=== PATIENT | male | born 1955 | race Caucasian/White ===

== ENCOUNTER 2016-10-24 16:48 | Inpatient (IN) | payer BC, OTHER ==
[~2016-10-24] VITALS: Ht 172.7 cm; Wt 79.8 kg
[~2016-10-24 16:48] MED LIST: ATOR10TA82 PO
[2016-10-24 18:08] LABS: BASO % 0.1 %; BASO ABS # 0.01 K/uL (0-0.2); COMPLETE YES; EOS % 0.3 %; HEMATOCRIT 52.5 % (42-52); IG% 0.3 %; LYMPH % 19.3 %; LYMPH ABS # 1.32 K/uL (1.2-3.4); MEAN CELL VOLUME 90.5 fL (80-100); MEAN CORPUSCULAR HGB CONC 34.3 g/dl (32-36); MEAN PLATELET VOLUME 11.6 fL (7.4-10.4); MONO % 12.3 %; NEUT % 67.7 %; PLATELET COUNT 174 K/uL (130-400); WHITE BLOOD COUNT 6.85 K/uL (4.8-10.8)
[2016-10-24] MEDS ORDERED: SODIUM CHLORIDE 0.9% 1000ML 1,000 ML IV STA ×2 (18:08)
[2016-10-24] MEDS ORDERED: ONDANSETRON 8 MG/54 ML D5W IV STA (18:08)
[2016-10-24 18:25] LABS: BUN/CREATININE RATIO 12.3 (10-20); CALCIUM 9.1 mg/dl (8.5-10.1); CREATININE 1.1 mg/dl (0.60-1.40); POTASSIUM 3.7 mmol/L (3.5-5.1)
[2016-10-24] MEDS ORDERED: MULT1PAK42 PO (18:26)
--- NOTE | 2016-10-24 19:06 | DIAGNOSTIC IMAGING REPORT ---
ABDOMEN AND PELVIS CT WITHOUT CONTRAST CT DOSE: 371.02 mGy.cm HISTORY: Pain LLQ pain, vomiting, diarrhea. H/o colon resect, diverticulitis TECHNIQUE: Multiaxial CT images of the abdomen and pelvis were performed without contrast. COMPARISON STUDY: 12/17/2014 FINDINGS: Lung bases are clear. Diffuse fatty infiltration of liver is again noted. Kidneys negative for hydronephrosis. Anchors is unremarkable. Findings a fat-containing ventral hernia again noted. There is no evidence for bowel containment currently. There is a small nonobstructive jules umbilical hernia. There are several distended loops of small bowel in the left lower quadrant region. There are several mesenteric nodes progressive from the prior exam. Minimal mesenteric infiltrative changes present. Colon is decompressed throughout. Configuration of the colon is unchanged from the prior study. Bladder is midline. IMPRESSION: 1. Findings suggesting partial small bowel obstruction relating to left lower quadrant. 2. And obstructing lesion is not well seen, with the appearance suggestive of potential adhesions 3. Collapsed colon with scattered diverticuli. 4. No evidence for acute diverticulitis. 5. Several reactive mesenteric nodes mid abdomen 6. Diffuse fatty infiltration of the liver unchanged Electronically signed by: Ruel Saenz M.D. 10/24/2016 7:04 PM
[2016-10-24] MEDS: HYDROmorphone INJ 0.5 MG/0.5 ML SYR IV PRN ×2 (19:47→20:54)
[2016-10-24] MEDS ORDERED: PROCHLORPERAZINE IV PRN (20:00)
--- NOTE | 2016-10-24 20:09 | History and Physical ---
History & Physical Date & Time of Service: Oct 24, 2016 at 20:01 Chief Complaint: Vomiting Since Yesterday,Flu Symptoms,Dehydration Primary Care Physician: Octavio Dee M.D. History of Present Illness Source: patient 61 y/o M w/Hx bowel resection due to diverticulitis in 2003. 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 States he may have had a fever at one point, denies constipation. CT obtained in ER is suspicious for partial SBO. Pt responded to antiemetics and narcotics. Past Medical/Surgical History Medical Problems: (1) Diverticulitis Status: Resolved 2) Bicuspid aortic valve with mild stenosis on echo 2014 Surgical Problems: (1) S/P colon resection Status: Resolved 2003 Family History Blood clots Kidney disease Kidney stones Father with heart disease - no specifics Social History Smoking Status: Never Smoker Drug Use: none Marital Status: Occupational Status: employed Multi-Drug Resistant Organisms History of MDRO: No Allergies Coded Allergies: No Known Allergies (Verified , 05/23/16) Home Medications Scheduled PRN Multiple Vitamins W/ Minerals (Emergen-C Immune), 1 PKT PO DAILY PRN for Review of Systems Constitutional: No chills, No fever, No sweats Eyes: No eye pain, No worsening of vision ENT: No hearing loss, No nasal symptoms, No unusual epistaxis Respiratory: No cough, No sputum, No wheezing Cardiovascular: No PND, No chest pain, No orthopnea Abdomen: + nausea, + pain, + vomiting, No constipation, No diarrhea Musculoskeletal: No joint pain, No muscle pain Genitourinary - Male: No dysuria, No hematuria, No urinary frequency, No urinary urgency Neurologic: No memory loss, No numbness/tingling, No paralysis, No weakness Psychiatric: No depression symptoms Endocrine: No fatigue Hematologic / Lymphatic: No abnormal bleeding/bruising Integumentary: No rash Allergic / Immunologic: No environmental allergies Physical Exam Vital Signs Date Time Temp Pulse Resp B/P Pulse Ox O2 Delivery O2 Flow Rate FiO2 10/24/16 19:08 67 18 157/89 98 Room Air 10/24/16 16:55 36.6 76 17 161/94 99 Room Air General Appearance: WD/WN, no apparent distress Head: normocephalic, atraumatic Eyes: normal inspection ENT: normal ENT inspection, hearing grossly normal, TMs normal, pharynx normal Neck: supple, no JVD Respiratory/Chest: chest non-tender, lungs clear, normal breath sounds, no respiratory distress, no accessory muscle use Cardiovascular: regular rate, rhythm, no edema, no gallop, no JVD, normal peripheral pulses, + systolic murmur, + pertinent finding (20-3/6 systolic murmur) Abdomen/GI: + tenderness, + abnormal bowel sounds (Hypoactive), + distended Back: normal inspection, no CVA tenderness Extremities/Musculoskelatal: normal inspection, no calf tenderness, normal capillary refill, no pedal edema, normal range of motion 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, no motor/sensory deficits, alert, normal mood/affect, normal reflexes, oriented x 3 Skin: normal color, warm/dry, no rash Lymphatic: no adenopathy Diagnostics Laboratory Results Results Past 24 Hours Test 10/24/16 17:54 10/24/16 18:31 Range/Units White Blood Count 6.85 4.8-10.8 K/uL Red Blood Count 5.80 4.7-6.1 M/uL Hemoglobin 18.0 14.0-18.0 g/dL Hematocrit 52.5 42-52 % Mean Corpuscular Volume 90.5 80-100 fL Mean Corpuscular Hemoglobin 31.0 25-34 pg Mean Corpuscular Hemoglobin Concent 34.3 32-36 g/dl Platelet Count 174 130-400 K/uL Mean Platelet Volume 11.6 7.4-10.4 fL Neutrophils (%) (Auto) 67.7 % Lymphocytes (%) (Auto) 19.3 % Monocytes (%) (Auto) 12.3 % Eosinophils (%) (Auto) 0.3 % Basophils (%) (Auto) 0.1 % Neutrophils # (Auto) 4.64 1.4-6.5 K/uL Lymphocytes # (Auto) 1.32 1.2-3.4 K/uL Monocytes # (Auto) 0.84 0.11-0.59 K/uL Eosinophils # (Auto) 0.02 0-0.5 K/uL Basophils # (Auto) 0.01 0-0.2 K/uL RDW Standard Deviation 42.0 36.4-46.3 fL RDW Coefficient of Variation 12.8 11.5-14.5 % Immature Granulocyte % (Auto) 0.3 % Immature Granulocyte # (Auto) 0.02 0.00-0.02 K/uL Sodium Level 140 136-145 mmol/L Potassium Level 3.7 3.5-5.1 mmol/L Chloride Level 101 98-107 mmol/L Carbon Dioxide Level 28 21-32 mmol/L Anion Gap 11.0 3-11 mmol/L Blood Urea Nitrogen 14 7-18 mg/dl Creatinine 1.10 0.60-1.40 mg/dl Est Creatinine Clear Calc Drug Dose 67.3 ml/min Estimated GFR () 82.9 Estimated GFR (Non- 71.6 BUN/Creatinine Ratio 12.3 10-20 Random Glucose 119 70-99 mg/dl Calcium Level 9.1 8.5-10.1 mg/dl Total Bilirubin 0.9 0.2-1 mg/dl Aspartate Amino Transf (AST/SGOT) 50 15-37 U/L Alanine Aminotransferase (ALT/SGPT) 87 12-78 U/L Alkaline Phosphatase 52 45-117 U/L Total Protein 8.3 6.4-8.2 gm/dl Albumin 4.2 3.4-5.0 gm/dl Globulin 4.1 2.5-4.0 gm/dl Albumin/Globulin Ratio 1.0 0.9-2 Lipase 160 73-393 U/L Influenza Type A Antigen Neg for Influ A NEG Influenza Type B Antigen Neg for Influ B NEG Diagnostic Radiology CT abdomen: 1. Findings suggesting partial small bowel obstruction relating to left lower quadrant. 2. Obstructing lesion is not well seen, with the appearance suggestive of potential adhesions 3. Collapsed colon with scattered diverticuli. 4. No evidence for acute diverticulitis. 5. Several reactive mesenteric nodes mid abdomen 6. Diffuse fatty infiltration of the liver unchanged Impression Assessment and Plan 61 y/o M with Hx bowel resection presenting w/abd pain, nausea, vomiting - CT suggestive of partial SBO possibly adhesion-related 1) SBO - NPO, IVF, Pain control, antiemetics PRN - surgical consult and NGT if no improvement overnight or may advance diet in AM if improved. 2) Heart murmur on exam - Likely due to bicuspid aortic valve and mild stenosis - apparent on echo 2014 - f/u as outpt - pt was unaware Full code - heparin prophylaxis Total time for this admit including discussion with ER MD and Pt, review of records, imaging, labs, med rec - 33 min Level of Care Med/Surg Resuscitation Status FULL RESUSCITATION VTE Prophylaxis VTE Risk Assessment Done? Y/N: Yes Risk Level: Low Given or contraindicated: Unfractionated heparin SQ
[2016-10-24 21:44] VITALS: BP 160/89; PULSE 79; TEMP 37.1; O2SAT 97
[2016-10-24 21:57] VITALS: Ht 172.7 cm; Wt 79.8 kg
[2016-10-24] MEDS: D5NSS + 20MEQ KCL 1,000 ML IV SCH (22:41)
[2016-10-24 23:22] VITALS: BP 153/90; PULSE 77; TEMP 37.1; TEMP 37.7; O2SAT 98
[2016-10-24] MEDS: HYDROmorphone INJ 1 MG/ML SYR IV PRN (23:43)
[2016-10-24] MEDS: ONDANSETRON INJ 2 MG/ML 2 ML VIAL IV PRN (23:43)
--- NOTE | 2016-10-25 01:39 | EMERGENCY ROOM VISIT NOTE ---
History Report prepared by Eduard: Dharmesh Mckeon Under the Supervision of: Dr. Rei Palma M.D. First contact with patient: 18:03 Chief Complaint: GI ASSESSMENT Stated Complaint: VOMITING SINCE YESTERDAY,FLU SYMPTOMS,DEHYDRATION Nursing Triage Summary: Pt c/o n/v/d since yesterday morning History of Present Illness The patient is a 61 year old male who presents to the Emergency Room with complaints of persistent vomiting beginning yesterday. He has associated diarrhea and mild abdominal soreness. He notes that his friend currently has similar symptoms, and feels that he may have the flu. The patient feels that his abdomen is sore due to his vomiting. He states that he feels very dehydrated. He has a history of diverticulitis and has had a partial colectomy in the past. Pt denies LOC, headache, fevers, chills, diaphoresis, visual changes, neck pain, chest pain, breathing difficulties, back pain, melena, hematochezia, urinary symptoms, numbness, weakness, lymphadenopathy, rash, or other complaints. Source of History: patient Onset: Yesterday Quality: other (vomiting) Timing: other (persistent) Associated Symptoms: + abdominal pain (soreness), + diarrhea, No headache Review of Systems See HPI for pertinent positives and negatives. A total of ten systems were reviewed and were otherwise negative. Past Medical & Surgical Medical Problems: (1) Diverticulitis (2) Hyperlipemia (3) SBO (small bowel obstruction) Surgical Problems: (1) S/P colon resection Family History Blood clots Kidney disease Kidney stones Social History Smoking Status: Never Smoker Drug Use: none Marital Status: Housing Status: lives with family Occupation Status: employed Current/Historical Medications Scheduled PRN Multiple Vitamins W/ Minerals (Emergen-C Immune), 1 PKT PO DAILY PRN for Allergies Coded Allergies: No Known Allergies (Verified , 05/23/16) Physical Exam Vital Signs Date Time Temp Pulse Resp B/P Pulse Ox O2 Delivery O2 Flow Rate FiO2 10/24/16 19:08 67 18 157/89 98 Room Air 10/24/16 16:55 36.6 76 17 161/94 99 Room Air Physical Exam GENERAL: Awake, alert, mildly ill appearing, no acute distress HEAD: Normocephalic, atraumatic. No edema. EYES: Normal conjunctiva. Sclera non-icteric. OROPHARYNX: Lips, tongue, and mucosa unremarkable. No erythema or exudate. NECK: Supple. No nuchal rigidity. FROM. No adenopathy. RESPIRATORY: CTA bilaterally. No wheezes rales or rhonchi. CARDIAC: Borderline tachycardic rate, normal rhythm. ABDOMEN: Soft, non distended. LLQ tenderness to palpation. No rebound or guarding. MUSCULOSKELETAL: Atraumatic. No edema. NEURO: Normal sensorium. SKIN: No rash or jaundice noted Medical Decision & Procedures ER Provider Diagnostic Interpretation: CT: Radiology results as stated below per my review and radiologist interpretation ABDOMEN AND PELVIS CT WITHOUT CONTRAST FINDINGS: Lung bases are clear. Diffuse fatty infiltration of liver is again noted. Kidneys negative for hydronephrosis. Anchors is unremarkable. Findings a fat-containing ventral hernia again noted. There is no evidence for bowel containment currently. There is a small nonobstructive jules umbilical hernia. There are several distended loops of small bowel in the left lower quadrant region. There are several mesenteric nodes progressive from the prior exam. Minimal mesenteric infiltrative changes present. Colon is decompressed throughout. Configuration of the colon is unchanged from the prior study. Bladder is midline. IMPRESSION: 1. Findings suggesting partial small bowel obstruction relating to left lower quadrant. 2. And obstructing lesion is not well seen, with the appearance suggestive of potential adhesions 3. Collapsed colon with scattered diverticuli. 4. No evidence for acute diverticulitis. 5. Several reactive mesenteric nodes mid abdomen 6. Diffuse fatty infiltration of the liver unchanged Electronically signed by: Ruel Saenz M.D. Laboratory Results 10/24/16 17:54 Red Blood Count 5.80, Mean Corpuscular Volume 90.5, Mean Corpuscular Hemoglobin 31.0, Mean Corpuscular Hemoglobin Concent 34.3, Mean Platelet Volume 11.6, Neutrophils (%) (Auto) 67.7, Lymphocytes (%) (Auto) 19.3, Monocytes (%) (Auto) 12.3, Eosinophils (%) (Auto) 0.3, Basophils (%) (Auto) 0.1, Neutrophils # (Auto ) 4.64, Lymphocytes # (Auto) 1.32, Monocytes # (Auto) 0.84, Eosinophils # (Auto ) 0.02, Basophils # (Auto) 0.01 10/24/16 17:54 Test 10/24/16 17:54 1/2/17 18:31 White Blood Count 6.85 K/uL (4.8-10.8) Red Blood Count 5.80 M/uL (4.7-6.1) Hemoglobin 18.0 g/dL (14.0-18.0) Hematocrit 52.5 % (42-52) Mean Corpuscular Volume 90.5 fL (80-100) Mean Corpuscular Hemoglobin 31.0 pg (25-34) Mean Corpuscular Hemoglobin Concent 34.3 g/dl (32-36) Platelet Count 174 K/uL (130-400) Mean Platelet Volume 11.6 fL (7.4-10.4) Neutrophils (%) (Auto) 67.7 % Lymphocytes (%) (Auto) 19.3 % Monocytes (%) (Auto) 12.3 % Eosinophils (%) (Auto) 0.3 % Basophils (%) (Auto) 0.1 % Neutrophils # (Auto) 4.64 K/uL (1.4-6.5) Lymphocytes # (Auto) 1.32 K/uL (1.2-3.4) Monocytes # (Auto) 0.84 K/uL (0.11-0.59) Eosinophils # (Auto) 0.02 K/uL (0-0.5) Basophils # (Auto) 0.01 K/uL (0-0.2) RDW Standard Deviation 42.0 fL (36.4-46.3) RDW Coefficient of Variation 12.8 % (11.5-14.5) Immature Granulocyte % (Auto) 0.3 % Immature Granulocyte # (Auto) 0.02 K/uL (0.00-0.02) Anion Gap 11.0 mmol/L (3-11) Est Creatinine Clear Calc Drug Dose 67.3 ml/min Estimated GFR () 82.9 Estimated GFR (Non- 71.6 BUN/Creatinine Ratio 12.3 (10-20) Calcium Level 9.1 mg/dl (8.5-10.1) Total Bilirubin 0.9 mg/dl (0.2-1) Aspartate Amino Transf (AST/SGOT) 50 U/L (15-37) Alanine Aminotransferase (ALT/SGPT) 87 U/L (12-78) Alkaline Phosphatase 52 U/L (45-117) Total Protein 8.3 gm/dl (6.4-8.2) Albumin 4.2 gm/dl (3.4-5.0) Globulin 4.1 gm/dl (2.5-4.0) Albumin/Globulin Ratio 1.0 (0.9-2) Lipase 160 U/L (73-393) Influenza Type A Antigen Neg for Influ A (NEG) Influenza Type B Antigen Neg for Influ B (NEG) Laboratory results reviewed by me Medications Administered Medications (Trade) Dose Ordered Sig/Augustine Route Start Time Stop Time Status Last Admin Dose Admin Ondansetron HCl 8 mg 8 mg NOW STAT IV 10/24/16 18:08 10/24/16 18:09 DC 10/24/16 18:25 8 MG Sodium Chloride 1,000 ml @ 999 mls/hr Q1H1M STAT IV 10/24/16 18:08 10/24/16 19:08 DC 10/24/16 18:25 999 MLS/HR Sodium Chloride (Nss 1000ml) 1,000 ml @ 200 mls/hr Q5H STAT IV 10/24/16 18:08 10/24/16 21:57 DC 10/24/16 18:08 200 MLS/HR Hydromorphone HCl (Dilaudid Inj) 0.5 mg Q15M PRN IV 10/24/16 19:45 10/24/16 21:57 DC 10/24/16 20:54 0.5 MG ECG Indication: abdominal pain Rate (beats per minute): 69 Rhythm: normal sinus Findings: Q waves (Septal), no acute ischemic change, no ectopy Comparison ECG Date: September 08, 2016 Change: The Q-waves are new. ED Course 1805: The patient was evaluated in room C5. A complete history and physical exam was performed. 1808: Ordered NSS 1000 mL @ 200 mL/hr IV, NSS 1000 mL @ 999 mL/hr IV, Zofran 8 mg IV. 0: Upon reexamination, the patient was resting comfortably. I discussed the test results and treatment plan with the patient. The patient will be evaluated for further management. Medical Decision Triage Nursing notes reviewed. The patient's presentation and history were concerning for nausea, vomiting, abdominal pain and diarrhea. Etiologies such as gastroenteritis, food borne illness, infections, obstruction , pancreatitis, appendicitis, diverticulitis, inflammatory bowel disease, GI bleed, biliary pathology, toxicologic as well as others were entertained. The patient was evaluated. He had gastroenteritis-like symptoms however was tender in the left lower quadrant. Blood work and imaging were obtained. CBC, chemistry panel were unremarkable. He had slight elevation of his LFTs but this was stable. CT imaging was concerning for bowel obstruction in the left lower quadrant. The patient was hydrated and was given Zofran initially. He initially declined analgesia however and reassessment did request some. He was given IV Dilaudid. Consultation was made with internal medicine for further management. The chart was completed utilizing [employer] Speech voice recognition software. Grammatical errors, random word insertions, pronoun errors, and incomplete sentences are an occasional consequence of this system due to software limitations, ambient noise, and hardware issues. Any formal questions or concerns about the content, text, or information contained within the body of this dictation should be directly addressed to the physician for clarification. Consults Time Called: 1919 Consulting Physician[facility] [place] Returned Call: 1921 Discussed the patient's case. The patient will be evaluated for further treatment and disposition. Impression Primary Impression: Bowel obstruction Additional Impression: Nausea, vomiting, and diarrhea Scribe Attestation The scribe's documentation has been prepared under my direction and personally reviewed by me in its entirety. I confirm that the note above accurately reflects all work, treatment, procedures, and medical decision making performed by me. Departure Information Dispostion Being Evaluated By Hospitalist Octavio Bui M.D. (PCP) Patient Instructions A Signature Page, My [facility]
[2016-10-25] MEDS: HYDROmorphone INJ 1 MG/ML SYR IV PRN ×3 (02:34→15:30)
[2016-10-25 05:12] LABS: URINE APPEARANCE CLEAR (CLEAR); URINE BILIRUBIN NEG (NEG); URINE COLOR YELLOW; URINE NITRITE NEG (NEG); URINE SPECIFIC GRAVITY 1.024 (1.000-1.030); UROBILINOGEN NEG (NEG); ZZUR CULT IF INDIC CLEAN CATCH NO
[2016-10-25 05:15] LABS: MANUAL MICROSCOPIC REQUIRED? NO; REVIEW REQ? NO
[2016-10-25] MEDS: D5NSS + 20MEQ KCL 1,000 ML IV SCH ×2 (06:20→19:49)
[2016-10-25 07:02] LABS: INR 1.1 (0.9-1.1); PROTHROMBIN TIME (PATIENT) 11.4 SECONDS (9.0-12.0)
[2016-10-25 07:15] VITALS: BP 146/86; PULSE 73; TEMP 37.2; O2SAT 97
[2016-10-25] MEDS: FAMOTIDINE IV INJ 20 MG in DEXTROSE 5% 100ML 100 ML IV SCH ×2 (09:52→20:25)
--- NOTE | 2016-10-25 12:09 | Hospitalist Progress Note ---
Hospitalist Progress Note Date of Service Oct 25, 2016. (Aretha Can ., PAMartinaC) Subjective Pt evaluation today including: conversation w/ patient, physical exam, chart review, lab review, review of studies, review of inpatient medication list Voiding: no voiding problems, no incontinence Patient started to experience gastroenteritis symptoms on Monday (10/23)- nausea, vomiting, and diarrhea x24 hours. On Monday (10/24), symptoms started to reside, but patient just felt lousy overall. By Monday night, he was still unable to hold fluids or food down so he came to the ED because he was worried he was becoming dehydrated. While in the ED, he noticed some LLQ pain with pressure and a CT was ordered reporting possible SBO. Currently patient is feeling well. He denies any recent nausea or vomiting. He is passing gas, but no BM. Patient believes he has not had a BM because he has eaten anything since 10/22. Abdominal pain has improved. He feels hungry. Patient denies any fever, chills, sweats, lightheadedness, dizziness, vision changes, CP, palpitations, edema, SOB , wheezing, cough, nausea, vomiting, diarrhea, urinary symptoms, melena, numbness/tingling, weakness, muscle/joint pain, anxiety/depression, active bleeding, or new skin discoloration/changes. (Aretha Can ., PA-C) Medications Current Inpatient Medications Medications (Trade) Dose Ordered Sig/Augustine Route Start Time Stop Time Status Last Admin Dose Admin Heparin Sodium (Porcine) (Heparin Sq 5000 Unit/0.5ml) 5,000 unit Q8@0600,1400,2200 SQ 10/25/16 14:00 11/24/16 13:59 Ondansetron HCl 4 mg 4 mg Q6H PRN IV 10/24/16 20:00 11/23/16 19:59 10/24/16 23:43 4 MG Potassium Chloride/Dextrose/ Sod Cl (D5nss + 20meq KCl) 1,000 ml @ 125 mls/hr Q8H IV 10/24/16 22:30 10/25/16 14:29 10/25/16 06:20 125 MLS/HR Hydromorphone HCl 0.5 mg 0.5 mg Q3H PRN IV 10/24/16 20:00 11/07/16 19:59 10/25/16 06:20 0.5 MG Prochlorperazine Edisylate 5 mg/ Syringe 10 ml @ 5 mls/min Q8H PRN IV 10/24/16 20:00 11/23/16 19:59 Famotidine/ Dextrose (Pepcid IV Inj/ D5 100ml) 102 ml @ 200 mls/hr Q12@0900,2100 IV 10/25/16 09:00 11/24/16 08:59 10/25/16 09:52 200 MLS/HR (Aretha Can, DENISE-C) Objective Vital Signs Date Time Temp Pulse Resp B/P Pulse Ox O2 Delivery O2 Flow Rate FiO2 10/25/16 07:34 Room Air 10/25/16 07:15 37.2 73 16 146/86 97 Room Air 10/24/16 23:45 Room Air 10/24/16 23:22 37.1 77 19 153/90 98 Room Air 10/24/16 21:57 Room Air 10/24/16 21:44 37.1 79 18 160/89 97 Room Air 10/24/16 20:55 70 18 161/98 98 Room Air 10/24/16 19:08 67 18 157/89 98 Room Air 10/24/16 16:55 36.6 76 17 161/94 99 Room Air (Aretha Can ., PA-C) Physical Exam General Appearance: WD/WN, no apparent distress Eyes: normal inspection, PERRL ENT: hearing grossly normal Neck: supple Respiratory/Chest: lungs clear, normal breath sounds, no respiratory distress, no accessory muscle use Cardiovascular: regular rate, rhythm, + systolic murmur Abdomen: normal bowel sounds, soft, + tenderness (Mild LLQ tenderness to palpation ) Extremities: no pedal edema, no calf tenderness Neurologic/Psychiatric: alert, normal mood/affect, oriented x 3 Skin: normal color, warm/dry, no rash (Aretha Can, DENISE-C) Laboratory Results Last 24 Hours Test 10/24/16 17:54 10/24/16 18:31 10/25/16 00:00 10/25/16 06:35 White Blood Count 6.85 K/uL Red Blood Count 5.80 M/uL Hemoglobin 18.0 g/dL Hematocrit 52.5 % Mean Corpuscular Volume 90.5 fL Mean Corpuscular Hemoglobin 31.0 pg Mean Corpuscular Hemoglobin Concent 34.3 g/dl Platelet Count 174 K/uL Mean Platelet Volume 11.6 fL Neutrophils (%) (Auto) 67.7 % Lymphocytes (%) (Auto) 19.3 % Monocytes (%) (Auto) 12.3 % Eosinophils (%) (Auto) 0.3 % Basophils (%) (Auto) 0.1 % Neutrophils # (Auto) 4.64 K/uL Lymphocytes # (Auto) 1.32 K/uL Monocytes # (Auto) 0.84 K/uL Eosinophils # (Auto) 0.02 K/uL Basophils # (Auto) 0.01 K/uL RDW Standard Deviation 42.0 fL RDW Coefficient of Variation 12.8 % Immature Granulocyte % (Auto) 0.3 % Immature Granulocyte # (Auto) 0.02 K/uL Sodium Level 140 mmol/L Potassium Level 3.7 mmol/L Chloride Level 101 mmol/L Carbon Dioxide Level 28 mmol/L Anion Gap 11.0 mmol/L Blood Urea Nitrogen 14 mg/dl Creatinine 1.10 mg/dl Est Creatinine Clear Calc Drug Dose 67.3 ml/min Estimated GFR () 82.9 Estimated GFR (Non- 71.6 BUN/Creatinine Ratio 12.3 Random Glucose 119 mg/dl Calcium Level 9.1 mg/dl Total Bilirubin 0.9 mg/dl Aspartate Amino Transf (AST/SGOT) 50 U/L Alanine Aminotransferase (ALT/SGPT) 87 U/L Alkaline Phosphatase 52 U/L Total Protein 8.3 gm/dl Albumin 4.2 gm/dl Globulin 4.1 gm/dl Albumin/Globulin Ratio 1.0 Lipase 160 U/L Hepatitis C Antibody Screen NEG Influenza Type A Antigen Neg for Influ A Influenza Type B Antigen Neg for Influ B Urine Color YELLOW Urine Appearance CLEAR Urine pH 7.0 Urine Specific [place] 1.024 Urine Protein NEG Urine Glucose (UA) NEG Urine Ketones TRACE Urine Occult Blood NEG Urine Nitrite NEG Urine Bilirubin NEG Urine Urobilinogen NEG Urine Leukocyte Esterase NEG Prothrombin Time 11.4 SECONDS Prothromb Time International Ratio 1.1 (Aretha Can, PAMartinaC) Assessment and Plan 61 y/o M with Hx bowel resection presenting w/ abd pain, nausea, vomiting - CT suggestive of partial SBO possibly adhesion-related ?SBO: -Admit med/surg -NPO --Start clear liquid diet and advance as tolerated. (10/25) -IV D5NSS + 20 mEq KCL @ 125 ml/hr -IV Dilaudid for pain control -IV Pepcid for indigestion -Surgical consult and NGT if no improvement or symptoms begin to worsen Heart murmur on exam: -Likely due to bicuspid aortic valve and mild stenosis - apparent on echo 2014 - f/u as outpt - pt was unaware DVT prophylaxis: -Heparin 5000 units SQ q12 hrs -CHULA and SCDs Code Status: -LEVEL I, FULL Dispo: -Advance diet as tolerated. -Discharge to home once medically stable. ?tomorrow (Aretha Can, PA-C) Reviewed: Pt Seen/Exam by Me, HO Notes, Labs, RAD (Yazmin Nguyen MD) History Agree with above PA HPI/ROS. Pt eating clears for lunch and feeling much improved. No more N/V, is passing gas, only mild LLQ pain (Yazmin Nguyen MD) All Other Systems: Reviewed and Negative (except as per HPI) (Yazmin Nguyen MD) General Appearance: WD/WN, no apparent distress Eye Exam: bilateral eye normal inspection Neck: trachea midline Respiratory: lungs clear, normal breath sounds, no respiratory distress, no accessory muscle use Cardiovascular: normal peripheral pulses, regular rate, rhythm, no edema, no gallop, systolic murmur (2/6 MERRY heard best at RUSB) Gastrointestinal: normal bowel sounds, soft, no organomegaly, tenderness (mild in LLQ without guarding or rebound) Extremities: non-tender, normal inspection, no pedal edema, no calf tenderness Neurologic/Psychiatric: alert, normal mood/affect, oriented x 3 Skin Characteristics: normal color, warm/dry (Yazmin Nguyen MD) Assessment/Plan AGree with above PA A/P with the following exceptions/additions: -PSBO, Likely viral GE--> all improving. Has h/o partial colectomy with colostomy and then reversal, also with ventral hernia currently, could have adhesive disease and is currently undergoing eval to repair his ventral hernia as an outpat with Dr. Easton -repeat AAS now to assess for resolution of PSBO -if AAS improved and tolerates clears, can advance to soft diet this evening -continue IVFs for now and can d/c once taking adequate po -if not improving, will consult Gen Surgery Elevated BPs- likely secondary to pain -observe, no nmeds for now Fatty liver, elevated LFTs, chronic and stable -f/u as an outpatient (Yazmin Nguyen MD)
--- NOTE | 2016-10-25 13:38 | DIAGNOSTIC IMAGING REPORT ---
PA CHEST RADIOGRAPH AND UPRIGHT AND SUPINE AP RADIOGRAPHS OF THE ABDOMEN CLINICAL HISTORY: Follow up partial small bowel obstruction. COMPARISON STUDY: Chest radiograph December 17, [address] of the abdomen and pelvis October 24, 2016 FINDINGS: No pneumothorax or pleural effusion is present. Lungs are clear. Cardiac size is normal. Mediastinal contours are normal. There is no free air. Moderate small bowel dilatation is similar to prior exam. There are scattered colonic gas. Air-fluid levels are noted on the upright projections. IMPRESSION: 1. Findings suggestive of a persistent small bowel obstruction. 2. No free air. 3. No acute cardiopulmonary findings. Electronically signed by: Mitch Merida M.D. 10/25/2016 1:36 PM
[2016-10-25] MEDS: HEPARIN SOD 5000 UNIT/0.5 ML CARP SQ SCH ×2 (14:09→21:24)
[2016-10-25 15:03] VITALS: BP 153/79; PULSE 66; TEMP 36.9; O2SAT 98
[2016-10-25 15:15] VITALS: O2SAT 98
--- NOTE | 2016-10-25 19:41 | History and Physical ---
History & Physical Date & Time of Service: Oct 25, 2016 at 19:36 Chief Complaint: SBO Primary Care Physician: Octavio Dee M.D. History of Present Illness Source: patient 61 y/o M w/Hx bowel resection due to diverticulitis in 2003. 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 States he may have had a fever at one point, denies constipation. CT obtained in ER is suspicious for partial SBO. Pt responded to antiemetics and narcotics. I got a call to consult this pt possible SBO, now pt has no abdominal pain, pt passed gas and liquid stool today, pt denies N/V, no fever. Past Medical/Surgical History Medical Problems: (1) Diverticulitis Status: Resolved Surgical Problems: (1) S/P colon resection Status: Resolved Family History Blood clots Kidney disease Kidney stones Social History Smoking Status: Never Smoker Smokeless Tobacco Use: No Alcohol Use: occasionally Drug Use: none Marital Status: Occupational Status: employed Multi-Drug Resistant Organisms History of MDRO: No Allergies Coded Allergies: No Known Allergies (Verified , 05/23/16) Home Medications Scheduled PRN Multiple Vitamins W/ Minerals (Emergen-C Immune), 1 PKT PO DAILY PRN for Review of Systems Constitutional: No chills, No fatigue, No fever, No problem reported, No sweats , No weakness, No weight loss Eyes: No diplopia, No discharge, No eye pain, No problem reported, No redness, No worsening of vision ENT: No dental problems, No hearing loss, No nasal symptoms, No problem reported, No sore throat, No tinnitus, No trouble swallowing, No unusual epistaxis Respiratory: No cough, No dyspnea at rest, No dyspnea on exertion, No hemoptysis, No problem reported, No shortness of breath, No sputum, No wheezing Cardiovascular: No PND, No chest pain, No claudication, No edema, No orthopnea , No palpitations, No problem reported Abdomen: No GI bleeding, No constipation, No diarrhea, No nausea, No pain, No problem reported, No vomiting Musculoskeletal: No calf pain, No joint pain, No muscle pain, No problem reported, No swelling Genitourinary - Male: No dysuria, No hematuria, No impotence, No lesions, No penile discharge, No problem reported, No urinary frequency, No urinary hesitancy, No urinary incontinence, No urinary retention, No urinary urgency Neurologic: No balance problems, No memory loss, No numbness/tingling, No paralysis, No problem reported, No vertigo, No weakness Psychiatric: No anhedonism, No anxiety, No depression symptoms, No insomnia, No problem reported, No substance abuse Endocrine: No excessive thirst, No excessive urination, No fatigue, No problem reported Hematologic / Lymphatic: No abnormal bleeding/bruising, No clotting problems, No night sweats, No problem reported, No swollen lymph nodes Physical Exam Vital Signs Date Time Temp Pulse Resp B/P Pulse Ox O2 Delivery O2 Flow Rate FiO2 10/25/16 15:15 98 Room Air 10/25/16 15:03 36.9 66 16 153/79 98 Room Air 10/25/16 07:34 Room Air 10/25/16 07:15 37.2 73 16 146/86 97 Room Air 10/24/16 23:45 Room Air 10/24/16 23:22 37.1 77 19 153/90 98 Room Air 10/24/16 21:57 Room Air 10/24/16 21:44 37.1 79 18 160/89 97 Room Air 10/24/16 20:55 70 18 161/98 98 Room Air General Appearance: WD/WN, no apparent distress Head: normocephalic, atraumatic Eyes: normal inspection ENT: normal ENT inspection, hearing grossly normal, TMs normal, pharynx normal Neck: supple, no JVD Respiratory/Chest: chest non-tender, lungs clear, normal breath sounds, no respiratory distress, no accessory muscle use Cardiovascular: regular rate, rhythm, no edema, no gallop, no JVD, normal peripheral pulses, + systolic murmur, + pertinent finding (20-3/6 systolic murmur) Abdomen/GI: normal bowel sounds, non tender, soft, no organomegaly, + tenderness, + abnormal bowel sounds (Hypoactive), + distended Back: normal inspection, no CVA tenderness Extremities/Musculoskelatal: normal inspection, no calf tenderness, normal capillary refill, no pedal edema, normal range of motion 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, no motor/sensory deficits, alert, normal mood/affect, normal reflexes, oriented x 3 Skin: normal color, warm/dry, no rash Lymphatic: no adenopathy Diagnostics Laboratory Results Results Past 24 Hours Test 10/25/16 00:00 10/25/16 06:35 Range/Units Urine Color YELLOW Urine Appearance CLEAR CLEAR Urine pH 7.0 4.5-7.5 Urine Specific [place] 1.024 1.000-1.030 Urine Protein NEG NEG Urine Glucose (UA) NEG NEG Urine Ketones TRACE NEG Urine Occult Blood NEG NEG Urine Nitrite NEG NEG Urine Bilirubin NEG NEG Urine Urobilinogen NEG NEG Urine Leukocyte Esterase NEG NEG Prothrombin Time 11.4 9.0-12.0 SECONDS Prothromb Time International Ratio 1.1 0.9-1.[address] scan-IMPRESSION: 1. Findings suggesting partial small bowel obstruction relating to left lower quadrant. 2. And obstructing lesion is not well seen, with the appearance suggestive of potential adhesions 3. Collapsed colon with scattered diverticuli. 4. No evidence for acute diverticulitis. 5. Several reactive mesenteric nodes mid abdomen 6. Diffuse fatty infiltration of the liver unchanged Impression Assessment and Plan IMP: resolved SBO clear diet tomorrow, sign off today, please call if anything change, Thanks, Advanced Directives Existing Advance Directive: No Existing Living Will: No Existing Power of Classification Analyst: No VTE Prophylaxis VTE Risk Assessment Done? Y/N: Yes Risk Level: Low Given or contraindicated: Unfractionated heparin SQ
[2016-10-25] MEDS: ONDANSETRON INJ 2 MG/ML 2 ML VIAL IV PRN (21:23)
[2016-10-25 22:51] VITALS: BP 136/71; PULSE 65; TEMP 37.3; O2SAT 98
[2016-10-26] MEDS: HYDROmorphone INJ 1 MG/ML SYR IV PRN (00:24)
[2016-10-26] MEDS: HEPARIN SOD 5000 UNIT/0.5 ML CARP SQ SCH ×2 (05:47→13:31)
[2016-10-26 06:48] VITALS: BP 126/83; PULSE 61; TEMP 36.8; O2SAT 96
[2016-10-26 07:13] LABS: BASO % 0.3 %; BASO ABS # 0.02 K/uL (0-0.2); COMPLETE YES; EOS % 3.2 %; HEMATOCRIT 45.9 % (42-52); IG% 0.2 %; LYMPH ABS # 2.23 K/uL (1.2-3.4); MEAN CELL VOLUME 91.4 fL (80-100); MEAN CORPUSCULAR HEMOGLOBIN 31.1 pg (25-34); MEAN PLATELET VOLUME 12.3 fL (7.4-10.4); MONO % 13.7 %; NEUT % 46.6 %; PLATELET COUNT 153 K/uL (130-400); RED BLOOD COUNT 5.02 M/uL (4.7-6.1)
[2016-10-26 07:35] LABS: BUN/CREATININE RATIO 9.1 (10-20); CALCIUM 8.3 mg/dl (8.5-10.1); CREATININE 0.99 mg/dl (0.60-1.40); MAGNESIUM 2.1 mg/dl (1.8-2.4); POTASSIUM 4.1 mmol/L (3.5-5.1)
--- NOTE | 2016-10-26 08:16 | DIAGNOSTIC IMAGING REPORT ---
ABDOMEN 2 VIEWS CLINICAL HISTORY: Follow-up small bowel obstruction. COMPARISON STUDY: Abdominal series October 25, [address] of the abdomen and pelvis October 24, 2016. FINDINGS: Mild small bowel dilatation persists. However, small bowel dilatation has improved. There is increasing colonic gas. There is no free air. IMPRESSION: 1. Findings suggestive of a persistent but improving small bowel obstruction. 2. No free air. Electronically signed by: Mitch Merida M.D. 10/26/2016 8:15 AM
[2016-10-26] MEDS: D5NSS + 20MEQ KCL 1,000 ML IV SCH (09:34)
[2016-10-26] MEDS: FAMOTIDINE IV INJ 20 MG in DEXTROSE 5% 100ML 100 ML IV SCH (09:36)
--- NOTE | 2016-10-26 11:53 | Discharge Instructions ---
Discharge Instructions Admission Reason for Admission: SBO (Aretha Can PA-C) Discharge Discharge Diagnosis / Problem: SBO (Aretha Can PA-C) Discharge Goals Goal(s): Decrease discomfort, Improve function, Learn about illness, Diagnostic testing, Therapeutic intervention, Prevent Disease Progression (Aretha Can PA-C) Activity Recommendations Activity Limitations: resume your previous activity . (Aretha Can PA-C) Instructions / Follow-Up Instructions / Follow-Up Continue to advance your diet slowly and as tolerated. Drink plenty of fluids. You may resume all regular home medications Follow-up with your PCP within 1 week Follow-up with Dr. Easton to discuss hernia repair and possible adhesion lysis to prevent further SBO (Aretha Can PA-C) Current Hospital Diet Patient's current hospital diet: Clear Liquid Diet (Aretha Can PA-C) Discharge Diet Recommended Diet: Regular Diet (Aretha Can PA-C) Procedures Procedures Performed: 1. Abdominal CT 2. Chest x-ray (Aretha Can PA-C) Pending Studies Studies pending at discharge: no (Aretha Can PA-C) Laboratory Results Last 24 Hours Test 10/26/16 06:36 White Blood Count 6.20 K/uL Red Blood Count 5.02 M/uL Hemoglobin 15.6 g/dL Hematocrit 45.9 % Mean Corpuscular Volume 91.4 fL Mean Corpuscular Hemoglobin 31.1 pg Mean Corpuscular Hemoglobin Concent 34.0 g/dl Platelet Count 153 K/uL Mean Platelet Volume 12.3 fL Neutrophils (%) (Auto) 46.6 % Lymphocytes (%) (Auto) 36.0 % Monocytes (%) (Auto) 13.7 % Eosinophils (%) (Auto) 3.2 % Basophils (%) (Auto) 0.3 % Neutrophils # (Auto) 2.89 K/uL Lymphocytes # (Auto) 2.23 K/uL Monocytes # (Auto) 0.85 K/uL Eosinophils # (Auto) 0.20 K/uL Basophils # (Auto) 0.02 K/uL RDW Standard Deviation 43.1 fL RDW Coefficient of Variation 12.9 % Immature Granulocyte % (Auto) 0.2 % Immature Granulocyte # (Auto) 0.01 K/uL Sodium Level 141 mmol/L Potassium Level 4.1 mmol/L Chloride Level 108 mmol/L Carbon Dioxide Level 26 mmol/L Anion Gap 7.0 mmol/L Blood Urea Nitrogen 9 mg/dl Creatinine 0.99 mg/dl Est Creatinine Clear Calc Drug Dose 74.8 ml/min Estimated GFR () 94.2 Estimated GFR (Non- 81.3 BUN/Creatinine Ratio 9.1 Random Glucose 96 mg/dl Calcium Level 8.3 mg/dl Magnesium Level 2.1 mg/dl Total Bilirubin 0.9 mg/dl Direct Bilirubin 0.2 mg/dl Aspartate Amino Transf (AST/SGOT) 36 U/L Alanine Aminotransferase (ALT/SGPT) 72 U/L Alkaline Phosphatase 42 U/L Total Protein 6.7 gm/dl Albumin 3.3 gm/dl (Aretha Can PA-C) Medical Emergencies . Who to Call and When: Medical Emergencies: If at any time you feel your situation is an emergency, please call 911 immediately. . (Aretha Can PA-C) Non-Emergent Contact Non-Emergency issues call your: Primary Care Provider Call Non-Emergent contact if: you have a fever, your pain is not controlled, your pain is worsening, your pain is unusual for you, your pain is concerning you, you have any medication questions . (Aretha Can PA-C) Past History Medical & Surgical History: (1) SBO (small bowel obstruction) (2) Nausea, vomiting, and diarrhea (3) Hyperlipemia (4) Diverticulitis (5) S/P colon resection (Aretha Can PA-C) . "Provider Documentation" section prepared by Aretha Can. (Aretha Can PA-C) VTE Core Measure Inpt VTE Proph given/why not?: Unfractionated heparin SQ (Aretha Can PA-C)
--- NOTE | 2016-10-26 12:03 | Discharge Summary ---
Discharge Summary Admission Date: Oct 24, 2016 at 19:59 Discharge Date: Oct 26, 2016 Discharge Disposition: Home Principal Diagnosis: SBO Procedures: ABDOMEN AND PELVIS CT WITHOUT CONTRAST CT DOSE: 371.02 mGy.cm HISTORY: Pain LLQ pain, vomiting, diarrhea. H/o colon resect, diverticulitis TECHNIQUE: Multiaxial CT images of the abdomen and pelvis were performed without contrast. COMPARISON STUDY: 12/17/2014 FINDINGS: Lung bases are clear. Diffuse fatty infiltration of liver is again noted. Kidneys negative for hydronephrosis. Anchors is unremarkable. Findings a fat-containing ventral hernia again noted. There is no evidence for bowel containment currently. There is a small nonobstructive jules umbilical hernia. There are several distended loops of small bowel in the left lower quadrant region. There are several mesenteric nodes progressive from the prior exam. Minimal mesenteric infiltrative changes present. Colon is decompressed throughout. Configuration of the colon is unchanged from the prior study. Bladder is midline. IMPRESSION: 1. Findings suggesting partial small bowel obstruction relating to left lower quadrant. 2. And obstructing lesion is not well seen, with the appearance suggestive of potential adhesions 3. Collapsed colon with scattered diverticuli. 4. No evidence for acute diverticulitis. 5. Several reactive mesenteric nodes mid abdomen 6. Diffuse fatty infiltration of the liver unchanged Electronically signed by: Ruel Saenz M.D. 10/24/2016 7:04 PM The status of this report is Signed. Draft = Not yet reviewed or approved by Radiologist. Signed = Reviewed and approved by Radiologist. PA CHEST RADIOGRAPH AND UPRIGHT AND SUPINE AP RADIOGRAPHS OF THE ABDOMEN CLINICAL HISTORY: Follow up partial small bowel obstruction. COMPARISON STUDY: Chest radiograph December 17, [address] of the abdomen and pelvis October 24, 2016 FINDINGS: No pneumothorax or pleural effusion is present. Lungs are clear. Cardiac size is normal. Mediastinal contours are normal. There is no free air. Moderate small bowel dilatation is similar to prior exam. There are scattered colonic gas. Air-fluid levels are noted on the upright projections. IMPRESSION: 1. Findings suggestive of a persistent small bowel obstruction. 2. No free air. 3. No acute cardiopulmonary findings. Electronically signed by: Mitch Merida M.D. 10/25/2016 1:36 PM The status of this report is Signed. Draft = Not yet reviewed or approved by Radiologist. Signed = Reviewed and approved by Radiologist. ABDOMEN 2 VIEWS CLINICAL HISTORY: Follow-up small bowel obstruction. COMPARISON STUDY: Abdominal series October 25, [address] of the abdomen and pelvis October 24, 2016. FINDINGS: Mild small bowel dilatation persists. However, small bowel dilatation has improved. There is increasing colonic gas. There is no free air. IMPRESSION: 1. Findings suggestive of a persistent but improving small bowel obstruction. 2. No free air. Electronically signed by: Mitch Merida M.D. 10/26/2016 8:15 AM The status of this report is Signed. Draft = Not yet reviewed or approved by Radiologist. Signed = Reviewed and approved by Radiologist. Consultations: General surgery- Dr. Stoll (Aretha Can, PA-C) Medication Reconciliation Continued Medications: Multiple Vitamins W/ Minerals (Emergen-C Immune) 1 Minesh Minesh 1 PKT PO DAILY PRN for Referrals At Discharge Follow up Referrals: Physician Referral - Within 1 Week with Octavio Dee M.D. Surgery Referral - Within 1-2 Weeks with João Easton M.D. Discharge Exam Review of Systems: Constitutional: No chills, No fatigue, No fever, No sweats, No weakness ENT: No hearing loss Respiratory: No cough, No hemoptysis, No shortness of breath Cardiovascular: No chest pain, No edema, No palpitations Abdomen: No constipation, No diarrhea, No nausea, No pain, No vomiting Musculoskeletal: No calf pain, No joint pain, No muscle pain, No swelling Genitourinary - Male: No dysuria Neurologic: No numbness/tingling, No weakness Psychiatric: No anxiety, No depression symptoms Hematologic / Lymphatic: No abnormal bleeding/bruising Integumentary: No itch, No new/changing skin lesions, No rash Physical Exam: General Appearance: no apparent distress Eyes: normal inspection, PERRL ENT: hearing grossly normal Neck: supple Respiratory/Chest: lungs clear, normal breath sounds, no respiratory distress, no accessory muscle use Cardiovascular: regular rate, rhythm, normal peripheral pulses, + systolic murmur Abdomen / GI: normal bowel sounds, non tender, soft Extremities: no calf tenderness, no pedal edema Neurologic/Psychiatric: alert, normal mood/affect, oriented x 3 Skin: normal color, warm/dry, no rash (Aretha Can, PA-C) Hospital Course 61 y/o M with Hx bowel resection presenting w/ abd pain, nausea, vomiting - CT suggestive of partial SBO possibly adhesion-related. Patient started to experience gastroenteritis symptoms on Monday (10/23)- nausea, vomiting, and diarrhea x24 hours. On Monday (10/24), symptoms started to reside, but patient just felt lousy overall. By Monday night, he was still unable to hold fluids or food down so he came to the ED because he was worried he was becoming dehydrated. While in the ED, he noticed some LLQ pain with pressure and a CT was ordered reporting possible SBO. SBO: -Admit med/surg -NPO --Start clear liquid diet and advance as tolerated. (10/25) -IV D5NSS + 20 mEq KCL @ 125 ml/hr -IV Dilaudid for pain control -IV Pepcid for indigestion -Surgical consult, appreciate recommendations --No intervention -Repeated abdominal x-ray showing improving SBO Heart murmur on exam: -Likely due to bicuspid aortic valve and mild stenosis - apparent on echo 2014 - f/u as outpt - pt was unaware -Instructed to follow-up with PCP DVT prophylaxis: -Heparin 5000 units SQ q12 hrs -CHULA and SCDs Code Status: -LEVEL I, FULL Dispo: -Discharge to home Total Time Spent: Greater than 30 minutes This includes examination of the patient, discharge planning, medication reconciliation, and communication with other providers. (Aretha Can, DENISE-C) Discharge Instructions Please refer to the electronic Patient Visit Report (Discharge Instructions) for additional information. (Aretha Can, DENISE-C) Follow-Up Please follow-up with your PCP within 5-7 days. Please follow up with Dr. Easton Please follow-up/keep all of your subspecialty appointments. (Aretha Can, DENISE-C) Additional Copies To Octavio Dee M.D.; João Easton M.D. Reviewed: Pt Seen/Exam by Me, HO Notes, Labs, RAD (Yazmin Nguyen MD) History Agree with above PA discharge summary/ROS. Pt doing very well, advanced diet to regular and he tolerated well, no more N/V, he is passing flatus and no abd pain at all. (Yazmin Nguyen MD) All Other Systems: Reviewed and Negative (Yazmin Nguyen MD) General Appearance: WD/WN, no apparent distress Eye Exam: bilateral eye normal inspection Ears, Nose, Throat: hearing grossly normal Neck: trachea midline Respiratory: lungs clear, normal breath sounds, no respiratory distress, no accessory muscle use Cardiovascular: regular rate, rhythm, no edema, no gallop, systolic murmur (2/ 6 at RUSB) Gastrointestinal: normal bowel sounds, non tender, soft, no organomegaly, no pulsatile mass, hernia (easily reducible ventral hernia, small) Extremities: non-tender, normal inspection, no pedal edema, no calf tenderness Neurologic/Psychiatric: alert, normal mood/affect, oriented x 3 Skin Characteristics: normal color, warm/dry (Yazmin Nguyen MD) Assessment/Plan AGree with above PA A/P with the following exceptions/additions: -PSBO, Likely viral GE--> all improving. Has h/o partial colectomy with colostomy and then reversal, also with ventral hernia currently, could have adhesive disease and is currently undergoing eval to repair his ventral hernia as an outpat with Dr. Easton -improved and ready for discharge to home with SUrgery f/u Elevated BPs- likely secondary to pain have resolved Fatty liver, elevated LFTs, chronic and stable -f/u as an outpatient (Yazmin Nguyen MD)
[2016-10-26 16:46] VITALS: BP 126/80; PULSE 57; TEMP 37.4; O2SAT 95
[2016-10-26 19:06] VITALS: BP 126/80; PULSE 57; TEMP 37.4; O2SAT 95
[2017-01-14] MEDS ORDERED: PSYL0.524 PO (10:58)
[2017-01-22] MEDS ORDERED: PANT40TA PO (12:24)
== END 2016-10-26 20:26 | disposition home or self-care (01) | DRG 389 ==
LOC: ENRESERVTM → ENRESERVDT → C.EDB 16:49 → C.MSW 19:59
PROVIDERS: ADMIT Internal Medicine; ATTEND Family Medicine
DX: K56.5 Intestinal adhesions [bands] with obstruction (postinfection) (principal); Q23.1 Congenital insufficiency of aortic valve; A08.4 Viral intestinal infection, unspecified; R03.0 Elevated blood-pressure reading, without diagnosis of hypertension; I35.2 Nonrheumatic aortic (valve) stenosis with insufficiency; K76.0 Fatty (change of) liver, not elsewhere classified; R94.5 Abnormal results of liver function studies; K43.9 Ventral hernia without obstruction or gangrene; Z90.49 Acquired absence of other specified parts of digestive tract

== ENCOUNTER → 2016-12-22 | Day surgery (SDC) | payer OTHER ==
[2016-12-16 13:59] VITALS: Ht 177.8 cm; Wt 77.3 kg
[~2016-12-22] VITALS: Ht 177.8 cm; Wt 77.3 kg
[~2016-12-22] MED LIST changes: -ATOR10TA82 PO; +CEPH500C2 PO; +HYDR-5688 PO; +IBUP-1050 PO; +LIDOCAINE HCL 2% 2 ML VIAL (20MG/ML) ONE; +MIDAZOLAM HCL 1 MG/ML 2ML VIAL ONE; +ONDANSETRON INJ 2 MG/ML 2 ML VIAL ONE; +PANT40TA PO; +PROPOFOL IV EMULSION 10 MG/ML 20 ML VIAL IV ONE; +PSYL0.524 PO; +SODIUM CHLORIDE 0.9% 500ML 500 ML IV ONE
--- NOTE | 2016-12-22 16:16 | Endo History and Physical ---
History & Physical Date of Service: Dec 22, 2016. Chief Complaint: change in bowel habits Referring Physician: Dr. Octavio Dee History of Present Illness 61 yo CM who presents for colonoscopy secondary to change in bowel habits. Past Surgical History Hx Cardiac Surgery: No Hx Internal Defibrillator: No Hx Pacemaker: No Hx Abdominal Surgery: Yes (COLON RESECTION AND REVERSAL ) Hx of Implantable Prosthesis: No Hx Post-Op Nausea and Vomiting: No Hx Cancer Surgery: No Hx Thoracic Surgery: No Hx Orthopedic: No Hx Urinary Tract Surgery: No Family History None Social History Smoking Status: Never Smoker Hx Substance Use: No Hx Alcohol Use: Yes (2 DRINKS PER DAY ON AVERAGE ) Allergies Coded Allergies: No Known Allergies (Verified , 12/19/16) Current Medications Reported Home Medications Medications Dose Route/Sig Max Daily Dose Days Date Category Metamucil (Psyllium) 0.52 Gm Cap 1 Cap PO PRN 12/19/16 Reported Vital Signs Weight (Kilograms): 77.27 Height (Feet): 5 Height (Inches): 10 Date Time Temp Pulse Resp B/P Pulse Ox O2 Delivery O2 Flow Rate FiO2 12/22/16 15:13 36.8 88 16 160/90 97 Room Air Physical Exam General Appearance: WD/WN, no apparent distress Respiratory/Chest: Auscultation: breath sounds normal Cardiovascular: Heart Auscultation: RRR Abdomen: Bowel Sounds: normal Inspection & Palpation: soft, non-distended, no tenderness, guarding & rebound Assessment and Plan Assessment: 61 yo CM who presents for colonoscopy secondary to change in bowel habits. Plan: Proceed with colonoscopy.
--- NOTE | 2016-12-22 16:35 | Discharge Instructions ---
Endoscopy Patient Instructions Date / Procedure(s) Performed Dec 22, 2016. Colonoscopy Allergy Information Coded Allergies: No Known Allergies (Verified , 12/19/16) Discharge Date / Findings Dec 22, 2016. Diverticulosis Internal hemorrhoids Medication Instructions OK to resume all medications today as prescribed. Reported Home Medications Medications Dose Route/Sig Max Daily Dose Days Date Category Metamucil (Psyllium) 0.52 Gm Cap 1 Cap PO PRN 12/19/16 Reported Provider Instructions Activity Restrictions - No exercising or heavy lifting for 24 hours. - Do not drink alcohol the day of the procedure. - Do not drive a car or operate machinery until the day after the procedure. - Do not make any important decisions or sign important papers in 24 hours after the procedure. Following Day: - Return to full activity which may include returning to work/school. Diet Start your diet with liquids and light foods (jello, soup, juice, toast). Then eat your usual diet if not nauseated. Treatment For Common After Affects For mild abdominal pain, bloating, or excessive gas: - Rest - Eat lightly - Lie on right side Follow-Up Information Follow-up with Dr. Octavio Dee as scheduled Anesthesia Information What You Should Know You have had a procedure that required some medicine to reduce anxiety and discomfort. This treatment is called moderate sedation. After receiving the treatment, you may be sleepy, but you will be able to breathe on your own. The effects of the treatment may last for several hours. Follow these instructions along with Activity/Diet recommendations noted above: * Do NOT do anything where dizziness or clumsiness would be dangerous. * Rest quietly at home today, then you can be up and about tomorrow. * Have a responsible person stay with you the rest of today. * You may have had an I.V. today. If so, you may take the dressing off later today. Recommendations Call your doctor if: * Trouble breathing * Continuous vomiting for more than 24 hours * Temperature above 101 degrees * Severe abdominal pain or bloating * Pain not relieved by pain medicine ordered * There is increased drainage or redness from any incision * A large amount of rectal bleeding greater than 2-3 tablespoons. (If you had a polyp/s removed or have hemorrhoids, a small amount of blood - from the rectum is to be expected.) * You have any unanswered questions or concerns. IN THE EVENT OF A SERIOUS EMERGENCY, GO TO THE NEAREST EMERGENCY ROOM Your discharge instructions were prepared by provider Isai Cardona. Patient Instructions Signature Page Vince Houston Patient (or Guardian) Signature/Date: I have read and understand the instructions given to me by my caregivers. Caregiver/RN/Doctor Signature/Date: The above-named patient and/or guardian has received patient instructions on this date. + Original Patient Signature Page (only) stays with chart. Please make copy for patient.
[2016-12-22 17:03] VITALS: BP 124/77; PULSE 68; O2SAT 97
--- NOTE | 2016-12-22 17:11 | Anesthesiology Progress Note ---
Anesthesia Post Op Note Date & Time Dec 22, 2016 at 17:11 Vital Signs Pain Intensity: 0 Vital Signs Past 12 Hours Date Time Temp Pulse Resp B/P Pulse Ox O2 Delivery O2 Flow Rate FiO2 12/22/16 17:03 68 16 124/77 97 Room Air 12/22/16 16:48 76 16 116/69 98 Room Air 12/22/16 16:43 111/65 12/22/16 16:33 72 16 95/54 98 Room Air 12/22/16 15:13 36.8 88 16 160/90 97 Room Air Notes Mental Status: alert / awake / arousable, participated in evaluation Pt Amnestic to Procedure: Yes Nausea / Vomiting: adequately controlled Pain: adequately controlled Airway Patency, RR, SpO2: stable & adequate BP & HR: stable & adequate Hydration State: stable & adequate Anesthetic Complications: no major complications apparent
--- NOTE | 2016-12-23 00:46 | GI REPORT ---
Procedure Date: 12/22/2016 3:37 PM Procedure: Colonoscopy Indications: Change in bowel habits Medicines: Monitored Anesthesia Care Complications: No immediate complications. Estimated Blood Loss: Estimated blood loss: none. Procedure: Pre-Anesthesia Assessment: - Prior to the procedure, a History and Physical was performed, and patient medications and allergies were reviewed. The patient's tolerance of previous anesthesia was also reviewed. The risks and benefits of the procedure and the sedation options and risks were discussed with the patient. All questions were answered, and informed consent was obtained. Prior Anticoagulants: The patient has taken no previous anticoagulant or antiplatelet agents. ASA Grade Assessment: III - A patient with severe systemic disease. After reviewing the risks and benefits, the patient was deemed in satisfactory condition to undergo the procedure. After I obtained informed consent, the scope was passed under direct vision. Throughout the procedure, the patient's blood pressure, pulse, and oxygen saturations were monitored continuously. The scope was introduced through the anus and advanced to the terminal ileum. The colonoscopy was performed without difficulty. The patient tolerated the procedure well. The quality of the bowel preparation was good. The terminal ileum, ileocecal valve, appendiceal orifice, and rectum were photographed. Findings: Scattered small-mouthed diverticula were found in the entire colon. There was evidence of a prior end-to-end colo-colonic anastomosis in the sigmoid colon. This was patent and was characterized by healthy appearing mucosa. Non-bleeding internal hemorrhoids were found during retroflexion. The hemorrhoids were small. Impression: - Diverticulosis in the entire examined colon. - Patent end-to-end colo-colonic anastomosis, characterized by healthy appearing mucosa. - Non-bleeding internal hemorrhoids. - No specimens collected. Recommendation: - Resume previous diet. - Continue present medications. - Repeat colonoscopy in 10 years for surveillance. - Return to primary care physician as previously scheduled. Isai Cardona DO 12/22/2016 4:33:42 PM This report has been signed electronically. Note Initiated On: 12/22/2016 3:37 PM I attest to the content of the Intraoperative Record and orders documented therein, exceptions below
== END | disposition home or self-care (01) ==
LOC: C.GI 14:55
PROVIDERS: ATTEND Internal Medicine
DX: R19.4 Change in bowel habit (principal); K57.30 Diverticulosis of large intestine without perforation or abscess without bleeding; Z98.0 Intestinal bypass and anastomosis status; K64.8 Other hemorrhoids

== ENCOUNTER 2017-01-05 06:10 | Inpatient (IN) | payer OTHER ==
[2016-12-19 10:58] VITALS: BMI 25.0
--- NOTE | 2016-12-19 11:26 | PAT Medication Instructions ---
Service Date Dec 19, 2016. Current Home Medication List Psyllium (Metamucil), 1 CAP PO PRN Medication Instructions For Your Scheduled Surgery - Hold the following medications the morning of surgery: Psyllium (Metamucil), 1 CAP PO PRN - Take the following medications as scheduled the day/night before surgery: Psyllium (Metamucil), 1 CAP PO PRN If you have any questions please call us at [phone] or [phone] ( [place]) or [phone]
[2016-12-19 11:42] LABS: BASO % 0.4 %; BASO ABS # 0.03 K/uL (0-0.2); COMPLETE YES; EOS % 1.1 %; HEMATOCRIT 46.3 % (42-52); IG% 0.4 %; LYMPH % 31.3 %; LYMPH ABS # 2.63 K/uL (1.2-3.4); MEAN CELL VOLUME 88.5 fL (80-100); MEAN CORPUSCULAR HEMOGLOBIN 30.6 pg (25-34); MEAN CORPUSCULAR HGB CONC 34.6 g/dl (32-36); MEAN PLATELET VOLUME 11.2 fL (7.4-10.4); NEUT % 54.8 %; PLATELET COUNT 188 K/uL (130-400); RED BLOOD COUNT 5.23 M/uL (4.7-6.1)
[2016-12-19 12:01] LABS: BUN/CREATININE RATIO 12.2 (10-20); CALCIUM 9.4 mg/dl (8.5-10.1); CREATININE 0.91 mg/dl (0.60-1.40)
[2017-01-05] VITALS (10 sets, daily range): BP systolic 116–154; BP diastolic 72–86; PULSE 72–90; TEMP 36.6–37.4; O2SAT 85–96; Ht 177.8 cm; Wt 80.5 kg
[~2017-01-05] VITALS: Ht 177.8 cm; Wt 80.5 kg
[~2017-01-05 06:10] MED LIST changes: -CEPH500C2 PO; -HYDR-5688 PO; -IBUP-1050 PO; +LACTATED RINGER'S 1000ML 1,000 ML IV SCH; -LIDOCAINE HCL 2% 2 ML VIAL (20MG/ML) ONE; -MIDAZOLAM HCL 1 MG/ML 2ML VIAL ONE; -ONDANSETRON INJ 2 MG/ML 2 ML VIAL ONE; -PANT40TA PO; -PROPOFOL IV EMULSION 10 MG/ML 20 ML VIAL IV ONE; -PSYL0.524 PO; -SODIUM CHLORIDE 0.9% 500ML 500 ML IV ONE
[2017-01-05] MEDS ORDERED: GLYCOPYRROLATE INJ 0.2 MG/ML VIAL ONE (07:10)
[2017-01-05] MEDS ORDERED: LIDOCAINE HCL 2% 2 ML VIAL (20MG/ML) ONE (07:10)
[2017-01-05] MEDS ORDERED: PROPOFOL IV EMULSION 10 MG/ML 20 ML VIAL IV ONE (07:10)
[2017-01-05] MEDS ORDERED: NEOSTIGMINE METHYLSULFATE 5 MG/5 ML SYR ONE (07:10)
[2017-01-05] MEDS ORDERED: MIDAZOLAM HCL 1 MG/ML 2ML VIAL ONE (07:10)
[2017-01-05] MEDS ORDERED: ROCURONIUM BROMIDE 10 MG/ML 5 ML VIAL ONE ×2 (07:10→08:59)
[2017-01-05] MEDS ORDERED: ONDANSETRON INJ 2 MG/ML 2 ML VIAL ONE (07:10)
[2017-01-05] MEDS ORDERED: DEXAMETHASONE SOD INJ 4 MG/ML VIAL ONE (07:10)
[2017-01-05] MEDS ORDERED: FENTANYL CITRATE INJ 50 MCG/1 ML 2 ML VIAL ONE ×3 (07:10→12:08)
[2017-01-05] MEDS ORDERED: BUPIVACAINE 0.5 % 5 MG/1 ML MPF 30ML VIAL ONE (07:13)
[2017-01-05] MEDS ORDERED: BACITRACIN 50000 UNIT VIAL ONE (07:13)
--- NOTE | 2017-01-05 07:36 | History and Physical ---
History & Physical Date Jan 05, 2017. History of Present Illness The patient is a 61 year old male with complaints of bulge periumbilical area with past history of bowel obstruction s/p colon resection seen in offce 1 month or so ago and wanted to proceed with surgery for incisional hernia , likely ostomy site hernia and right ing hernia asymp since last seen no change in h and p Past Medical/Surgical History Medical Problems: (1) Adhesion of abdominal wall (2) Diverticulitis (3) Hyperlipemia (4) SBO (small bowel obstruction) (5) Ventral hernia Surgical Problems: (1) S/P colon resection Additional History Hepatic Disease: No Endocrine Disorder: No Kidney Disease: No Hypertension: No Heart Disease: No Bleeding Tendencies: No Infectious Diseases: No Other: s/p colon resection for diverticular disease Allergies Coded Allergies: No Known Allergies (Verified , 01/05/17) Home Medications Scheduled Psyllium (Metamucil), 1 CAP PO PRN Physical Examination Skin: warm/dry, no rash Eyes: normal inspection, EOMI, sclerae normal ENT: normal ENT inspection, pharynx normal Head: normocephalic, atraumatic Neck: supple, no adenopathy, trachea midline Respiratory/Chest: lungs clear, normal breath sounds, no respiratory distress Cardiovascular: regular rate, rhythm, no edema, no murmur Abdomen / GI: non tender, + pertinent finding (incisional priumbilical hernia reducible, ostomy site weakness and right ing hernia) Back: normal inspection Extremities: normal inspection, normal range of motion Genitourinary - Male: normal testicles Neurologic/Psych: no motor/sensory deficits, alert, normal reflexes, oriented x 3 Diagnosis incisional hernia midline, right ing hernia(asymp) and probable hernia ostomy site Plan of Treatment laparoscopic repair midline incisional hernia possible ostomy site hernia possible right ing hernia repair possible open
[2017-01-05] MEDS ORDERED: CEFAZOLIN SOD 1 GM VIAL ONE (08:06)
[2017-01-05] MEDS ORDERED: ESMOLOL HCL 10 MG/ML 10 ML VIAL ONE (08:49)
[2017-01-05] MEDS ORDERED: ONDANSETRON INJ 2 MG/ML 2 ML VIAL IV PRN ×2 (10:30→12:15)
[2017-01-05] MEDS ORDERED: EpHEDrine SULFATE INJ 50 MG/ML AMP IV PRN (10:30)
[2017-01-05] MEDS ORDERED: NALOXONE HCL 0.4 MG/1 ML VIAL/CARP IV PRN ×2 (10:30→12:15)
[2017-01-05] MEDS ORDERED: PROMETHAZINE HCL INJ 12.5 MG in SODIUM CHLORIDE 0.9% 50ML 50 ML IV PRN (10:30)
[2017-01-05] MEDS ORDERED: LABETALOL HCL IV 5 MG/ML 20ML IV PRN (10:30)
[2017-01-05] MEDS ORDERED: ATROPINE SULFATE 0.1 MG/ML 5ML SYR IV PRN (10:30)
--- NOTE | 2017-01-05 12:03 | Medical Student: [facility] ---
Immediate Operative Summary Operative Date Jan 05, 2017. Pre-Operative Diagnosis 1. multiple incisional hernias 2. right inguinal hernia Post-Operative Diagnosis same as pre-op Procedure(s) Performed laparosopic repair of incisional hernias converted to open repair of incisional hernias w mesh and lysis of adhesions Surgeon Dr. Easton Field Ironworker Surgeon(s) Giovanna Manzo PA-C Estimated Blood Loss 150cc Findings multiple colonic and small bowel adhesions, multiple incisional hernias Specimens A) omentum B) incarcerated omentum Anesthesia general Complication(s) None Disposition Recovery Room / PACU
[2017-01-05] MEDS ORDERED: MoRPHine SULFATE 2 MG/ML CARP IV STA (12:06)
[2017-01-05] MEDS: SODIUM CHLORIDE 0.9% 1000ML 1,000 ML IV SCH (12:06)
--- NOTE | 2017-01-05 12:06 | [facility] Post Operative Brief Note ---
Immediate Operative Summary Operative Date Jan 05, 2017. Pre-Operative Diagnosis Multiple Incisional Hernias, Ostomy Hernia, Right Inguinal Hernia Post-Operative Diagnosis Multiple Incisional Hernias, Ostomy Hernia, Right Inguinal Hernia dense abdominal adhesions Procedure(s) Performed Laparoscopy and Laparotomy, Lysis of Dense Adhesions (spent 2 hours lysing of adhesions 2/3 of optime), Multiple Incisional Hernia Repairs with Compartment Separation with Marlex Mesh Surgeon Dr. Easton Rubber Goods Supervisor Surgeon(s) Giovanna Manzo PA-C Estimated Blood Loss 150 ml Findings dense abdominal adhesion converted to open procedure multiple incisional hernia Specimens Culture--Urine--jewell, sent for routine culture and sensitivity at 0820 Drains 19 fernando per stab x2
[2017-01-05] MEDS ORDERED: HYDROmorphone INJ 2 MG/ML SYR/VIAL ONE (12:09)
[2017-01-05] MEDS: LACTATED RINGER'S 1000ML 1,000 ML IV SCH ×3 (12:15→21:56)
[2017-01-05] MEDS ORDERED: MoRPHine SULFATE 1 MG/ML 50 ML PCA CASS ONE (12:21)
[2017-01-05] MEDS: HYDROmorphone INJ 1 MG/ML SYR IV PRN ×4 (12:34→12:54)
--- NOTE | 2017-01-05 13:13 | Anesthesiology Progress Note ---
Anesthesia Post Op Note Date & Time Jan 05, 2017 at 13:13 Vital Signs Pain Intensity: 4 Vital Signs Past 12 Hours Date Time Temp Pulse Resp B/P Pulse Ox O2 Delivery O2 Flow Rate FiO2 01/05/17 12:45 74 22 179/96 98 Nasal Cannula 2 01/05/17 12:35 73 24 179/96 100 Nasal Cannula 2 01/05/17 12:25 68 20 172/94 100 Mask 10 01/05/17 12:15 77 22 163/93 100 Mask 10 01/05/17 12:05 69 18 166/95 99 Mask 10 01/05/17 11:58 37.2 85 16 163/97 100 Mask 10 01/05/17 06:23 36.6 74 18 154/86 96 Room Air Notes Mental Status: alert / awake / arousable, participated in evaluation Pt Amnestic to Procedure: Yes Nausea / Vomiting: adequately controlled Pain: adequately controlled Airway Patency, RR, SpO2: stable & adequate BP & HR: stable & adequate Hydration State: stable & adequate Anesthetic Complications: no major complications apparent
[2017-01-05] MEDS ORDERED: CEFAZOLIN IV 2,000 MG/60 ML D5W IV SCH (14:00)
[2017-01-05] MEDS: MoRPHine SULFATE 1 MG/ML 50 ML PCA CASS IV PRN ×3 (14:07→23:21)
[2017-01-05 14:11] LABS: INR 1.1 (0.9-1.1); PROTHROMBIN TIME (PATIENT) 11.6 SECONDS (9.0-12.0)
--- NOTE | 2017-01-05 14:24 | OPERATIVE REPORT ---
DATE OF OPERATION: 01/05/2017 SURGEON: Dr. Easton. AMBULATORY TECHNOLOGIST: Giovanna Manzo PA-C. PREOPERATIVE DIAGNOSES: Multiple incisional hernias, right inguinal hernia, possible colostomy hernia site. POSTOPERATIVE DIAGNOSES: Multiple incisional hernias, dense abdominal adhesions, right inguinal hernia. PROCEDURES: Laparoscopy, laparotomy, dense abdominal adhesion lysis (approximately 2 hours) two-thirds of the operative time; repair of multiple incisional hernias with compartment separation and Marlex mesh onlay. SUMMARY: The patient was brought into the operating room theater. The abdomen was prepped with Betadine scrub and solution and properly draped. A Goyal catheter had been inserted. We at this point made a small incision after the abdomen was prepped with Betadine scrub and solution and properly draped. Systemic antibiotics were given. We made a small incision about an inch and a half above the midline incision, deepened through subcutaneous tissue, we were able to enter the abdominal cavity. Once we entered that, we placed a 5 mm trocar followed by CO2. We were in a pocket of adhesions. We tried to see if we could manipulate and get into a more favorable position to insert more instruments to free up these abdominal wall adhesions, but this was pretty much not possible. The patient has significant omental adhesions to the anterior abdominal wall. In multi areas we can see the small bowel adherent to the midline incision on the lower aspect. There was no window of opportunity where I could safely enter the abdomen in this case. At this point, I elected to convert it to an open procedure. We made a midline incision from above the umbilicus to below the umbilicus, deep through the subcutaneous tissue. Once we were in the subQ, we were met with multiple defects of fatty tissue into the abdominal wall hernias. It was mostly above the umbilicus and to the right. The defects were about 2 cm or so, they were incarcerated fatty tissue. At this point, once we entered the abdomen, which was basically concrete we were really unable to identify any open areas, therefore we meticulously freed the omentum, teasing it off the abdominal wall in multiple areas and the more we went on to this, more we identified that the patient had pretty much a solid abdomen with multiple areas of narrowings. At this point, since the patient had been already admitted once with a bowel obstruction, we elected at this point to consider formally completely lysis of adhesions and when we did this, it took about 2-3 hours of the operative time to free any adhesions from the ligament of Treitz down towards the pelvic area. Then, the pelvic area, the terminal ileum was stuck behind the sigmoid colon and identified the anastomosis on the sigmoid anterior was strictly adherent to that area, but it was not obstructed. The cecum was normal caliber. I elected at this point to leave this area alone afraid that we would get into the colon or sigmoid colon. A small opening in the mesentery of the terminal ileum was then oversewn with interrupted 3-0 silk suture. We ran the small bowel from the ligament of Treitz all the way to the area above-mentioned and there were no injuries identified to the small bowel and lysis of adhesion, there were no serosal lacerations. There were a few areas noted of stitching that was done before, probably along the small bowel area from previous surgery. At this point we irrigated the abdomen and checked for hemostasis and appeared satisfactory. We also inspected the patient had a small right inguinal hernia, but it was asymptomatic and given the extent of the surgery I elected to leave this alone at this time. The ostomy site which had medial arwea suspicious of hernia we could not appreciate any hernia. I positioned the NG tube into the stomach and 60 cm from the naris. I elected at this point to bring the midline fascia together, but it was a bit tight. Therefore, we made anterior rectus lysis, freed that up circumferentially enough to mobilize and bring together the linea alba easier. We continued that and ran that with #2 PDS continuous fashion. This was fairly tension free, but further reinforce it brought a sheet of Marlex mesh and I sutured it on the outer aspects of our previous compartment separation incision with a 2-0 Prolene suture. The mesh was not tense. We drained the area with two 19 Prashant drains above the Marlex mesh through stab wounds medial and lateral to the incision, attached to skin edges with 2-0 silk. The subcutaneous tissue was brought together by 2-0 Dexon continuous fashion, jaylyn applied. The procedure was tolerated well by the patient. Estimated blood loss approximately 150 mL. The patient was taken to the recovery room in good condition. I attest to the content of the Intraoperative Record and any orders documented therein. Any exceptions are noted below. [facility]
[2017-01-05] MEDS: CEFAZOLIN SOD 2000 MG in DEXTROSE 5% 50ML IV SCH ×2 (16:40→23:28)
[2017-01-05] MEDS: HEPARIN SOD 5000 UNIT/0.5 ML CARP SQ SCH (22:00)
[2017-01-06] VITALS (11 sets, daily range): BP systolic 107–144; BP diastolic 66–78; PULSE 81–100; TEMP 36.7–39.4; O2SAT 85–96
[2017-01-06] MEDS: LACTATED RINGER'S 1000ML 1,000 ML IV SCH ×3 (04:17→19:53)
[2017-01-06] MEDS: HEPARIN SOD 5000 UNIT/0.5 ML CARP SQ SCH ×3 (05:27→21:53)
--- NOTE | 2017-01-06 06:38 | Medical Student: [facility] ---
Med Student Progress Note Date of Service Jan 06, 2017. Subjective Pt evaluation today including: conversation w/ patient, physical exam, chart review, lab review Pain: 8/10 Voiding: jewell catheter in place (clear) Patient is a 61y/o M w hx of bowel obstruction s/p colon resection who presented yesterday for repair of multiple incisional hernias and right inguinal hernia. Due to multiple small bowel and colonic adhesions, laparoscopic hernia repair was converted to open hernia repair w mesh. Today, patient is doing well and has ambulated with nursing resident. NG tube is still in place but may be taken out today. Jewell catheter has been draining clear yellow urine and chest drains w serosanguinous fluid. He has no major complaints aside from pain. Review of Systems Constitutional: No chills, No fever Respiratory: No cough, No shortness of breath, No wheezing Cardiac: No chest pain, No edema Abdomen: + pain, No nausea, No vomiting Musculoskeletal: No calf pain, No swelling Objective Vital Signs Date Time Temp Pulse Resp B/P Pulse Ox O2 Delivery O2 Flow Rate FiO2 01/06/17 04:22 95 Nasal Cannula 2.0 01/06/17 04:20 89 Room Air 01/06/17 03:40 36.7 81 18 144/68 96 Room Air 01/05/17 23:31 95 Nasal Cannula 2.0 01/05/17 23:30 85 Room Air 01/05/17 23:30 Nasal Cannula 2.0 01/05/17 22:55 37.4 72 16 116/72 96 Nasal Cannula 2.0 01/05/17 19:23 36.8 90 18 122/77 96 Nasal Cannula 2.0 01/05/17 17:19 36.7 82 17 123/77 95 Nasal Cannula 2.0 01/05/17 16:11 36.8 77 17 135/83 96 Nasal Cannula 2.0 01/05/17 15:15 Nasal Cannula 2.0 01/05/17 15:09 36.9 77 17 135/80 95 Nasal Cannula 2.0 01/05/17 14:30 77 18 124/79 96 01/05/17 14:00 96 Nasal Cannula 2.0 01/05/17 14:00 96 Nasal Cannula 2.0 01/05/17 13:45 89 18 126/79 97 Nasal Cannula 2 01/05/17 13:35 79 18 129/86 97 Nasal Cannula 2 01/05/17 13:25 37.0 78 18 132/75 97 Nasal Cannula 2 01/05/17 13:15 67 16 122/77 98 Nasal Cannula 2 01/05/17 13:05 72 20 128/88 97 Nasal Cannula 2 01/05/17 12:55 69 18 130/80 97 Nasal Cannula 2 01/05/17 12:45 74 22 148/88 98 Nasal Cannula 2 01/05/17 12:35 73 24 179/96 100 Nasal Cannula 2 01/05/17 12:25 68 20 172/94 100 Mask 10 01/05/17 12:15 77 22 163/93 100 Mask 10 01/05/17 12:05 69 18 166/95 99 Mask 10 01/05/17 11:58 37.2 85 16 163/97 100 Mask 10 Physical Exam General Appearance: WD/WN, no apparent distress Eyes: bilateral eyes normal inspection ENT: hearing grossly normal Neck: supple, no adenopathy, no carotid bruits Respiratory/Chest: chest non-tender, lungs clear, normal breath sounds, no respiratory distress, no accessory muscle use Cardiovascular: regular rate, rhythm, no edema, + systolic murmur (grade 4/5) Abdomen: + abnormal bowel sounds (hypoactivex4), + tenderness Extremities: non-tender, normal inspection, no pedal edema, no calf tenderness Neurologic/Psychiatric: alert, normal mood/affect, oriented x 3 Skin: normal color, warm/dry Laboratory Results Last 24 Hours Date/Time Source Procedure Growth Status 01/05/17 08:17 Urine,Catheterized Urine Culture - Preliminary NO GROWTH - LESS THAN 1,000 COLONIES/... Resulted Test 01/05/17 13:59 Prothrombin Time 11.6 SECONDS Prothromb Time International Ratio 1.1 01/06/17 07:46 Red Blood Count 4.55, Mean Corpuscular Volume 89.7, Mean Corpuscular Hemoglobin 30.1, Mean Corpuscular Hemoglobin Concent 33.6, Mean Platelet Volume 11.6, Neutrophils (%) (Auto) 76.4, Lymphocytes (%) (Auto) 16.1, Monocytes (%) (Auto) 7.1, Eosinophils (%) (Auto) 0.1, Basophils (%) (Auto) 0.1, Neutrophils # (Auto) 6.37, Lymphocytes # (Auto) 1.34, Monocytes # (Auto) 0.59, Eosinophils # (Auto) 0.01, Basophils # (Auto) 0.01 01/06/17 07:46 Test 01/06/17 07:46 White Blood Count 8.34 K/uL (4.8-10.8) Red Blood Count 4.55 M/uL (4.7-6.1) Hemoglobin 13.7 g/dL (14.0-18.0) Hematocrit 40.8 % (42-52) Mean Corpuscular Volume 89.7 fL (80-100) Mean Corpuscular Hemoglobin 30.1 pg (25-34) Mean Corpuscular Hemoglobin Concent 33.6 g/dl (32-36) Platelet Count 160 K/uL (130-400) Mean Platelet Volume 11.6 fL (7.4-10.4) Neutrophils (%) (Auto) 76.4 % Lymphocytes (%) (Auto) 16.1 % Monocytes (%) (Auto) 7.1 % Eosinophils (%) (Auto) 0.1 % Basophils (%) (Auto) 0.1 % Neutrophils # (Auto) 6.37 K/uL (1.4-6.5) Lymphocytes # (Auto) 1.34 K/uL (1.2-3.4) Monocytes # (Auto) 0.59 K/uL (0.11-0.59) Eosinophils # (Auto) 0.01 K/uL (0-0.5) Basophils # (Auto) 0.01 K/uL (0-0.2) RDW Standard Deviation 43.9 fL (36.4-46.3) RDW Coefficient of Variation 13.4 % (11.5-14.5) Immature Granulocyte % (Auto) 0.2 % Immature Granulocyte # (Auto) 0.02 K/uL (0.00-0.02) Anion Gap 8.0 mmol/L (3-11) Est Creatinine Clear Calc Drug Dose 84.1 ml/min Estimated GFR () 100.3 Estimated GFR (Non- 86.5 BUN/Creatinine Ratio 15.2 (10-20) Calcium Level 8.5 mg/dl (8.5-10.1) 01/05/17 01/06/17 01/07/17 07:59 07:59 07:59 Intake Total 4446 ml 2043 ml Output Total 2015 ml 735 ml Balance 2431 ml 1308 ml Medications Current Inpatient Medications Medications (Trade) Dose Ordered Sig/Augustine Route Start Time Stop Time Status Last Admin Dose Admin Lactated Ringer's (Lr 1000ml) 1,000 ml @ 125 mls/hr Q8H IV 01/05/17 12:15 02/04/17 12:14 01/06/17 04:17 125 MLS/HR Heparin Sodium (Porcine) (Heparin Sq 5000 Unit/0.5ml) 5,000 unit Q8 SQ 01/05/17 22:00 02/04/17 21:59 01/06/17 05:27 5,000 UNIT Ondansetron HCl (Zofran Inj) 4 mg Q6H PRN IV 01/05/17 12:15 02/04/17 12:14 Naloxone HCl (Narcan Inj) 0.1 mg Q5M PRN IV 01/05/17 12:15 02/04/17 12:14 Morphine Sulfate 50 mg 50 mg PRN PRN IV 01/05/17 12:15 01/19/17 12:14 01/05/17 23:21 50 MG Sodium Chloride (Nss 1000ml) 1,000 ml @ 15 mls/hr Q24H IV 01/05/17 12:06 02/04/17 12:05 Oxycodone/ Acetaminophen (Percocet 5-325mg Tab) 1 tab Q4H PRN PO 01/06/17 06:15 01/20/17 06:14 Assessment and Plan Assessment and Plan: Pt is a 61y/o M who had open repair of multiple incisional hernias yesterday and is doing well today. No immediate plans for discharge. Plan: 1. Open hernia repair wound - continue to monitor CBC and vital signs for signs of infection - control pain w acetaminophen/oxycodone 1 tab q4h and morphine 50mg PRN - continue to monitor chest drains and Jewell - encourage incentive spirometry 2. DVT prophylaxis - continue to administer heparin 5,000U sq q8h - encourage ambulation Continued [facility] stay due to: inadequate oral pain control
[2017-01-06] MEDS: MoRPHine SULFATE 1 MG/ML 50 ML PCA CASS IV PRN ×4 (07:04→22:58)
[2017-01-06] MEDS: SODIUM CHLORIDE 0.9% 1000ML 1,000 ML IV SCH (07:13)
--- NOTE | 2017-01-06 07:18 | SURGERY PROGRESS NOTE ---
DATE: 01/06/2017 Vince is resting comfortably. He has had minimal abdominal pain. He is alert, coherent. Operative findings were discussed with him. He is first postoperative day status post extensive lysis of adhesions and laparoscopy converted to laparotomy with repair of multiple incisional hernias. His last vitals showed a temperature of 36.7, pulse 81, respirations 18, blood pressure 144/68, O2 sats 95 on 2 liters. I\T\O, he had 1285 urine yesterday, so far this morning it has not been recorded. He has 2 Prashant drains which have totaled about 150, it is serosanguineous. His abdomen is soft, distended as expected in postoperative period. NG drainage is minimal. At this point, we will discontinue the Goyal and discontinue the NG tube. I asked him to go slow as far as oral intake. His laboratory is pending.
[2017-01-06 08:23] LABS: BASO % 0.1 %; BASO ABS # 0.01 K/uL (0-0.2); COMPLETE YES; EOS % 0.1 %; HEMATOCRIT 40.8 % (42-52); IG% 0.2 %; LYMPH % 16.1 %; LYMPH ABS # 1.34 K/uL (1.2-3.4); MEAN CELL VOLUME 89.7 fL (80-100); MEAN CORPUSCULAR HEMOGLOBIN 30.1 pg (25-34); MEAN CORPUSCULAR HGB CONC 33.6 g/dl (32-36); MEAN PLATELET VOLUME 11.6 fL (7.4-10.4); MONO % 7.1 %; NEUT % 76.4 %; PLATELET COUNT 160 K/uL (130-400); RED BLOOD COUNT 4.55 M/uL (4.7-6.1); WHITE BLOOD COUNT 8.34 K/uL (4.8-10.8)
[2017-01-06 08:50] LABS: BUN/CREATININE RATIO 15.2 (10-20); CALCIUM 8.5 mg/dl (8.5-10.1); CREATININE 0.94 mg/dl (0.60-1.40); POTASSIUM 3.9 mmol/L (3.5-5.1)
[2017-01-06] MEDS: ACETAMINOPHEN 325 MG TAB PO PRN ×2 (13:10→23:03)
[2017-01-07] VITALS (15 sets, daily range): BP systolic 112–147; BP diastolic 67–87; PULSE 81–105; TEMP 36.7–39.2; O2SAT 90–96
[2017-01-07] MEDS: SODIUM CHLORIDE 0.9% 1000ML 1,000 ML IV SCH (03:55)
[2017-01-07] MEDS: LACTATED RINGER'S 1000ML 1,000 ML IV SCH ×3 (04:03→19:48)
[2017-01-07] MEDS: MoRPHine SULFATE 1 MG/ML 50 ML PCA CASS IV PRN ×4 (05:16→22:50)
[2017-01-07] MEDS: HEPARIN SOD 5000 UNIT/0.5 ML CARP SQ SCH ×3 (05:36→21:27)
[2017-01-07] MEDS: ACETAMINOPHEN 325 MG TAB PO PRN ×2 (07:23→23:24)
[2017-01-07 08:01] LABS: MEAN CORPUSCULAR HGB CONC 33.7 g/dl (32-36); MEAN PLATELET VOLUME 11.4 fL (7.4-10.4); PLATELET COUNT 161 K/uL (130-400)
--- NOTE | 2017-01-07 08:58 | SURGERY PROGRESS NOTE ---
DATE: 01/07/2017 DATE: 01/07/2017. Vince is 3rd postoperative day status post lysis of dense abdominal adhesions and incisional hernia repair. He states he feels better than yesterday, although he still has some abdominal discomfort when moving around as expected from the large midline incision. His last vitals this morning showed a temperature of 37.4, pulse 88, respirations 20, blood pressure 113/78. He had a few spiking temperatures yesterday. His I\T\O he had 650 of urine overnight. The abdomen is softly distended as expected. There is no localized tenderness. His Ben-Wiggins drainage from the midline incision a total of about 20 mL, it is serosanguineous. The incision itself is free of any cellulitis. He is tolerating a liquid diet, although he has not passed any gas or had a bowel movement. He denies any nausea. At this point, we will go slowly. I told him maybe another day to reactivate his GI tract due to the extensive amount of work that we had done. His lab this morning is pending. Dr. Nguyen is going to be covering today and tomorrow.
[2017-01-07 09:01] LABS: BASO % 0.1 %; BASO ABS # 0.01 K/uL (0-0.2); COMPLETE YES; EOS % 0.5 %; HEMATOCRIT 41.9 % (42-52); IG% 0.2 %; LYMPH % 13.9 %; LYMPH ABS # 1.29 K/uL (1.2-3.4); MEAN CELL VOLUME 92.7 fL (80-100); MEAN CORPUSCULAR HEMOGLOBIN 31.2 pg (25-34); MONO % 6.4 %; NEUT % 78.9 %; RED BLOOD COUNT 4.52 M/uL (4.7-6.1); WHITE BLOOD COUNT 9.29 K/uL (4.8-10.8)
[2017-01-07] MEDS ORDERED: NURSING VERBAL MED ORDER ONE (11:00)
[2017-01-07] MEDS ORDERED: ALUMINUM/MAGNESIUM SUSP 30 ML UDC PO PRN (11:30)
[2017-01-07] MEDS ORDERED: CALCIUM CARBONATE 500 MG CHEWABLE PO PRN (11:30)
[2017-01-07] MEDS ORDERED: MAGNESIUM HYDROXIDE SUSP 30 ML UDC PO PRN (11:30)
[2017-01-07] MEDS: PANTOprazole INJ 40 MG in SYRINGE 0 ML IV SCH ×2 (11:51→21:21)
[2017-01-08] MEDS: LACTATED RINGER'S 1000ML 1,000 ML IV SCH ×3 (03:39→19:22)
[2017-01-08] MEDS: HEPARIN SOD 5000 UNIT/0.5 ML CARP SQ SCH ×3 (05:42→21:32)
[2017-01-08] MEDS: MoRPHine SULFATE 1 MG/ML 50 ML PCA CASS IV PRN ×5 (05:43→23:18)
[2017-01-08 07:03] VITALS: BP 119/75; PULSE 87; TEMP 36.9; O2SAT 91
[2017-01-08] MEDS: PANTOprazole INJ 40 MG in SYRINGE 0 ML IV SCH ×2 (08:35→21:30)
[2017-01-08 08:43] LABS: BASO % 0.2 %; BASO ABS # 0.01 K/uL (0-0.2); COMPLETE YES; EOS % 1.1 %; HEMATOCRIT 37.8 % (42-52); IG% 0.5 %; LYMPH % 17.9 %; MEAN CELL VOLUME 90.6 fL (80-100); MEAN CORPUSCULAR HEMOGLOBIN 30.9 pg (25-34); MEAN CORPUSCULAR HGB CONC 34.1 g/dl (32-36); MEAN PLATELET VOLUME 10.7 fL (7.4-10.4); MONO % 7.8 %; NEUT % 72.5 %; PLATELET COUNT 148 K/uL (130-400); RED BLOOD COUNT 4.17 M/uL (4.7-6.1); WHITE BLOOD COUNT 6.16 K/uL (4.8-10.8)
--- NOTE | 2017-01-08 09:37 | Surgery Progress Note ---
Surgery Progress Note Date of Service Jan 08, 2017. Subjective Post OP Day: 4 doing "ok"...still sore/uncomfortable which is expected. small loose bm/gas early this am. pain manageable with prep person. margarita liquids. Objective Vital Signs: Date Time Temp Pulse Resp B/P Pulse Ox O2 Delivery O2 Flow Rate FiO2 01/08/17 07:30 Room Air 01/08/17 07:03 36.9 87 16 119/75 91 Room Air 01/07/17 23:15 38.7 95 18 112/67 90 Room Air 01/07/17 23:10 Room Air 01/07/17 19:47 36.8 86 01/07/17 19:19 39.2 105 18 131/81 90 Room Air 01/07/17 15:53 37.1 01/07/17 15:32 37.6 01/07/17 15:04 38.6 96 18 147/83 95 Nasal Cannula 2.0 01/07/17 15:00 Room Air 01/07/17 13:38 36.7 01/07/17 11:55 37.7 84 17 132/84 91 Room Air 01/07/17 10:56 37.1 81 16 136/87 91 Room Air 01/07/17 10:09 36.7 Physical Exam: PARAMJIT drainage (minimal/serous) General Appearance: no apparent distress Head: normocephalic Abdomen: non distended, soft Incision(s): clean, dry, intact Laboratory Results: Results Past 24 Hours Test 01/08/17 08:34 Range/Units White Blood Count 6.16 4.8-10.8 K/uL Red Blood Count 4.17 4.7-6.1 M/uL Hemoglobin 12.9 14.0-18.0 g/dL Hematocrit 37.8 42-52 % Mean Corpuscular Volume 90.6 80-100 fL Mean Corpuscular Hemoglobin 30.9 25-34 pg Mean Corpuscular Hemoglobin Concent 34.1 32-36 g/dl Platelet Count 148 130-400 K/uL Mean Platelet Volume 10.7 7.4-10.4 fL Neutrophils (%) (Auto) 72.5 % Lymphocytes (%) (Auto) 17.9 % Monocytes (%) (Auto) 7.8 % Eosinophils (%) (Auto) 1.1 % Basophils (%) (Auto) 0.2 % Neutrophils # (Auto) 4.47 1.4-6.5 K/uL Lymphocytes # (Auto) 1.10 1.2-3.4 K/uL Monocytes # (Auto) 0.48 0.11-0.59 K/uL Eosinophils # (Auto) 0.07 0-0.5 K/uL Basophils # (Auto) 0.01 0-0.2 K/uL RDW Standard Deviation 44.3 36.4-46.3 fL RDW Coefficient of Variation 13.2 11.5-14.5 % Immature Granulocyte % (Auto) 0.5 % Immature Granulocyte # (Auto) 0.03 0.00-0.02 K/uL Assessment & Plan 11/10/16 doing ok/as expected no acute issues margarita liquids. small bm but not full return to bowel fx--cont liquids for now increase activity not ready for diet or d/c yet
[2017-01-08] MEDS: SODIUM CHLORIDE 0.9% 1000ML 1,000 ML IV SCH (10:19)
[2017-01-08 13:24] VITALS: BP 110/69; PULSE 79; TEMP 36.7; O2SAT 96
[2017-01-08 15:05] VITALS: BP 122/78; PULSE 77; TEMP 36.8; O2SAT 94
[2017-01-08 19:30] VITALS: BP 126/79; PULSE 80; TEMP 37; O2SAT 91
[2017-01-08 23:23] VITALS: BP 115/78; PULSE 72; TEMP 37.2; O2SAT 90
[2017-01-09] MEDS: LACTATED RINGER'S 1000ML 1,000 ML IV SCH ×3 (03:10→19:27)
[2017-01-09 03:55] VITALS: BP 112/76; PULSE 82; TEMP 36.7; O2SAT 90
[2017-01-09] MEDS: MoRPHine SULFATE 1 MG/ML 50 ML PCA CASS IV PRN ×2 (04:00→06:53)
[2017-01-09] MEDS: HEPARIN SOD 5000 UNIT/0.5 ML CARP SQ SCH ×3 (05:50→21:54)
[2017-01-09 08:04] VITALS: BP 134/82; PULSE 78; TEMP 36.8; O2SAT 95
[2017-01-09 08:12] VITALS: O2SAT 95
[2017-01-09] MEDS: PANTOprazole INJ 40 MG in SYRINGE 0 ML IV SCH ×2 (08:58→21:54)
--- NOTE | 2017-01-09 09:08 | Surgery Progress Note ---
Surgery Progress Note Date of Service Jan 09, 2017. Subjective doing ok... a little better each day no formal bm yet margarita liquids would like a little more to eat still using heavy coil winder Objective Vital Signs: Date Time Temp Pulse Resp B/P Pulse Ox O2 Delivery O2 Flow Rate FiO2 01/09/17 08:12 95 Room Air 01/09/17 08:04 36.8 78 16 134/82 95 Room Air 01/09/17 07:40 Room Air 01/09/17 03:55 36.7 82 20 112/76 90 Room Air 01/09/17 00:20 Room Air 01/08/17 23:23 37.2 72 20 115/78 90 Nasal Cannula 3.0 01/08/17 19:30 37.0 80 18 126/79 91 Room Air 01/08/17 19:20 Room Air 01/08/17 15:41 Room Air 01/08/17 15:05 36.8 77 18 122/78 94 Room Air 01/08/17 13:24 36.7 79 16 110/69 96 Room Air General Appearance: no apparent distress Abdomen: soft, + pertinent finding (expected tenderness. large GET with no output. small get with some serous fluid. wound looks good) Extremities: normal inspection Laboratory Results: Results Past 24 Hours Test 01/09/17 08:30 Range/Units Assessment & Plan 11/11/16 doing ok/no acute problems not ready for d/c yet will advance diet slowly can remove the large GET will change to oral analgesics 11/10/16 doing ok/as expected no acute issues margarita liquids. small bm but not full return to bowel fx--cont liquids for now increase activity not ready for diet or d/c yet 11/10/16 doing ok/as expected no acute issues margarita liquids. small bm but not full return to bowel fx--cont liquids for now increase activity not ready for diet or d/c yet
[2017-01-09 09:13] LABS: BASO % 0.2 %; BASO ABS # 0.01 K/uL (0-0.2); COMPLETE YES; EOS % 3.4 %; HEMATOCRIT 41.4 % (42-52); IG% 0.5 %; LYMPH % 25.5 %; LYMPH ABS # 1.13 K/uL (1.2-3.4); MEAN CELL VOLUME 91.8 fL (80-100); MEAN CORPUSCULAR HEMOGLOBIN 30.4 pg (25-34); MEAN CORPUSCULAR HGB CONC 33.1 g/dl (32-36); MEAN PLATELET VOLUME 11.6 fL (7.4-10.4); MONO % 11.9 %; NEUT % 58.5 %; PLATELET COUNT 177 K/uL (130-400); RED BLOOD COUNT 4.51 M/uL (4.7-6.1); WHITE BLOOD COUNT 4.44 K/uL (4.8-10.8)
[2017-01-09] MEDS: OXYCODONE/ACETAMINOPHEN 5-325 TAB PO PRN ×2 (10:44→16:12)
[2017-01-09 12:06] VITALS: BP 112/80; PULSE 70; TEMP 36.3; O2SAT 95
[2017-01-09 15:45] VITALS: BP 136/87; PULSE 76; TEMP 36.6; O2SAT 94
[2017-01-09] MEDS: KETOROLAC TROMETHAMINE 30 MG/ML VIAL IV PRN ×2 (16:17→23:40)
[2017-01-09 22:54] VITALS: BP 136/81; PULSE 76; TEMP 36.7; O2SAT 94
[2017-01-10] MEDS: LACTATED RINGER'S 1000ML 1,000 ML IV SCH ×2 (03:43→13:58)
[2017-01-10] MEDS: HEPARIN SOD 5000 UNIT/0.5 ML CARP SQ SCH ×3 (06:10→21:46)
--- NOTE | 2017-01-10 06:12 | Surgery Progress Note ---
Surgery Progress Note Date of Service Jan 10, 2017. Subjective + flatus, No nausea, No vomiting awake, alert, small bm- fatigue Objective Vital Signs: Date Time Temp Pulse Resp B/P Pulse Ox O2 Delivery O2 Flow Rate FiO2 01/09/17 23:45 Room Air 01/09/17 22:54 36.7 76 18 136/81 94 Room Air 01/09/17 16:45 Room Air 01/09/17 15:45 36.6 76 19 136/87 94 Room Air 01/09/17 12:06 36.3 70 16 112/80 95 Room Air 01/09/17 08:12 95 Room Air 01/09/17 08:04 36.8 78 16 134/82 95 Room Air 01/09/17 07:40 Room Air General Appearance: no apparent distress Respiratory/Chest: no respiratory distress Abdomen: + distended (mild distention) Incision(s): intact Laboratory Results: Results Past 24 Hours Test 01/09/17 08:30 Range/Units White Blood Count 4.44 4.8-10.8 K/uL Red Blood Count 4.51 4.7-6.1 M/uL Hemoglobin 13.7 14.0-18.0 g/dL Hematocrit 41.4 42-52 % Mean Corpuscular Volume 91.8 80-100 fL Mean Corpuscular Hemoglobin 30.4 25-34 pg Mean Corpuscular Hemoglobin Concent 33.1 32-36 g/dl Platelet Count 177 130-400 K/uL Mean Platelet Volume 11.6 7.4-10.4 fL Neutrophils (%) (Auto) 58.5 % Lymphocytes (%) (Auto) 25.5 % Monocytes (%) (Auto) 11.9 % Eosinophils (%) (Auto) 3.4 % Basophils (%) (Auto) 0.2 % Neutrophils # (Auto) 2.60 1.4-6.5 K/uL Lymphocytes # (Auto) 1.13 1.2-3.4 K/uL Monocytes # (Auto) 0.53 0.11-0.59 K/uL Eosinophils # (Auto) 0.15 0-0.5 K/uL Basophils # (Auto) 0.01 0-0.2 K/uL RDW Standard Deviation 44.5 36.4-46.3 fL RDW Coefficient of Variation 13.2 11.5-14.5 % Immature Granulocyte % (Auto) 0.5 % Immature Granulocyte # (Auto) 0.02 0.00-0.02 K/uL Assessment & Plan 01/10/17- will adv to soft , low fiber diet, decrease IV as UO very good check drains , consider d/c one, had significant NAFISA- will cont supportive care
[2017-01-10] MEDS: KETOROLAC TROMETHAMINE 30 MG/ML VIAL IV PRN ×2 (06:15→21:50)
[2017-01-10 07:53] VITALS: BP 135/81; PULSE 63; TEMP 36.6; O2SAT 94
[2017-01-10 08:24] LABS: BASO % 0.2 %; BASO ABS # 0.01 K/uL (0-0.2); COMPLETE YES; EOS % 2.9 %; HEMATOCRIT 39.1 % (42-52); IG% 0.4 %; LYMPH % 18.9 %; LYMPH ABS # 0.91 K/uL (1.2-3.4); MEAN CELL VOLUME 89.1 fL (80-100); MEAN CORPUSCULAR HEMOGLOBIN 29.8 pg (25-34); MEAN CORPUSCULAR HGB CONC 33.5 g/dl (32-36); NEUT % 66.6 %; PLATELET COUNT 197 K/uL (130-400); RED BLOOD COUNT 4.39 M/uL (4.7-6.1); WHITE BLOOD COUNT 4.81 K/uL (4.8-10.8)
[2017-01-10] MEDS: PANTOprazole INJ 40 MG in SYRINGE 0 ML IV SCH ×2 (08:47→21:15)
[2017-01-10 08:48] LABS: BUN/CREATININE RATIO 15.3 (10-20); CALCIUM 8.4 mg/dl (8.5-10.1); CREATININE 0.66 mg/dl (0.60-1.40); MAGNESIUM 1.9 mg/dl (1.8-2.4); POTASSIUM 3.9 mmol/L (3.5-5.1)
[2017-01-10 08:49] LABS: PHOSPHORUS 2.6 mg/dl (2.5-4.9)
[2017-01-10] MEDS: OXYCODONE/ACETAMINOPHEN 5-325 TAB PO PRN ×3 (11:16→23:29)
[2017-01-10 15:25] VITALS: BP 143/84; PULSE 76; TEMP 36.8; O2SAT 95
[2017-01-10 23:08] VITALS: BP 135/84; PULSE 67; TEMP 36.7; O2SAT 96
[2017-01-11] MEDS: LACTATED RINGER'S 1000ML 1,000 ML IV SCH ×2 (03:04→05:36)
[2017-01-11] MEDS: HEPARIN SOD 5000 UNIT/0.5 ML CARP SQ SCH ×3 (05:34→21:36)
[2017-01-11] MEDS: OXYCODONE/ACETAMINOPHEN 5-325 TAB PO PRN ×4 (05:35→23:59)
--- NOTE | 2017-01-11 06:28 | Surgery Progress Note ---
Surgery Progress Note Date of Service Jan 11, 2017. Subjective No nausea, No vomiting feeling better, positive bms Objective Vital Signs: Date Time Temp Pulse Resp B/P Pulse Ox O2 Delivery O2 Flow Rate FiO2 01/10/17 23:30 Room Air 01/10/17 23:08 36.7 67 18 135/84 96 Room Air 01/10/17 15:40 Room Air 01/10/17 15:25 36.8 76 18 143/84 95 Room Air 01/10/17 08:08 Room Air 01/10/17 07:53 36.6 63 18 135/81 94 Room Air General Appearance: no apparent distress Respiratory/Chest: no respiratory distress Abdomen: normal bowel sounds, + distended Incision(s): drainage (minimal- expected) Laboratory Results: Results Past 24 Hours Test 01/10/17 07:28 Range/Units White Blood Count 4.81 4.8-10.8 K/uL Red Blood Count 4.39 4.7-6.1 M/uL Hemoglobin 13.1 14.0-18.0 g/dL Hematocrit 39.1 42-52 % Mean Corpuscular Volume 89.1 80-100 fL Mean Corpuscular Hemoglobin 29.8 25-34 pg Mean Corpuscular Hemoglobin Concent 33.5 32-36 g/dl Platelet Count 197 130-400 K/uL Mean Platelet Volume 11.0 7.4-10.4 fL Neutrophils (%) (Auto) 66.6 % Lymphocytes (%) (Auto) 18.9 % Monocytes (%) (Auto) 11.0 % Eosinophils (%) (Auto) 2.9 % Basophils (%) (Auto) 0.2 % Neutrophils # (Auto) 3.20 1.4-6.5 K/uL Lymphocytes # (Auto) 0.91 1.2-3.4 K/uL Monocytes # (Auto) 0.53 0.11-0.59 K/uL Eosinophils # (Auto) 0.14 0-0.5 K/uL Basophils # (Auto) 0.01 0-0.2 K/uL RDW Standard Deviation 42.3 36.4-46.3 fL RDW Coefficient of Variation 13.0 11.5-14.5 % Immature Granulocyte % (Auto) 0.4 % Immature Granulocyte # (Auto) 0.02 0.00-0.02 K/uL Sodium Level 141 136-145 mmol/L Potassium Level 3.9 3.5-5.1 mmol/L Chloride Level 105 98-107 mmol/L Carbon Dioxide Level 28 21-32 mmol/L Anion Gap 8.0 3-11 mmol/L Blood Urea Nitrogen 10 7-18 mg/dl Creatinine 0.66 0.60-1.40 mg/dl Est Creatinine Clear Calc Drug Dose 119.8 ml/min Estimated GFR () 120.1 Estimated GFR (Non- 103.6 BUN/Creatinine Ratio 15.3 10-20 Random Glucose 85 70-99 mg/dl Calcium Level 8.4 8.5-10.1 mg/dl Phosphorus Level 2.6 2.5-4.9 mg/dl Magnesium Level 1.9 1.8-2.4 mg/dl Assessment & Plan 01/11/17- doing well for extensive surgery- will stop IV- cont supportive car today and plan d/c tomorrow. Low fiber diet. leave drain for now 01/10/17- will adv to soft , low fiber diet, decrease IV as UO very good check drains , consider d/c one, had significant NAFISA- will cont supportive care 01/10/17- will adv to soft , low fiber diet, decrease IV as UO very good check drains , consider d/c one, had significant NAFISA- will cont supportive care
[2017-01-11 07:24] VITALS: BP 130/80; PULSE 64; TEMP 36.5; O2SAT 95
[2017-01-11] MEDS: PANTOprazole INJ 40 MG in SYRINGE 0 ML IV SCH ×2 (08:40→21:36)
[2017-01-11 15:22] VITALS: BP 131/77; PULSE 59; TEMP 36.6; O2SAT 95
[2017-01-11 23:44] VITALS: BP 117/74; PULSE 65; TEMP 36.5; O2SAT 96
[2017-01-12] MEDS: HEPARIN SOD 5000 UNIT/0.5 ML CARP SQ SCH (05:42)
[2017-01-12] MEDS ORDERED: CEPH500C2 PO (07:03)
[2017-01-12] MEDS ORDERED: HYDR-5688 PO (07:03)
--- NOTE | 2017-01-12 07:13 | Discharge Instructions ---
Discharge Instructions Date of Service Jan 12, 2017. Admission Reason for Admission: Multiple Incisional Hernia, Right Inguinal Hernia Discharge Discharge Diagnosis / Problem: incisional hernia, bowel obstruction, adhesions Discharge Goals Goal(s): Decrease discomfort, Improve function, Improve disease control Activity Recommendations Activity Limitations: as noted below Lifting Limitations: no more than 10 pounds Exercise/Sports Limitations: until after follow-up appointment May Resume Sexual Activity: after follow-up appointment Shower/Bathe: tomorrow (may shower) Driving or Machine Use: 1 week SPECIAL CARE INSTRUCTIONS: * Cover incisions and change daily for comfort/drainage. * May use ibuprofen for pain as tolerated. * Expect some swelling and bruising. Call your doctor if: * Temperature above 101 degrees * Pain not relieved by pain medicine ordered * There is increased drainage or redness from any incision * You have any unanswered questions or concerns [phone]. FOLLOW UP VISIT: If not already scheduled, please call the office for a follow-up visit. as scheduled OFFICE PHONE NUMBER: Dr. Vidal Office . Current Hospital Diet Patient's current hospital diet: Low Fiber Diet Discharge Diet Recommended Diet: Low Fiber Diet Procedures Procedures Performed: Laparoscopy and Laparotomy, Lysis of Dense Adhesions (spent 2 hours lysing of adhesions 2/3 of optime), Multiple Incisional Hernia Repairs with Compartment Separation with Marlex Mesh Pending Studies Studies pending at discharge: no Medical Emergencies . Who to Call and When: Medical Emergencies: If at any time you feel your situation is an emergency, please call 911 immediately. . Non-Emergent Contact Non-Emergency issues call your: Surgeon . "Provider Documentation" section prepared by Abraham Vidal. VTE Core Measure Inpt VTE Proph given/why not?: Unfractionated heparin SQ, SCD's
[2017-01-12 07:15] VITALS: BP 147/91; PULSE 76; TEMP 36.7; O2SAT 95
--- NOTE | 2017-01-12 07:17 | Surgery Progress Note ---
Surgery Progress Note Date of Service Jan 12, 2017. Subjective + bowel movement, + feeling well, No nausea, No vomiting Objective Vital Signs: Date Time Temp Pulse Resp B/P Pulse Ox O2 Delivery O2 Flow Rate FiO2 01/11/17 23:53 Room Air 01/11/17 23:44 36.5 65 18 117/74 96 Room Air 01/11/17 16:15 Room Air 01/11/17 15:22 36.6 59 18 131/77 95 Room Air 01/11/17 07:59 Room Air 01/11/17 07:24 36.5 64 16 130/80 95 Room Air General Appearance: no apparent distress Respiratory/Chest: no respiratory distress Abdomen: + distended (softer, good bowel sounds) Incision(s): intact Assessment & Plan 01/12/17- doing well- wants to go home- tolerating diet, good bowel function will d/c drain- d/c home- close f/u in office 01/11/17- doing well for extensive surgery- will stop IV- cont supportive car today and plan d/c tomorrow. Low fiber diet. leave drain for now 01/10/17- will adv to soft , low fiber diet, decrease IV as UO very good check drains , consider d/c one, had significant NAFISA- will cont supportive care 01/11/17- doing well for extensive surgery- will stop IV- cont supportive car today and plan d/c tomorrow. Low fiber diet. leave drain for now 01/10/17- will adv to soft , low fiber diet, decrease IV as UO very good check drains , consider d/c one, had significant NAFISA- will cont supportive care
[2017-01-12] MEDS: PANTOprazole INJ 40 MG in SYRINGE 0 ML IV SCH (07:46)
[2017-01-12 08:05] VITALS: BP 147/91; PULSE 76; TEMP 36.7; O2SAT 95
[2017-01-12] MEDS: OXYCODONE/ACETAMINOPHEN 5-325 TAB PO PRN (10:16)
[2017-01-14] MEDS ORDERED: PSYL0.524 PO (10:58)
--- NOTE | 2017-01-20 15:25 | DISCHARGE SUMMARY ---
PRIMARY DISCHARGE DIAGNOSIS: Multiple incisional hernias. SECONDARY DISCHARGE DIAGNOSIS: History of colon resection for diverticulitis. PROCEDURE PERFORMED: Laparoscopy converted to laparotomy with lysis of dense abdominal adhesions, approximately 2 hours and repair of multiple incisional hernias with compartment separation and Marlex onlay. HOSPITAL COURSE: The patient is a 61-year-old male with a history of perforated diverticulitis, now admitted through the same day and taken to the operating room for multiple incisional hernia repairs. The procedure was not able to be completed laparoscopically was converted to open with component separation and Marlex mesh onlay. The procedure was well tolerated. He was transferred to the surgical floor. Nasogastric tube and Goyal were discontinued on postoperative day 1. By day 2, he was tolerating clear liquids. He was continuing to use [employer] ASSEMBLER on postoperative days 3 and 4. First Prashant drain was removed. He had a small bowel movement, was not passing much flatus. He was able to tolerate full liquids. Once he had a second bowel movement he was advanced to soft diet which he tolerated over the next 2 days. On postoperative day 7, he was tolerating a regular diet and oral analgesics. He had multiple bowel movements. He was stable for discharge. Second Prashant drain was removed. His abdomen was soft, incision was clean and dry. DISCHARGE INSTRUCTIONS: Discharge to home. Follow up with Dr. Eastno in the office next week. DISCHARGE MEDICATIONS: Keflex 500 mg p.o. t.i.d. x5 days and Caroleen 1-2 tablets every 6 hours as needed. May resume home Metamucil 1 tablet as needed. MTDD
== END 2017-01-12 11:15 | disposition home or self-care (01) | DRG 337 ==
LOC: ENRESERVTM → ENRESERVDT → C.ACU 06:10 → C.MSW 12:18
PROVIDERS: ADMIT Surgery; ATTEND Surgery
PROC: 0WJF4ZZ Inspection of Abdominal Wall, Percutaneous Endoscopic Approach (ICD-10-PCS; principal; 2017-01-05 08:00)
PROC: 0DN80ZZ Release Small Intestine, Open Approach (ICD-10-PCS; principal; 2017-01-05 08:00)
PROC: 0WUF0JZ Supplement Abdominal Wall with Synthetic Substitute, Open Approach (ICD-10-PCS; principal; 2017-01-05 08:00)
DX: K43.2 Incisional hernia without obstruction or gangrene (principal); K40.90 Unilateral inguinal hernia, without obstruction or gangrene, not specified as recurrent; K66.0 Peritoneal adhesions (postprocedural) (postinfection); Z87.19 Personal history of other diseases of the digestive system; Z90.49 Acquired absence of other specified parts of digestive tract; Z98.0 Intestinal bypass and anastomosis status

== ENCOUNTER 2017-01-14 18:30 | Inpatient (IN) | payer OTHER ==
[~2017-01-14] VITALS: Ht 177.8 cm; Wt 74.3 kg
[~2017-01-14 18:30] MED LIST changes: +CEPH500C2 PO; +HYDR-5688 PO; -LACTATED RINGER'S 1000ML 1,000 ML IV SCH; +PSYL0.524 PO
[2017-01-14] MEDS ORDERED: ONDANSETRON 8 MG/54 ML D5W IV STA (18:41)
[2017-01-14] MEDS ORDERED: SODIUM CHLORIDE 0.9% 1000ML 1,000 ML IV STA (18:41)
[2017-01-14] MEDS ORDERED: HYDROmorphone INJ 1 MG/ML SYR IV PRN (18:45)
[2017-01-14] MEDS ORDERED: IBUP-1050 PO (18:53)
[2017-01-14 19:16] LABS: BASO % 0.2 %; BASO ABS # 0.02 K/uL (0-0.2); COMPLETE YES; EOS % 0.8 %; HEMATOCRIT 44.9 % (42-52); IG% 1.4 %; LYMPH % 13.6 %; LYMPH ABS # 1.55 K/uL (1.2-3.4); MEAN CELL VOLUME 87.5 fL (80-100); MEAN CORPUSCULAR HEMOGLOBIN 30.4 pg (25-34); MEAN CORPUSCULAR HGB CONC 34.7 g/dl (32-36); MEAN PLATELET VOLUME 10.7 fL (7.4-10.4); MONO % 5.5 %; NEUT % 78.5 %; PLATELET COUNT 293 K/uL (130-400); RED BLOOD COUNT 5.13 M/uL (4.7-6.1); WHITE BLOOD COUNT 11.37 K/uL (4.8-10.8)
[2017-01-14 19:35] LABS: BUN/CREATININE RATIO 11.4 (10-20); CALCIUM 9.3 mg/dl (8.5-10.1); CREATININE 0.82 mg/dl (0.60-1.40)
[2017-01-14] MEDS ORDERED: KETOROLAC TROMETHAMINE 30 MG/ML VIAL IV STA (19:36)
--- NOTE | 2017-01-14 19:43 | DIAGNOSTIC IMAGING REPORT ---
CT SCAN OF THE ABDOMEN AND PELVIS WITHOUT IV CONTRAST CLINICAL HISTORY: Generalized abdominal pain. Vomiting. COMPARISON STUDY: Abdominal CT dated 10/24/2016. TECHNIQUE: CT scan of the abdomen and pelvis is performed from the lung bases to the proximal femora. Images are reviewed in the axial, sagittal, and coronal planes. IV contrast was not administered for this examination as per the referring clinician. Note that the examination was performed in significantly suboptimal fashion without oral and IV contrast. Automated dose control exposure was utilized. CT DOSE: 377.00 mGy.cm FINDINGS: Lung bases: The heart is normal in size and without pericardial effusion. The aortic valve leaflets are calcified. There are trace pleural effusions with bibasilar atelectasis. Emphysematous changes suspected. Liver: The unenhanced liver is top normal in size and demonstrates diffusely diminished attenuation consistent with hepatic steatosis. Fatty sparing is seen adjacent to gallbladder fossa. There is no intrahepatic biliary ductal dilatation. Gallbladder: Unremarkable. Spleen: Normal in size and attenuation. Pancreas: Unremarkable. Adrenal glands: Unremarkable. Kidneys: The unenhanced kidneys demonstrate cortical atrophy and are without hydronephrosis. There are no renal calculi identified. There is no evidence of contour deforming renal mass lesion. Abdominal vasculature: There is evidence carotid calcification and ectasia of the abdominal aorta. Stomach and bowel: There is a tiny hiatal hernia. The stomach and proximal small bowel loops are distended and fluid-filled. Small bowel loops measure up to 4.0 cm in length. A transition point is suggested in the left lower quadrant on image #[id number]. The distal small bowel is decompressed and appearance is consistent with a small bowel obstruction. No focally thick walled bowel loops are identified. There is no pneumatosis intestinalis or portal venous gas. The duodenum is normal in configuration. There is a small duodenal diverticulum. There is mild colonic diverticulosis without CT evidence of acute diverticulitis. The colon is relatively decompressed. The cecum is located in the midline pelvis. Several small bowel loops are matted along the ventral abdominal wall, likely related to adhesions. The appendix is not visualized. Peritoneum: There is a small volume of interloop fluid hemipelvis. No intraperitoneal free air is seen. There is a midline surgical scar and skin clips. A fat-containing ventral hernia is seen on image #258. Lymphadenopathy: None. Pelvic viscera: The bladder, prostate, and seminal vesicles are normal as visualized. There is a small fat-containing right inguinal hernia. Skeletal structures: No lytic or blastic lesions are seen. There is mild lumbosacral spondylosis. IMPRESSION: 1. Significantly suboptimal examination without oral and IV contrast. 2. Findings are consistent with a small bowel obstruction. A transition point is identified in the left lower quadrant and this is likely on the basis of adhesions. 3. There is interloop fluid seen around small bowel loops in the pelvis. No intraperitoneal free air is identified. No focally thick walled bowel loops, pneumatosis intestinalis, or portal venous gas is seen. 4. Mild colonic diverticulosis without CT evidence of acute diverticulitis. 5. Hepatic steatosis. 6. Trace pleural effusions and dependent atelectasis. 7. Several small bowel loops appear matted along the ventral abdominal wall, likely related to adhesions. 8. Additional findings as above. Electronically signed by: Waldemar Perez M.D. 01/14/2017 7:41 PM Dictated Date/Time: 01/14/2017 7:28 PM
[2017-01-14] MEDS ORDERED: ACETAMINOPHEN IV 100 ML IV PRN (20:30)
[2017-01-14] MEDS ORDERED: HYDROmorphone INJ 0.5 MG/0.5 ML SYR IV PRN (20:30)
--- NOTE | 2017-01-14 20:49 | History and Physical ---
History & Physical Date & Time of Service: Jan 14, 2017 at 20:38 Chief Complaint: Vomiting, Primary Care Physician: Octavio Dee M.D. History of Present Illness Source: patient This is a 61 year old male who presents to the ED with complaints of vomiting that began today. He has had two episodes of bilious emesis. He is 10 days out from an extensive ex lap and NAFISA with repair of a complex incisional hernia with component seperation. The patient states that he was fine yesterday with normal bowel movements and passing gas. Today, the patient started to have abdominal pain, diaphoresis, nausea, and chills. He then began to vomit. He states that he has not had a bowel movement today and has not been passing much gas. Patient denies fevers, chills, chest pain, melena, hematochezia, urinary symptoms, or other complaints. A CT scan is consistent with SBO or possible post -op ileus. Past Medical/Surgical History Medical Problems: (1) Diverticulitis Status: Resolved Surgical Problems: (1) S/P colon resection Status: Resolved (2) Ex lap with NAFISA and hernia repair Family History Blood clots Kidney disease Kidney stones Social History Smoking Status: Never Smoker Smokeless Tobacco Use: No Alcohol Use: socially Drug Use: none Marital Status: Housing status: lives with family Occupational Status: employed Multi-Drug Resistant Organisms History of MDRO: No Allergies Coded Allergies: No Known Allergies (Verified , 01/05/17) Home Medications Scheduled Cephalexin Monohydrate (Keflex), 500 MG PO TID Scheduled PRN Hydrocodone/Acetaminophen 5MG/325MG ([place] 5MG/325MG), 1-2 TABLET PO q 6 hrs PRN for Pain Ibuprofen (Advil), 800 MG PO UD PRN for Pain or Fever Psyllium (Metamucil), 1 CAP PO UD PRN for Constipation Review of Systems Constitutional: No chills, No fever Eyes: No discharge, No redness ENT: No hearing loss, No sore throat, No trouble swallowing Respiratory: No cough, No shortness of breath, No sputum Cardiovascular: No chest pain, No edema, No palpitations Abdomen: + nausea, + pain, + vomiting, No GI bleeding, No constipation, No diarrhea Musculoskeletal: No joint pain, No swelling Genitourinary - Male: No dysuria, No hematuria, No urinary hesitancy Neurologic: No paralysis, No weakness Psychiatric: No anxiety, No depression symptoms Endocrine: No excessive urination, No fatigue Hematologic / Lymphatic: No abnormal bleeding/bruising, No swollen lymph nodes Integumentary: No color change, No itch, No new/changing skin lesions, No rash Allergic / Immunologic: No environmental allergies, No food allergies Physical Exam Vital Signs Date Time Temp Pulse Resp B/P Pulse Ox O2 Delivery O2 Flow Rate FiO2 01/14/17 19:08 88 01/14/17 18:53 36.7 108 18 141/93 94 Room Air General Appearance: WD/WN, no apparent distress Head: normocephalic, atraumatic Eyes: normal inspection, PERRL, EOMI, sclerae normal ENT: normal ENT inspection Neck: supple, no adenopathy, trachea midline Respiratory/Chest: chest non-tender, lungs clear Cardiovascular: regular rate, rhythm, no gallop, no murmur Abdomen/GI: normal bowel sounds, soft, + tenderness (mild), + distended, + pertinent finding (incision clean and dry; no hernia recurrence appreciated) Genitourinary - Male: normal male genitalia Back: normal inspection, no CVA tenderness Extremities/Musculoskelatal: no calf tenderness, no pedal edema Neurologic/Psych: no motor/sensory deficits, alert, normal mood/affect Skin: normal color, warm/dry, no rash Lymphatic: no adenopathy Diagnostics Laboratory Results Results Past 24 Hours Test 01/14/17 19:09 Range/Units White Blood Count 11.37 4.8-10.8 K/uL Red Blood Count 5.13 4.7-6.1 M/uL Hemoglobin 15.6 14.0-18.0 g/dL Hematocrit 44.9 42-52 % Mean Corpuscular Volume 87.5 80-100 fL Mean Corpuscular Hemoglobin 30.4 25-34 pg Mean Corpuscular Hemoglobin Concent 34.7 32-36 g/dl Platelet Count 293 130-400 K/uL Mean Platelet Volume 10.7 7.4-10.4 fL Neutrophils (%) (Auto) 78.5 % Lymphocytes (%) (Auto) 13.6 % Monocytes (%) (Auto) 5.5 % Eosinophils (%) (Auto) 0.8 % Basophils (%) (Auto) 0.2 % Neutrophils # (Auto) 8.92 1.4-6.5 K/uL Lymphocytes # (Auto) 1.55 1.2-3.4 K/uL Monocytes # (Auto) 0.63 0.11-0.59 K/uL Eosinophils # (Auto) 0.09 0-0.5 K/uL Basophils # (Auto) 0.02 0-0.2 K/uL RDW Standard Deviation 41.8 36.4-46.3 fL RDW Coefficient of Variation 13.0 11.5-14.5 % Immature Granulocyte % (Auto) 1.4 % Immature Granulocyte # (Auto) 0.16 0.00-0.02 K/uL Sodium Level 140 136-145 mmol/L Potassium Level 4.0 3.5-5.1 mmol/L Chloride Level 106 98-107 mmol/L Carbon Dioxide Level 25 21-32 mmol/L Anion Gap 9.0 3-11 mmol/L Blood Urea Nitrogen 9 7-18 mg/dl Creatinine 0.82 0.60-1.40 mg/dl Est Creatinine Clear Calc Drug Dose 96.4 ml/min Estimated GFR () 109.8 Estimated GFR (Non- 94.8 BUN/Creatinine Ratio 11.4 10-20 Random Glucose 102 70-99 mg/dl Calcium Level 9.3 8.5-10.1 mg/dl Total Bilirubin 0.6 0.2-1 mg/dl Direct Bilirubin 0.2 0-0.2 mg/dl Aspartate Amino Transf (AST/SGOT) 31 15-37 U/L Alanine Aminotransferase (ALT/SGPT) 59 12-78 U/L Alkaline Phosphatase 64 45-117 U/L Total Protein 7.6 6.4-8.2 gm/dl Albumin 3.6 3.4-5.0 gm/dl Lipase 1278 73-393 U/L Diagnostic Radiology CT SCAN OF THE ABDOMEN AND PELVIS WITHOUT IV CONTRAST CLINICAL HISTORY: Generalized abdominal pain. Vomiting. COMPARISON STUDY: Abdominal CT dated 10/24/2016. TECHNIQUE: CT scan of the abdomen and pelvis is performed from the lung bases to the proximal femora. Images are reviewed in the axial, sagittal, and coronal planes. IV contrast was not administered for this examination as per the referring clinician. Note that the examination was performed in significantly suboptimal fashion without oral and IV contrast. Automated dose control exposure was utilized. CT DOSE: 377.00 mGy.cm FINDINGS: Lung bases: The heart is normal in size and without pericardial effusion. The aortic valve leaflets are calcified. There are trace pleural effusions with bibasilar atelectasis. Emphysematous changes suspected. Liver: The unenhanced liver is top normal in size and demonstrates diffusely diminished attenuation consistent with hepatic steatosis. Fatty sparing is seen adjacent to gallbladder fossa. There is no intrahepatic biliary ductal dilatation. Gallbladder: Unremarkable. Spleen: Normal in size and attenuation. Pancreas: Unremarkable. Adrenal glands: Unremarkable. Kidneys: The unenhanced kidneys demonstrate cortical atrophy and are without hydronephrosis. There are no renal calculi identified. There is no evidence of contour deforming renal mass lesion. Abdominal vasculature: There is evidence carotid calcification and ectasia of the abdominal aorta. Stomach and bowel: There is a tiny hiatal hernia. The stomach and proximal small bowel loops are distended and fluid-filled. Small bowel loops measure up to 4.0 cm in length. A transition point is suggested in the left lower quadrant on image #289. The distal small bowel is decompressed and appearance is consistent with a small bowel obstruction. No focally thick walled bowel loops are identified. There is no pneumatosis intestinalis or portal venous gas. The duodenum is normal in configuration. There is a small duodenal diverticulum. There is mild colonic diverticulosis without CT evidence of acute diverticulitis. The colon is relatively decompressed. The cecum is located in the midline pelvis. Several small bowel loops are matted along the ventral abdominal wall, likely related to adhesions. The appendix is not visualized. Peritoneum: There is a small volume of interloop fluid hemipelvis. No intraperitoneal free air is seen. There is a midline surgical scar and skin clips. A fat-containing ventral hernia is seen on image #258. Lymphadenopathy: None. Pelvic viscera: The bladder, prostate, and seminal vesicles are normal as visualized. There is a small fat-containing right inguinal hernia. Skeletal structures: No lytic or blastic lesions are seen. There is mild lumbosacral spondylosis. IMPRESSION: 1. Significantly suboptimal examination without oral and IV contrast. 2. Findings are consistent with a small bowel obstruction. A transition point is identified in the left lower quadrant and this is likely on the basis of adhesions. 3. There is interloop fluid seen around small bowel loops in the pelvis. No intraperitoneal free air is identified. No focally thick walled bowel loops, pneumatosis intestinalis, or portal venous gas is seen. 4. Mild colonic diverticulosis without CT evidence of acute diverticulitis. 5. Hepatic steatosis. 6. Trace pleural effusions and dependent atelectasis. 7. Several small bowel loops appear matted along the ventral abdominal wall, likely related to adhesions. 8. Additional findings as above. Electronically signed by: Waldemar Perez M.D. Impression Assessment and Plan SBO versus post-op ileus -IVF -feeling a little better without recent N/V; passing some flatus -if N/V then will need ngt -KUB in AM -limit narcotics -ambulate ASA Classification: ASA Class II Level of Care Med/Surg Resuscitation Status FULL RESUSCITATION VTE Prophylaxis VTE Risk Assessment Done? Y/N: Yes Risk Level: Low Given or contraindicated: SCD's
--- NOTE | 2017-01-14 21:20 | EMERGENCY ROOM VISIT NOTE ---
History Report prepared by Eduard: Antonio Chilel Under the Supervision of: Dr. Rei Palma M.D. First contact with patient: 18:32 Stated Complaint: VOMITING, History of Present Illness The patient is a 61 year old male who presents to the Emergency Room with complaints of vomiting that began today. The patient has had multiple episodes of emesis. The patient was seen and discharged from the Emergency Room two days ago. He had an extensive surgery that included multiple incisional hernia repairs and a right inguinal hernia repair. The patient states that he was fine yesterday with normal bowel movements and passing gas. Today, the patient started to have abdominal pain, diaphoresis, nausea, and chills. He then began to vomit. He states that he has not had a bowel movement today and has not been passing much gas. He rates the pain in his abdomen a 5/10 in severity. Patient denies LOC, headache, fevers, visual changes, neck pain, chest pain, breathing difficulties, back pain, melena, hematochezia, urinary symptoms, numbness, weakness, lymphadenopathy, rash, or other complaints. The patient has been taking his pain medications as planned. Source of History: patient Onset: today Position: other (GI) Symptom Intensity: Multiple episodes Quality: other (Emesis) Timing: intermittent Associated Symptoms: + abdominal pain, + chills, + diaphoresis, + nausea Review of Systems See HPI for pertinent positives and negatives. A total of ten systems were reviewed and were otherwise negative. Past Medical & Surgical Medical Problems: (1) Adhesion of abdominal wall (2) Diverticulitis (3) Hyperlipemia (4) Intestinal obstruction (5) SBO (small bowel obstruction) (6) Ventral hernia Surgical Problems: (1) S/P colon resection Family History Blood clots Kidney disease Kidney stones Social History Smoking Status: Never Smoker Drug Use: none Marital Status: Housing Status: lives with family Occupation Status: employed Current/Historical Medications Scheduled Cephalexin Monohydrate (Keflex), 500 MG PO TID Scheduled PRN Hydrocodone/Acetaminophen 5MG/325MG (Mcclure 5MG/325MG), 1-2 TABLET PO q 6 hrs PRN for Pain Ibuprofen (Advil), 800 MG PO UD PRN for Pain or Fever Psyllium (Metamucil), 1 CAP PO UD PRN for Constipation Allergies Coded Allergies: No Known Allergies (Verified , 3/16/17) Physical Exam Vital Signs Date Time Temp Pulse Resp B/P Pulse Ox O2 Delivery O2 Flow Rate FiO2 01/14/17 19:08 88 01/14/17 18:53 36.7 108 18 141/93 94 Room Air Physical Exam GENERAL: Awake, alert, uncomfortable appearing, in no distress HENT: Normocephalic, atraumatic. Oropharynx unremarkable. EYES: Normal conjunctiva. Sclera non-icteric. NECK: Supple. No nuchal rigidity. FROM. No JVD. RESPIRATORY: Clear to auscultation. CARDIAC: Borderline tachycardic rate, normal rhythm. Extremities warm and well perfused. Pulses equal. ABDOMEN: Soft, non-distended. RLQ, LLQ, and midline tenderness to palpation. No rebound or guarding. No masses. Surgical dressings in place. They are clean and dry. RECTAL: Deferred. MUSCULOSKELETAL: Chest examination reveals no tenderness. The back is symmetrical on inspection without obvious abnormality. There is no CVA tenderness to palpation. No joint edema. LOWER EXTREMITIES: Calves are equal size bilaterally and non-tender. No edema. No discoloration. NEURO: Normal sensorium. No sensory or motor deficits noted. SKIN: No rash or jaundice noted. Medical Decision & Procedures ER Provider Diagnostic Interpretation: X ray results as stated below per my interpretation and radiologist interpretation. Other radiology results as stated below per my review and radiologist interpretation CT SCAN OF THE ABDOMEN AND PELVIS WITHOUT IV CONTRAST CLINICAL HISTORY: Generalized abdominal pain. Vomiting. COMPARISON STUDY: Abdominal CT dated 10/24/2016. TECHNIQUE: CT scan of the abdomen and pelvis is performed from the lung bases to the proximal femora. Images are reviewed in the axial, sagittal, and coronal planes. IV contrast was not administered for this examination as per the referring clinician. Note that the examination was performed in significantly suboptimal fashion without oral and IV contrast. Automated dose control exposure was utilized. CT DOSE: 377.00 mGy.cm FINDINGS: Lung bases: The heart is normal in size and without pericardial effusion. The aortic valve leaflets are calcified. There are trace pleural effusions with bibasilar atelectasis. Emphysematous changes suspected. Liver: The unenhanced liver is top normal in size and demonstrates diffusely diminished attenuation consistent with hepatic steatosis. Fatty sparing is seen adjacent to gallbladder fossa. There is no intrahepatic biliary ductal dilatation. Gallbladder: Unremarkable. Spleen: Normal in size and attenuation. Pancreas: Unremarkable. Adrenal glands: Unremarkable. Kidneys: The unenhanced kidneys demonstrate cortical atrophy and are without hydronephrosis. There are no renal calculi identified. There is no evidence of contour deforming renal mass lesion. Abdominal vasculature: There is evidence carotid calcification and ectasia of the abdominal aorta. Stomach and bowel: There is a tiny hiatal hernia. The stomach and proximal small bowel loops are distended and fluid-filled. Small bowel loops measure up to 4.0 cm in length. A transition point is suggested in the left lower quadrant on image #[id number]. The distal small bowel is decompressed and appearance is consistent with a small bowel obstruction. No focally thick walled bowel loops are identified. There is no pneumatosis intestinalis or portal venous gas. The duodenum is normal in configuration. There is a small duodenal diverticulum. There is mild colonic diverticulosis without CT evidence of acute diverticulitis. The colon is relatively decompressed. The cecum is located in the midline pelvis. Several small bowel loops are matted along the ventral abdominal wall, likely related to adhesions. The appendix is not visualized. Peritoneum: There is a small volume of interloop fluid hemipelvis. No intraperitoneal free air is seen. There is a midline surgical scar and skin clips. A fat-containing ventral hernia is seen on image #258. Lymphadenopathy: None. Pelvic viscera: The bladder, prostate, and seminal vesicles are normal as visualized. There is a small fat-containing right inguinal hernia. Skeletal structures: No lytic or blastic lesions are seen. There is mild lumbosacral spondylosis. IMPRESSION: 1. Significantly suboptimal examination without oral and IV contrast. 2. Findings are consistent with a small bowel obstruction. A transition point is identified in the left lower quadrant and this is likely on the basis of adhesions. 3. There is interloop fluid seen around small bowel loops in the pelvis. No intraperitoneal free air is identified. No focally thick walled bowel loops, pneumatosis intestinalis, or portal venous gas is seen. 4. Mild colonic diverticulosis without CT evidence of acute diverticulitis. 5. Hepatic steatosis. 6. Trace pleural effusions and dependent atelectasis. 7. Several small bowel loops appear matted along the ventral abdominal wall, likely related to adhesions. 8. Additional findings as above. Electronically signed by: Waldemar Perez M.D. 01/14/2017 7:41 PM Dictated Date/Time: 01/14/2017 7:28 PM Laboratory Results 01/14/17 19:09 Red Blood Count 5.13, Mean Corpuscular Volume 87.5, Mean Corpuscular Hemoglobin 30.4, Mean Corpuscular Hemoglobin Concent 34.7, Mean Platelet Volume 10.7, Neutrophils (%) (Auto) 78.5, Lymphocytes (%) (Auto) 13.6, Monocytes (%) (Auto) 5.5, Eosinophils (%) (Auto) 0.8, Basophils (%) (Auto) 0.2, Neutrophils # (Auto) 8.92, Lymphocytes # (Auto) 1.55, Monocytes # (Auto) 0.63, Eosinophils # (Auto) 0.09, Basophils # (Auto) 0.02 01/14/17 19:09 Test 01/14/17 19:09 White Blood Count 11.37 K/uL (4.8-10.8) Red Blood Count 5.13 M/uL (4.7-6.1) Hemoglobin 15.6 g/dL (14.0-18.0) Hematocrit 44.9 % (42-52) Mean Corpuscular Volume 87.5 fL (80-100) Mean Corpuscular Hemoglobin 30.4 pg (25-34) Mean Corpuscular Hemoglobin Concent 34.7 g/dl (32-36) Platelet Count 293 K/uL (130-400) Mean Platelet Volume 10.7 fL (7.4-10.4) Neutrophils (%) (Auto) 78.5 % Lymphocytes (%) (Auto) 13.6 % Monocytes (%) (Auto) 5.5 % Eosinophils (%) (Auto) 0.8 % Basophils (%) (Auto) 0.2 % Neutrophils # (Auto) 8.92 K/uL (1.4-6.5) Lymphocytes # (Auto) 1.55 K/uL (1.2-3.4) Monocytes # (Auto) 0.63 K/uL (0.11-0.59) Eosinophils # (Auto) 0.09 K/uL (0-0.5) Basophils # (Auto) 0.02 K/uL (0-0.2) RDW Standard Deviation 41.8 fL (36.4-46.3) RDW Coefficient of Variation 13.0 % (11.5-14.5) Immature Granulocyte % (Auto) 1.4 % Immature Granulocyte # (Auto) 0.16 K/uL (0.00-0.02) Anion Gap 9.0 mmol/L (3-11) Est Creatinine Clear Calc Drug Dose 96.4 ml/min Estimated GFR () 109.8 Estimated GFR (Non- 94.8 BUN/Creatinine Ratio 11.4 (10-20) Calcium Level 9.3 mg/dl (8.5-10.1) Total Bilirubin 0.6 mg/dl (0.2-1) Direct Bilirubin 0.2 mg/dl (0-0.2) Aspartate Amino Transf (AST/SGOT) 31 U/L (15-37) Alanine Aminotransferase (ALT/SGPT) 59 U/L (12-78) Alkaline Phosphatase 64 U/L (45-117) Total Protein 7.6 gm/dl (6.4-8.2) Albumin 3.6 gm/dl (3.4-5.0) Lipase 1278 U/L (73-393) Laboratory results reviewed by me Medications Administered Medications (Trade) Dose Ordered Sig/Augustine Route Start Time Stop Time Status Last Admin Dose Admin Sodium Chloride (Nss 1000ml) 1,000 ml @ 999 mls/hr Q1H1M STAT IV 01/14/17 18:41 01/14/17 19:41 DC 01/14/17 19:08 999 MLS/HR Ondansetron HCl (Zofran 8mg Iv) 8 mg NOW STAT IV 01/14/17 18:41 01/14/17 18:43 DC 01/14/17 19:08 8 MG Ketorolac Tromethamine (Toradol Inj) 10 mg NOW STAT IV 01/14/17 19:36 01/14/17 19:38 DC 01/14/17 19:41 10 MG ED Course 1831: The patient was evaluated in room C9. A complete history and physical exam was performed. 1840: Ordered Ondansetron HCl 8 mg IV, Sodium Chloride 1000 ml @ 999 mls/hr IV 1844: Ordered Dilaudid Inj 1 mg IV 1924: The patient's nausea is better. He did, however, ask for Toradol. We need to wait until we get his chemistry function. 1935: Ordered Toradol Inj 10 mg IV 1951: Upon reexamination, the patient was resting. I discussed the test results and treatment plan with him. The patient will be evaluated by Dr. Torres - General Surgery, for further management. Medical Decision Triage Nursing notes reviewed. The patient's presentation and history were concerning for abdominal pain. Etiologies such as obstruction, ileus,appendicitis, diverticulitis, inflammatory bowel disease, renal colic, PUD, biliary pathology, pancreatitis, mesenteric ischemia, aortic pathology, infections, genitourinary, UTI, perforated viscus, appendicitis, as well as others were entertained. The patient was evaluated. He was mildly uncomfortable. He declined narcotic analgesia. He requested Toradol. He was given Zofran and normal saline. Once his renal function returned normal he was given a dose of Toradol. The patient had a mild leukocytosis. Chemistry panel was otherwise unremarkable. Lipase was moderately elevated. The patient underwent CT imaging in this was concerning for a small bowel obstruction. Consultation was made with general surgery. The patient was evaluated in the Emergency Room by Dr. Torres for further management. The chart was completed utilizing [employer] Speech voice recognition software. Grammatical errors, random word insertions, pronoun errors, and incomplete sentences are an occasional consequence of this system due to software limitations, ambient noise, and hardware issues. Any formal questions or concerns about the content, text, or information contained within the body of this dictation should be directly addressed to the physician for clarification. Consults Time Called: 1949 Consulting Physician: Dr. Torres - General Surgery Returned Call: 1951 They will be evaluating the patient for further management. Impression Primary Impression: SBO (small bowel obstruction) Additional Impression: Pancreatitis Scribe Attestation The scribe's documentation has been prepared under my direction and personally reviewed by me in its entirety. I confirm that the note above accurately reflects all work, treatment, procedures, and medical decision making performed by me. Departure Information Dispostion Being Evaluated By Surgeon Octavio Bui M.D. (PCP) Problem Qualifiers
[2017-01-14 21:45] VITALS: BP_SYST 139; BP_SYST 144; BP_DIAS 81; BP_DIAS 91; PULSE 95; TEMP 36.4; O2SAT 95; Ht 177.8 cm; Wt 74.3 kg
[2017-01-14] MEDS: METOCLOPRAMIDE HCL INJ 5 MG/ML 2 ML VIAL IV PRN (21:58)
[2017-01-14] MEDS: LACTATED RINGER'S 1000ML 1,000 ML IV SCH (22:06)
[2017-01-14 22:55] VITALS: BP 137/87; PULSE 82; TEMP 36.6; O2SAT 96
[2017-01-15] MEDS: ONDANSETRON INJ 2 MG/ML 2 ML VIAL IV PRN ×2 (02:02→13:57)
[2017-01-15] MEDS: KETOROLAC TROMETHAMINE 15 MG/ML VIAL IV PRN (02:03)
[2017-01-15] MEDS: LACTATED RINGER'S 1000ML 1,000 ML IV SCH ×3 (04:15→20:24)
[2017-01-15 06:33] LABS: URINE APPEARANCE CLEAR (CLEAR); URINE COLOR ORANGE; URINE NITRITE NEG (NEG); URINE PH 5.5 (4.5-7.5); URINE SPECIFIC GRAVITY 1.024 (1.000-1.030); UROBILINOGEN NEG (NEG); ZZUR CULT IF INDIC CLEAN CATCH NO
[2017-01-15 06:34] LABS: MANUAL MICROSCOPIC REQUIRED? NO; REVIEW REQ? NO; SULFASALICYLIC ACID NEG (NEG); URINE BILIRUBIN 1+ (NEG)
[2017-01-15 07:08] VITALS: BP 116/76; PULSE 92; TEMP 36.6; O2SAT 95
--- NOTE | 2017-01-15 08:13 | DIAGNOSTIC IMAGING REPORT ---
[facility] CLINICAL HISTORY: Ileus. COMPARISON STUDY: CT of the abdomen and pelvis January 14, 2017. FINDINGS: The tip of the nasogastric tube projects over the pylorus. Surgical jaylyn from laparotomy are noted. Several loops of mildly dilated small bowel with the left upper quadrant are again noted. IMPRESSION: 1. No significant change in mild small bowel dilatation which favors a partial small bowel obstruction. 2. Tip of nasogastric tube projects over the pylorus. Electronically signed by: Mitch Merida M.D. 01/15/2017 8:12 AM Dictated Date/Time: 01/15/2017 8:10 AM
--- NOTE | 2017-01-15 09:49 | Surgery Progress Note ---
Surgery Progress Note Date of Service Jan 15, 2017. Subjective Post OP Day: HD 2 + ambulating (will have walk today), + complaints (pain improved), + diet (NPO) , + feeling well, + flatus, No nausea, No vomiting Objective Vital Signs: Date Time Temp Pulse Resp B/P Pulse Ox O2 Delivery O2 Flow Rate FiO2 01/15/17 07:55 Room Air 01/15/17 07:08 36.6 92 20 116/76 95 Room Air 01/14/17 23:45 Room Air 01/14/17 22:55 36.6 82 18 137/87 96 Room Air 01/14/17 21:45 36.4 95 16 144/91 95 Room Air 01/14/17 21:45 36.4 95 18 139/81 95 Room Air 01/14/17 21:00 84 18 139/81 95 Room Air 01/14/17 19:08 88 01/14/17 18:53 36.7 108 18 141/93 94 Room Air Physical Exam: nasogastric drainage (bilious) General Appearance: WD/WN, no apparent distress Head: normocephalic, atraumatic Neck: supple, trachea midline Respiratory/Chest: lungs clear Cardiovascular: regular rate, rhythm Abdomen: normal bowel sounds, non tender, soft, + distended (less) Incision(s): clean, dry, intact Extremities: non-tender, no pedal edema Laboratory Results: Results Past 24 Hours Test 01/14/17 19:09 01/15/17 06:10 Range/Units White Blood Count 11.37 4.8-10.8 K/uL Red Blood Count 5.13 4.7-6.1 M/uL Hemoglobin 15.6 14.0-18.0 g/dL Hematocrit 44.9 42-52 % Mean Corpuscular Volume 87.5 80-100 fL Mean Corpuscular Hemoglobin 30.4 25-34 pg Mean Corpuscular Hemoglobin Concent 34.7 32-36 g/dl Platelet Count 293 130-400 K/uL Mean Platelet Volume 10.7 7.4-10.4 fL Neutrophils (%) (Auto) 78.5 % Lymphocytes (%) (Auto) 13.6 % Monocytes (%) (Auto) 5.5 % Eosinophils (%) (Auto) 0.8 % Basophils (%) (Auto) 0.2 % Neutrophils # (Auto) 8.92 1.4-6.5 K/uL Lymphocytes # (Auto) 1.55 1.2-3.4 K/uL Monocytes # (Auto) 0.63 0.11-0.59 K/uL Eosinophils # (Auto) 0.09 0-0.5 K/uL Basophils # (Auto) 0.02 0-0.2 K/uL RDW Standard Deviation 41.8 36.4-46.3 fL RDW Coefficient of Variation 13.0 11.5-14.5 % Immature Granulocyte % (Auto) 1.4 % Immature Granulocyte # (Auto) 0.16 0.00-0.02 K/uL Sodium Level 140 136-145 mmol/L Potassium Level 4.0 3.5-5.1 mmol/L Chloride Level 106 98-107 mmol/L Carbon Dioxide Level 25 21-32 mmol/L Anion Gap 9.0 3-11 mmol/L Blood Urea Nitrogen 9 7-18 mg/dl Creatinine 0.82 0.60-1.40 mg/dl Est Creatinine Clear Calc Drug Dose 96.4 ml/min Estimated GFR () 109.8 Estimated GFR (Non- 94.8 BUN/Creatinine Ratio 11.4 10-20 Random Glucose 102 70-99 mg/dl Calcium Level 9.3 8.5-10.1 mg/dl Total Bilirubin 0.6 0.2-1 mg/dl Direct Bilirubin 0.2 0-0.2 mg/dl Aspartate Amino Transf (AST/SGOT) 31 15-37 U/L Alanine Aminotransferase (ALT/SGPT) 59 12-78 U/L Alkaline Phosphatase 64 45-117 U/L Total Protein 7.6 6.4-8.2 gm/dl Albumin 3.6 3.4-5.0 gm/dl Lipase 1278 73-393 U/L Urine Color ORANGE Urine Appearance CLEAR CLEAR Urine pH 5.5 4.5-7.5 Urine Specific [place] 1.024 1.000-1.030 Urine Protein NEG NEG Urine Glucose (UA) NEG NEG Urine Ketones 2+ NEG Urine Occult Blood NEG NEG Urine Nitrite NEG NEG Urine Bilirubin 1+ NEG Urine Urobilinogen NEG NEG Urine Leukocyte Esterase TRACE NEG Urine WBC (Auto) 1-5 0-5 /hpf Urine RBC (Auto) 0-4 0-4 /hpf Urine Hyaline Casts (Auto) 1-5 0-5 /lpf Urine Epithelial Cells (Auto) 5-10 0-5 /lpf Urine Bacteria (Auto) NEG NEG Assessment & Plan SBO versus post-op ileus -feels better -ngt -KUB a little improved -await bowel function
[2017-01-15] MEDS: METOCLOPRAMIDE HCL INJ 5 MG/ML 2 ML VIAL IV PRN ×2 (11:56→18:45)
[2017-01-15 15:26] VITALS: BP 130/80; PULSE 89; TEMP 36.7; O2SAT 93
[2017-01-15] MEDS: ZOLPIDEM TARTRATE 5 MG TAB PO PRN (22:15)
[2017-01-15 22:55] VITALS: BP 133/74; PULSE 93; TEMP 36.8; O2SAT 97
[2017-01-16] MEDS: LACTATED RINGER'S 1000ML 1,000 ML IV SCH (04:01)
[2017-01-16] MEDS: METOCLOPRAMIDE HCL INJ 5 MG/ML 2 ML VIAL IV PRN (05:41)
--- NOTE | 2017-01-16 07:53 | SURGERY PROGRESS NOTE ---
DATE: 01/16/2017 Vince is 9th postoperative day status post extensive lysis of adhesions, repair of incisional hernia multiple with compartment separation onlay Marlex mesh. He had been discharged on the , apparently doing well at that time and was readmitted on the after having bouts of emesis. At the time of admission his vitals showed a temperature of 36.7, pulse 108, respirations 18 and blood pressure 141/93. He was fluid resuscitated , this morning showed a temperature of 36.8, pulse 92, respirations 16 and blood pressure of 113/74. A CT scan without contrast showed finding consistent with a small-bowel obstruction, a transition point was identified in the left lower quadrant and etiology of adhesion. There was no free air. He had bilateral pleural effusion and some atelectasis. Also of note on admission, his white count was 11.37 with a left shift. Chemistry showed lipase of 1278. The liver enzymes were normal. NG tube had been placed and decompressed. He did have a bowel movement this morning. In fact, he feels much better as I see him. He is in no acute distress. He has no pain. The NG tube is in place and it has dark green drainage. The abdomen is soft. Changes from the incisional hernia are noted, but there is no obvious fluid and the incision is free of any drainage. At this time, the lipase certainly could be related to the bowel obstruction, but he does have a history he tells me of something; if he is eating greasy or fried foods it goes right through him. Therefore, at this time, we will get an ultrasound of the gallbladder. The initial CAT scan that was obtained showed without contrast. I was intended to get a repeat CAT scan with contrast this morning, but since clinically he seems to be improving from what he tells me and what I can read from the notes. We will hold off at this time, repeat a KUB, get an ultrasound of the gallbladder and repeat a lipase. I will review the present CAT scan with the radiologist. We will also transfer him to my service. MEME
--- NOTE | 2017-01-16 08:12 | DIAGNOSTIC IMAGING REPORT ---
ULTRASOUND RIGHT UPPER QUADRANT ABDOMEN CLINICAL HISTORY: Elevated lipase. COMPARISON STUDY: Abdominal CT dated 01/14/2017. TECHNIQUE: Real-time, grayscale, and color flow sonography of the right upper quadrant of the abdomen was performed. Images are reviewed in the transverse and longitudinal planes. FINDINGS: Liver: The liver is enlarged and demonstrates heterogeneously increased echotexture consistent with severe hepatic steatosis. There is no intrahepatic biliary ductal dilatation. The main portal vein is patent. Gallbladder: The gallbladder is mildly distended and filled with sludge. There is no gallbladder wall thickening Or pericholecystic fluid. A sonographic Martinez's sign is reportedly absent. The common bile duct measures up to 0.5 cm in diameter. Pancreas: Not well visualized due to overlying bowel gas. Right kidney: Survey images of the right kidney demonstrate normal size and echotexture. There is no hydronephrosis. Ascites: None. IMPRESSION: 1. The gallbladder is filled with sludge. There is no convincing sonographic evidence of acute cholecystitis. 2. Hepatomegaly and severe hepatic steatosis. 3. The pancreas was not well visualized due to overlying bowel gas. Electronically signed by: Waldemar Perez M.D. 01/16/2017 8:11 AM Dictated Date/Time: 01/16/2017 8:10 AM
[2017-01-16] MEDS: NSS + 20MEQ KCL 1000ML 1,000 ML IV SCH ×3 (08:33→21:21)
[2017-01-16 08:47] VITALS: BP 130/82; PULSE 81; TEMP 36.9; O2SAT 94
[2017-01-16 08:47] LABS: BASO % 0.1 %; BASO ABS # 0.01 K/uL (0-0.2); COMPLETE YES; EOS % 0.3 %; HEMATOCRIT 41.4 % (42-52); IG% 0.3 %; LYMPH % 12.8 %; LYMPH ABS # 1.23 K/uL (1.2-3.4); MEAN CELL VOLUME 88.5 fL (80-100); MEAN CORPUSCULAR HEMOGLOBIN 29.7 pg (25-34); MEAN CORPUSCULAR HGB CONC 33.6 g/dl (32-36); MEAN PLATELET VOLUME 10.4 fL (7.4-10.4); NEUT % 75.5 %; PLATELET COUNT 315 K/uL (130-400); RED BLOOD COUNT 4.68 M/uL (4.7-6.1); WHITE BLOOD COUNT 9.58 K/uL (4.8-10.8)
--- NOTE | 2017-01-16 08:48 | DIAGNOSTIC IMAGING REPORT ---
ABDOMEN 2VIEW W/PA CHEST RTN CLINICAL HISTORY: follow up bowel obstruction COMPARISON STUDY: 01/15/2017 FINDINGS: The erect chest reveals no free air. There is no focal pulmonary consolidation. There are no pleural effusions. There is an indwelling nasogastric tube. Erect and supine views the abdomen reveal mild small bowel dilatation with a left mid abdominal spine air-fluid level. There is no colonic dilatation. IMPRESSION: Persistent mild small bowel dilatation with scattered small bowel air-fluid levels. Nasogastric tube within the stomach. Electronically signed by: Krishan Avila M.D. 01/16/2017 8:47 AM Dictated Date/Time: 01/16/2017 8:44 AM
[2017-01-16 08:52] VITALS: O2SAT 94
[2017-01-16 09:18] LABS: BUN/CREATININE RATIO 14.4 (10-20); CREATININE 0.91 mg/dl (0.60-1.40); POTASSIUM 3.7 mmol/L (3.5-5.1)
[2017-01-16] MEDS ORDERED: COUGH DROP (SUGAR FREE) LOZ 24 LOZ/1 BOX ONE (11:28)
[2017-01-16] MEDS: HEPARIN SOD 5000 UNIT/0.5 ML CARP SQ SCH ×2 (13:33→22:28)
[2017-01-16] MEDS: ONDANSETRON INJ 2 MG/ML 2 ML VIAL IV PRN (13:35)
[2017-01-16] MEDS: KETOROLAC TROMETHAMINE 15 MG/ML VIAL IV PRN (13:35)
[2017-01-16 15:30] VITALS: BP 129/82; PULSE 91; TEMP 36.8; O2SAT 96
[2017-01-16 23:30] VITALS: BP 127/80; PULSE 75; TEMP 36.8; O2SAT 95
[2017-01-17] MEDS: ZOLPIDEM TARTRATE 5 MG TAB PO PRN (01:19)
[2017-01-17] MEDS: NSS + 20MEQ KCL 1000ML 1,000 ML IV SCH ×2 (03:13→09:26)
[2017-01-17] MEDS: HEPARIN SOD 5000 UNIT/0.5 ML CARP SQ SCH ×3 (05:07→22:05)
[2017-01-17] MEDS ORDERED: TPN/PPN CONSULT PHARMACY PRN (06:42)
[2017-01-17 07:15] VITALS: BP 125/76; PULSE 74; TEMP 36.3; O2SAT 93
--- NOTE | 2017-01-17 07:22 | SURGERY PROGRESS NOTE ---
DATE: 01/17/2017 Vince is not complaining of any abdominal pain. His NG tube, overnight, put out about 300 mL dark, distal small bowel type contents, although radiographically it seemed like it was going into the duodenum yesterday. The ultrasound did show some sludge in the gallbladder; that possibly could explain his elevated enzymes, especially the lipase. At this point his abdomen is completely benign, but given this situation we will go ahead and discontinue the NG tube, just keep him on water, sips and ice chips and then start him on a PICC line for hyperalimentation. His last vitals showed a temperature of 36.8, pulse 75, respirations 18 and blood pressure 127/80. His urine output is still at 250 night, so his IV is continued at 150 at this time and we will make arrangements when the hyperalimentation is started this afternoon. Overall, he seems to be progressing well. In fact the pancreatitis that he has with the elevated lipase at this point may take a few days before it resolves and reinstitute his GI function. MEME
[2017-01-17 09:24] LABS: BASO % 0.2 %; BASO ABS # 0.02 K/uL (0-0.2); COMPLETE YES; EOS % 0.6 %; IG% 0.4 %; LYMPH % 14.7 %; LYMPH ABS # 1.39 K/uL (1.2-3.4); MEAN CELL VOLUME 90.1 fL (80-100); MEAN CORPUSCULAR HEMOGLOBIN 29.3 pg (25-34); MEAN CORPUSCULAR HGB CONC 32.6 g/dl (32-36); MEAN PLATELET VOLUME 10.8 fL (7.4-10.4); MONO % 9.9 %; NEUT % 74.2 %; PLATELET COUNT 301 K/uL (130-400); RED BLOOD COUNT 4.33 M/uL (4.7-6.1); WHITE BLOOD COUNT 9.47 K/uL (4.8-10.8)
[2017-01-17 09:56] LABS: BUN/CREATININE RATIO 20.1 (10-20); CALCIUM 8.4 mg/dl (8.5-10.1); CREATININE 0.77 mg/dl (0.60-1.40); MAGNESIUM 2.3 mg/dl (1.8-2.4); POTASSIUM 4.1 mmol/L (3.5-5.1)
[2017-01-17 10:00] LABS: PHOSPHORUS 2.6 mg/dl (2.5-4.9)
--- NOTE | 2017-01-17 11:09 | Pharmacy Progress Note ---
Parenteral Nutrition Consult Date of Service Jan 17, 2017. Scope Pharmacy was consulted on 01/17/17 to manage parenteral nutrition orders for this patient. Subjective The patient is currently on day 1 of central parenteral nutrition for small bowel obstruction. Objective Height (Feet): 5 Height (Inches): 10.00 Weight (Kilograms): 78.800 Diet: NPO Except Meds Intake & Output (Last 72 Hr): 01/15/17 01/16/17 01/17/17 07:59 07:59 07:59 Intake Total 730 ml 3136 ml 3385 ml Output Total 1880 ml 2895 ml 1550 ml Balance -1150 ml 241 ml 1835 ml Additional Fluid Losses/Gains: 300 mL of output from NG tube overnight Laboratory Data (Last 24 Hr): Test 01/17/17 09:00 Alanine Aminotransferase (ALT/SGPT) 40 U/L (12-78) Albumin 3.1 gm/dl (3.4-5.0) Alkaline Phosphatase 48 U/L (45-117) Aspartate Amino Transf (AST/SGOT) 18 U/L (15-37) Blood Urea Nitrogen 15 mg/dl (7-18) Calcium Level 8.4 mg/dl (8.5-10.1) Carbon Dioxide Level 26 mmol/L (21-32) Chloride Level 111 mmol/L (98-107) Creatinine 0.77 mg/dl (0.60-1.40) Magnesium Level 2.3 mg/dl (1.8-2.4) Phosphorus Level 2.6 mg/dl (2.5-4.9) Potassium Level 4.1 mmol/L (3.5-5.1) Random Glucose 81 mg/dl (70-99) Sodium Level 145 mmol/L (136-145) Total Bilirubin 0.7 mg/dl (0.2-1) Nutrition Assessment Please refer to the Notes section of the EMR for the most recent gold blower note. Assessment 61 year old male admitted with complaints of nausea, vomiting, and abdominal pain. Today is POD #10 s/p extensive exploratory laparotomy and lysis of adhesions with repair of incisional hernia. CT scan revealed possible small bowel obstruction or possible post op ileus. Plan For day #1 of PN administration, the following will be ordered: Macronutrients Amino acids 110 grams/day Dextrose 150 grams/day - will titrate toward goal of 325 grams as tolerated Lipids - hold lipids for now due to elevated lipase (1711) Micronutrients Combined electrolytes - omitted due to patient with elevated chloride and sodium at the upper limit of normal Potassium phosphate 21 mMol Magnesium sulfate 4.06 mEq Calcium gluconate 4.65 mEq Multivitamins 10 mL Trace Elements 1 mL Total volume 3600 mL to be infused over 24 hrs will provide 950 kcal/day. Total daily volume indicated by Dr. Easton - will reassess tomorrow. Labs, as indicated, will be ordered per protocol Pharmacy will continue to follow and adjust parenteral nutrition orders on a daily basis. Thank you for allowing us to participate in the care of this patient.
[2017-01-17] MEDS ORDERED: DEXTROSE 10% 1,000 ML IV PRN (13:01)
[2017-01-17] MEDS: ONDANSETRON INJ 2 MG/ML 2 ML VIAL IV PRN (14:35)
[2017-01-17 15:00] VITALS: BP 129/78; PULSE 69; TEMP 36.7; O2SAT 95
[2017-01-17] MEDS ORDERED: CUSTOM CENTRAL PN 1 BAG IV SCH (16:00)
[2017-01-17 22:55] VITALS: BP 122/74; PULSE 75; TEMP 36.3; O2SAT 96
[2017-01-18] MEDS: KETOROLAC TROMETHAMINE 15 MG/ML VIAL IV PRN ×3 (00:06→21:01)
[2017-01-18 06:14] LABS: BUN/CREATININE RATIO 22.9 (10-20); CALCIUM 8.4 mg/dl (8.5-10.1); CREATININE 0.78 mg/dl (0.60-1.40); MAGNESIUM 2.2 mg/dl (1.8-2.4); PHOSPHORUS 2.7 mg/dl (2.5-4.9); POTASSIUM 3.7 mmol/L (3.5-5.1)
[2017-01-18] MEDS: HEPARIN SOD 5000 UNIT/0.5 ML CARP SQ SCH ×3 (06:23→21:54)
--- NOTE | 2017-01-18 06:50 | SURGERY PROGRESS NOTE ---
DATE: 01/18/2017 Vince feels much better. He said he is getting back to normal. He denies any nausea and in fact he had a bowel movement. He virtually has no abdominal pain. He has slight discomfort when he coughs, along the incision. His last vitals showed a temperature of 36.3, pulse 75, respirations 16, blood pressure 122/74 and O2 sats 96 on room air. I\T\O; his urine output picked up yesterday after he had his IVs at 150. We started him on hyperalimentation yesterday at 150; we will cut that back to 125 today. Laboratory garcia, are pending today. His abdomen is completely benign. The jaylyn are intact. The incision is free of any redness or any cellulitis. There is just a little skin necrosis through the right edge of the staple line from where we had the previous incision. He feels great. We will discontinue the sequential compression stockings. He is on heparin. He virtually has no back pain. The lab this morning is pending. I will hold off starting enteral feed on him until we see how he does more clinically with the resolution of probably the elevated lipase. JYOTHID
[2017-01-18 07:04] VITALS: BP 118/76; PULSE 58; TEMP 36.7; O2SAT 95
[2017-01-18 07:19] LABS: BASO % 0.3 %; BASO ABS # 0.03 K/uL (0-0.2); COMPLETE YES; EOS % 1.9 %; HEMATOCRIT 37.2 % (42-52); IG% 0.4 %; LYMPH % 19.9 %; LYMPH ABS # 1.84 K/uL (1.2-3.4); MEAN CELL VOLUME 88.8 fL (80-100); MEAN CORPUSCULAR HEMOGLOBIN 29.6 pg (25-34); MEAN CORPUSCULAR HGB CONC 33.3 g/dl (32-36); MEAN PLATELET VOLUME 10.8 fL (7.4-10.4); MONO % 9.4 %; NEUT % 68.1 %; PLATELET COUNT 284 K/uL (130-400); RED BLOOD COUNT 4.19 M/uL (4.7-6.1); WHITE BLOOD COUNT 9.26 K/uL (4.8-10.8)
--- NOTE | 2017-01-18 12:14 | Pharmacy Progress Note ---
Parenteral Nutrition Consult Date of Service Jan 18, 2017. Scope Pharmacy was consulted on [DATE] to manage parenteral nutrition orders for this patient. Subjective The patient is currently on day [#] of [peripheral or central] parenteral nutrition for [INDICATION]. Objective Height (Feet): 5 Height (Inches): 10.00 Weight (Kilograms): 78.800 Diet: NPO Except Meds Vascular Access: picc Intake & Output (Last 72 Hr): 01/16/17 01/17/17 01/18/17 07:59 07:59 07:59 Intake Total 3136 ml 3385 ml 3557 ml Output Total 2895 ml 1550 ml 2400 ml Balance 241 ml 1835 ml 1157 ml Laboratory Data (Last 24 Hr): Test 01/18/17 05:00 Blood Urea Nitrogen 18 mg/dl (7-18) Calcium Level 8.4 mg/dl (8.5-10.1) Carbon Dioxide Level 28 mmol/L (21-32) Chloride Level 108 mmol/L (98-107) Creatinine 0.78 mg/dl (0.60-1.40) Magnesium Level 2.2 mg/dl (1.8-2.4) Phosphorus Level 2.7 mg/dl (2.5-4.9) Potassium Level 3.7 mmol/L (3.5-5.1) Random Glucose 97 mg/dl (70-99) Sodium Level 142 mmol/L (136-145) Triglycerides Level 147 mg/dl (0-150) Nutrition Assessment Please refer to the Notes section of the EMR for the most recent production expediter note. Plan For day #2 of PN administration, the following will be ordered: Macronutrients Amino acids 110 grams/day Dextrose: will advance to 250 grams/day - will titrate toward goal of 325 grams as tolerated Lipids - continue to hold lipids for now due to elevated lipase (though improving today 1367) Micronutrients Potassium phosphate 21 mMol Potassium Acetate 40 mEq Magnesium sulfate 4.06 mEq Calcium gluconate 4.65 mEq Multivitamins 10 mL Trace Elements 1 mL Total volume 3000mL (125cc/hr) to be infused over 24 hrs will provide 1290 kcal /day. Total daily volume indicated by Dr. Easton - will reassess tomorrow. Labs, as indicated, will be ordered per protocol Pharmacy will continue to follow and adjust parenteral nutrition orders on a daily basis. Thank you for allowing us to participate in the care of this patient.
[2017-01-18 15:08] VITALS: BP 126/78; PULSE 66; TEMP 36.9; O2SAT 95
[2017-01-18] MEDS ORDERED: CUSTOM CENTRAL PN 1 BAG IV SCH (16:00)
[2017-01-18 16:45] VITALS: BP 123/72; PULSE 78; TEMP 36.9; O2SAT 98
[2017-01-18 17:12] VITALS: BP 120/69; PULSE 67; TEMP 36.8; O2SAT 96
[2017-01-18 18:13] VITALS: BP 131/64; PULSE 62; TEMP 36.4; O2SAT 93
[2017-01-18 19:25] VITALS: BP 129/73; PULSE 70; TEMP 36.9; O2SAT 95
[2017-01-18] MEDS: ONDANSETRON INJ 2 MG/ML 2 ML VIAL IV PRN (23:48)
[2017-01-19 00:06] VITALS: BP 119/83; PULSE 64; TEMP 36.5; O2SAT 95
[2017-01-19] MEDS: ZOLPIDEM TARTRATE 5 MG TAB PO PRN ×2 (01:33→23:46)
[2017-01-19 05:12] LABS: HEMATOCRIT 37.3 % (42-52); MEAN CELL VOLUME 88.6 fL (80-100); MEAN CORPUSCULAR HEMOGLOBIN 29.5 pg (25-34); MEAN CORPUSCULAR HGB CONC 33.2 g/dl (32-36); MEAN PLATELET VOLUME 11.2 fL (7.4-10.4); PLATELET COUNT 332 K/uL (130-400); RED BLOOD COUNT 4.21 M/uL (4.7-6.1); WHITE BLOOD COUNT 7.84 K/uL (4.8-10.8)
[2017-01-19 05:40] LABS: BUN/CREATININE RATIO 23.1 (10-20); CALCIUM 8.7 mg/dl (8.5-10.1); CREATININE 0.71 mg/dl (0.60-1.40); MAGNESIUM 2.1 mg/dl (1.8-2.4); PHOSPHORUS 3.2 mg/dl (2.5-4.9); POTASSIUM 3.8 mmol/L (3.5-5.1)
[2017-01-19] MEDS: HEPARIN SOD 5000 UNIT/0.5 ML CARP SQ SCH ×3 (05:41→21:43)
[2017-01-19] MEDS ORDERED: OXYCODONE/ACETAMINOPHEN 5-325 TAB PO PRN (06:30)
--- NOTE | 2017-01-19 07:17 | SURGERY PROGRESS NOTE ---
DATE: 01/19/2017 SUBJECTIVE: Vince is resting comfortably, although he said he did not sleep much during the night. He just could not get to sleep. He had a few coughing spells and has some abdominal pain. He asked for some pain medicine at that time. He denies any nausea. He feels his stomach is rumbling pretty significantly. He had 2 bowel movements yesterday and feels like he can move his bowels again today. His last vitals showed a temperature of 36.5, pulse 64, respirations 16, blood pressure 119/83, O2 sats 95 on room air. I\T\O, he had 2450 mL urine out yesterday. His hyperalimentation was turned down to 125 an hour yesterday. His abdomen is about the same, tight where we replaced the large multiple abdominal defects. The incision looks fine. We will probably remove the jaylyn later today. There is no drainage. LABORATORY STUDIES: His BUN is 16, creatinine 0.71, potassium of 3.8, hemoglobin is 12.4, which is stable. WBC 7.84. At this point we will start him on some clear liquids. Yesterday. His lipase started to trend down. Denies any back pain, but I will repeat an acute abdomen chest x-ray 2 view to follow his gas pattern. Go slow with increasing his oral intake and will talk to pharmacy about decreasing the total fluids to 100 mL an hour.
[2017-01-19 07:37] VITALS: BP 122/71; PULSE 66; TEMP 36.4; O2SAT 96
--- NOTE | 2017-01-19 08:51 | DIAGNOSTIC IMAGING REPORT ---
PA CHEST WITH ABDOMINAL SERIES CLINICAL HISTORY: Follow-up small bowel obstruction. FINDINGS: An AP, portable, upright chest radiograph is compared to study dated 01/16/2017. A right PICC line has been placed. The tip of the catheter projects over the SVC. The heart is top normal for projection. The pulmonary vasculature is noncongested. The lungs and pleural spaces are clear. No pneumothorax is seen. The bony thorax is grossly intact. Supine and erect abdominal radiographs are compared to study dated 01/16/2017 and correlated with abdominal CT dated 01/14/2017. Midline skin clips are noted. There are mildly distended and gas-filled loops of proximal small bowel. These measure up to 4 cm in diameter. Gas is noted within portions of the right colon. No intraperitoneal free air is seen. Scattered air-fluid levels are noted on the upright view. There are no abnormal abdominal calcifications. Pelvic phleboliths are observed. There is mild lumbosacral spondylosis. The bony pelvis appears intact. IMPRESSION: 1. The lungs are clear. 2. A right PICC line is new from previous. The tip projects over the SVC. 3. Midline skin clips are noted. 4. There is mild persistent gaseous distention of the small bowel loops. This could represent a postoperative ileus or less likely persistent low-grade bowel obstruction. Ileus is favored. Clinical correlation required. Electronically signed by: Waldemar Perez M.D. 01/19/2017 8:50 AM Dictated Date/Time: 01/19/2017 8:46 AM
--- NOTE | 2017-01-19 11:20 | Pharmacy Progress Note ---
Parenteral Nutrition Consult Date of Service Jan 19, 2017. Scope Pharmacy was consulted on 01/17/17 to manage parenteral nutrition orders for this patient. Subjective The patient is currently on day 3 of central (PICC) parenteral nutrition. Objective Height (Feet): 5 Height (Inches): 10.00 Weight (Kilograms): 75.300 Diet: Clear Liquid Vascular Access: picc Intake & Output (Last 72 Hr): 01/17/17 01/18/17 01/19/17 08:00 08:00 08:00 Intake Total 3385 ml 3557 ml 2278 ml Output Total 1550 ml 2400 ml 1350 ml Balance 1835 ml 1157 ml 928 ml Laboratory Data (Last 24 Hr): Test 01/19/17 04:40 Blood Urea Nitrogen 16 mg/dl (7-18) Calcium Level 8.7 mg/dl (8.5-10.1) Carbon Dioxide Level 28 mmol/L (21-32) Chloride Level 109 mmol/L (98-107) Creatinine 0.71 mg/dl (0.60-1.40) Magnesium Level 2.1 mg/dl (1.8-2.4) Phosphorus Level 3.2 mg/dl (2.5-4.9) Potassium Level 3.8 mmol/L (3.5-5.1) Random Glucose 105 mg/dl (70-99) Sodium Level 143 mmol/L (136-145) Nutrition Assessment Please refer to the Notes section of the EMR for the most recent stoker erector and servicer note. Plan For day 3 of PN administration, the following will be ordered: Macronutrients Amino acids 110 grams/day (at goal) Dextrose 325 grams/day (at goal) Lipids: continue to omit for elevated lipase, though it continues to improve each day. Micronutrients Potassium phosphate decreased to 15 mMol Potassium acetate decreased to 30 mEq Magnesium sulfate 4.06 mEq Calcium gluconate 4.65 mEq Multivitamins 10 mL Trace Elements 1 mL Total volume 2400mL (100cc/hr) to be infused over 24 hrs will provide 1545 kcal/ day Labs, as indicated, will be ordered per protocol Pharmacy will continue to follow and adjust parenteral nutrition orders on a daily basis. Thank you for allowing us to participate in the care of this patient.
[2017-01-19 15:11] VITALS: BP 119/73; PULSE 66; TEMP 37.1; O2SAT 94
[2017-01-19] MEDS ORDERED: CUSTOM CENTRAL PN 1 BAG IV SCH (16:00)
[2017-01-19] MEDS: ONDANSETRON INJ 2 MG/ML 2 ML VIAL IV PRN ×2 (16:50→23:45)
[2017-01-19 23:01] VITALS: BP 104/68; PULSE 67; TEMP 36.8; O2SAT 95
[2017-01-20] MEDS: HEPARIN SOD 5000 UNIT/0.5 ML CARP SQ SCH ×3 (05:55→22:03)
[2017-01-20 06:12] LABS: BUN/CREATININE RATIO 19.2 (10-20); CALCIUM 8.6 mg/dl (8.5-10.1); CREATININE 0.8 mg/dl (0.60-1.40); PHOSPHORUS 3.2 mg/dl (2.5-4.9)
[2017-01-20 06:57] VITALS: BP 104/66; PULSE 66; TEMP 36.6; O2SAT 94
--- NOTE | 2017-01-20 07:42 | SURGERY PROGRESS NOTE ---
DATE: 01/20/2017 DATE: 01/20/2017. Vince continues to do well. He had a good day yesterday, had a good night's sleep. His last vitals showed showed a temperature of 36.8, pulse 67, respirations 16, blood pressure 104/68, O2 sats 95 on room air. I\T\O, he had 1 bowel movement yesterday. His urine output was 1200 yesterday. The abdomen is soft. He is not really complaining of any pain except when he coughs it pulls along the incision as would expect from the incisional hernia repair. His laboratory this morning BUN is 15, creatinine 0.80. He tolerated clear liquids yesterday. I have advised the patient at this time will increase to a low fat diet, keep him here today and see how he does. Will keep him on hyperalimentation and stop it after this present bottle infuses. If he tolerates a diet and plan to send him home tomorrow if he continues on his clinical course. I also advised him to maintain a low fiber fat diet and I think the gallbladder eventually would need to be removed. We will repeat a lipase in the morning.
[2017-01-20] MEDS: ONDANSETRON INJ 2 MG/ML 2 ML VIAL IV PRN ×2 (11:17→20:07)
[2017-01-20 15:01] VITALS: BP 115/70; PULSE 73; TEMP 37; O2SAT 94
[2017-01-20] MEDS: METOCLOPRAMIDE HCL INJ 5 MG/ML 2 ML VIAL IV PRN (16:03)
[2017-01-20 23:15] VITALS: BP 113/76; PULSE 87; TEMP 37; O2SAT 96
[2017-01-20] MEDS: ZOLPIDEM TARTRATE 5 MG TAB PO PRN (23:25)
[2017-01-21] MEDS: HEPARIN SOD 5000 UNIT/0.5 ML CARP SQ SCH ×3 (05:27→21:57)
[2017-01-21 07:35] VITALS: BP 116/76; PULSE 78; TEMP 36.8; O2SAT 96
[2017-01-21] MEDS ORDERED: NURSING VERBAL MED ORDER ONE (11:00)
[2017-01-21] MEDS ORDERED: PROMETHAZINE HCL INJ 25 MG in SODIUM CHLORIDE 0.9% 50ML 50 ML IV ONE (11:15)
--- NOTE | 2017-01-21 11:16 | PULMONARY PROGRESS NOTE ---
DATE: 01/21/2017 SUBJECTIVE: Vince did not have a good night. He said yesterday he did not eat much, he felt a little bit nauseated. He has passed gas, but he has not had a bowel movement. We had started him on a low fat diet yesterday and actually stopped his hyperalimentation. I asked him to get him back in the bed, he was sitting at the side of bed and I reexamined him. His last vitals showed a temperature of 36.8, pulse 78, respiration 16, blood pressure 116/76, O2 sats 96 on room air. He had 1300 mL of urine yesterday. His abdomen is completely benign, it is softer than I have seen in some time. The jaylyn on the incisions are still intact. There is no cellulitis. Laboratory garcia this morning, his lipase is down to 853. At this point, I discussed with him having GI see the patient because I am at a loss to why has a low fat diet may have triggered more abdominal discomfort. He was nauseated yesterday, although this morning he feels better. We will cut back on his fluids to go to full liquid diet again today and see how he does. Hopefully, when the lipase completely normalizes, his GI symptoms will improve. I am at a loss to really explain exactly if this is all related to a partial bowel obstruction or possibly that he have had some stones in the common bile duct that may have triggered pancreatitis. We will hold off GI consultation for today. Hyperalimentation was stopped yesterday.
[2017-01-21 15:05] VITALS: BP 109/73; PULSE 78; TEMP 36.8; O2SAT 96
[2017-01-21 20:00] VITALS: O2SAT 96
[2017-01-21 22:53] VITALS: BP 112/75; PULSE 74; TEMP 36.6; O2SAT 95
[2017-01-21] MEDS: ZOLPIDEM TARTRATE 5 MG TAB PO PRN (22:59)
[2017-01-22] MEDS: HEPARIN SOD 5000 UNIT/0.5 ML CARP SQ SCH ×2 (05:42→13:41)
[2017-01-22 06:14] LABS: HEMATOCRIT 41.2 % (42-52); MEAN CELL VOLUME 90.2 fL (80-100); MEAN CORPUSCULAR HEMOGLOBIN 30.4 pg (25-34); MEAN CORPUSCULAR HGB CONC 33.7 g/dl (32-36); MEAN PLATELET VOLUME 11.6 fL (7.4-10.4); PLATELET COUNT 311 K/uL (130-400); RED BLOOD COUNT 4.57 M/uL (4.7-6.1); WHITE BLOOD COUNT 8.42 K/uL (4.8-10.8)
[2017-01-22 07:35] VITALS: BP 110/73; PULSE 69; TEMP 36.2; O2SAT 95
--- NOTE | 2017-01-22 08:31 | SURGERY PROGRESS NOTE ---
DATE: 01/22/2017 Vince feels much better. He has had no problem. He has no abdominal pain. He has had no reflux symptoms. He is passing gas, but he has not had a bowel movement. Yesterday we did start him on Protonix. His abdomen is completely benign. He is virtually taken nothing for pain. At this point we will see how he does with diet and if he tolerates it and he moves his bowels, he certainly could go home today. Instructions were given to him.
[2017-01-22] MEDS ORDERED: PANTOprazole INJ 40 MG in SYRINGE 0 ML IV SCH (11:00)
[2017-01-22] MEDS ORDERED: PANT40TA PO (12:24)
--- NOTE | 2017-01-22 12:27 | Discharge Instructions ---
Discharge Instructions Date of Service Jan 22, 2017. Visit Reason for Visit: Intestinal Obstruction Discharge Discharge Diagnosis / Problem: s/p hernia repair Discharge Goals Goal(s): Decrease discomfort Activity Recommendations Activity Limitations: resume your previous activity Anesthesia . Post Anesthesia Instructions: If you have had General Anesthesia or IV Sedation: * Do not drive today. * Resume driving when surgeon permits. * Do not make important decisions or sign legal documents today. * Call surgeon for: 1. Temperature elevations greater than 101 degrees F. 2. Uncontrollable pain. 3. Excessive bleeding. 4. Persistent nausea and vomiting. 5. Medication intolerance (nausea, vomiting or rash). * For nausea and vomiting use only clear liquids such as: tea, soda, bouillon until nausea subsides, then gradually increase diet as tolerated. * If you have any concerns or questions, call your surgeon's office. If physician is unavailable and it is an emergency, call 911 or go to the nearest emergency room. . Diet Recommendations Recommended Home Diet: special diet Additional Diet Information: low fiber low fat diet Pending Studies Studies pending at discharge: no Medical Emergencies . Who to Call and When: Medical Emergencies: If at any time you feel your situation is an emergency, please call 911 immediately. . Non-Emergent Contact Non-Emergency issues call your: Surgeon . . "Provider Documentation" section prepared by João Easton.
[2017-01-22 13:35] VITALS: BP 110/73; PULSE 69; TEMP 36.2; O2SAT 95
--- NOTE | 2017-01-24 11:35 | DISCHARGE SUMMARY ---
PRIMARY DISCHARGE DIAGNOSIS: 1. Postoperative ileus, status post repair of multiple incisional hernias with compartment separation. 2. Pancreatitis. PROCEDURE PERFORMED: None. HOSPITAL COURSE: The patient is a 61-year-old male who presented to the Emergency Department 2 days after being discharged following a repair of multiple incisional hernias with compartment separation complaining of nausea, vomiting. CT showed dilated bowel and transition point consistent with bowel obstruction. His overall clinical picture from previous admission and current symptoms was more consistent with an ileus. Nasogastric tube was placed. He was admitted to surgery service by Dr. Torres who was covering over the weekend. He had 2 liters of NG output the initial day followed by another 1200 the following day. By day 3 NG output was decreasing. He had moved his bowels. The NG tube was removed. His lipase was slightly elevated at around 1200. On day 4 his lipase peaked at 1700. At that point we decided to continue to keep him n.p.o. and a PICC line was placed for TPN. A gallbladder ultrasound showed some sludge, no other inflammatory findings. By the next day, his lipase improved to 1300 and continued to slowly trend downward. He was started on clear liquids on day 6 of admission and advanced the next day. TPN was discontinued; however, overnight he became nauseated. His lipase was continuing to improve, was 800. At that time he had no further vomiting. He did have another bowel movement. On day 9 he was able to tolerate a low fat diet and had multiple bowel movements. His abdomen was soft. Incision was healing well. DISCHARGE INSTRUCTIONS: Discharge home. Follow up with Dr. Easton next week in the office. Continue low fat diet. DISCHARGE MEDICATIONS: Protonix 40 mg daily. Continue Lawrence 1-2 tablets every 6 hours as needed, Motrin 800 mg as needed, Metamucil 1 tablet daily. He can discontinue Keflex.
== END 2017-01-22 14:35 | disposition home or self-care (01) | DRG 393 ==
LOC: ENRESERVDT → ENRESERVTM → EDBD 18:30 → C.EDC 18:32 → C.MSN 20:37
PROVIDERS: ADMIT Surgery; ATTEND Surgery
DX: K91.3 Postprocedural intestinal obstruction (principal); K85.90 Acute pancreatitis without necrosis or infection, unspecified; J90 Pleural effusion, not elsewhere classified; J98.11 Atelectasis; K76.0 Fatty (change of) liver, not elsewhere classified

== ENCOUNTER → 2017-02-10 | Outpatient (CLI) | payer OTHER ==
[~2017-02-10] MED LIST changes: -CEPH500C2 PO; +IBUP-1050 PO; +PANT40TA PO
== END | disposition home or self-care (01) ==
LOC: C.LABSPEC 14:32
PROVIDERS: ATTEND Surgery
DX: K65.1 Peritoneal abscess (principal)

== ENCOUNTER 2017-10-14 21:27 | Emergency (ER) | payer OTHER ==
[~2017-10-14] VITALS: Ht 172.7 cm; Wt 78.5 kg
[~2017-10-14 21:27] MED LIST changes: -HYDR-5688 PO
[2017-10-14 21:31] VITALS: TEMP 36.6; Ht 172.7 cm; Wt 78.5 kg
[2017-10-14] MEDS ORDERED: SODIUM CHLORIDE 0.9% 1000ML 1,000 ML IV STA (21:50)
[2017-10-14] MEDS ORDERED: ONDANSETRON INJ 2 MG/ML 2 ML VIAL IV STA (21:50)
[2017-10-14] MEDS ORDERED: DICYCLOMINE HCL 10 MG/ML 2 ML AMP IM ONE (22:00)
[2017-10-14 22:25] LABS: BASO % 0.1 %; BASO ABS # 0.01 K/uL (0-0.2); EOS % 1.2 %; EOS ABS # 0.14 K/uL (0-0.5); HEMATOCRIT 46.9 % (42-52); HEMOGLOBIN 16.1 g/dL (14.0-18.0); IG# 0.04 K/uL (0.00-0.02); LYMPH % 17.1 %; LYMPH ABS # 2.02 K/uL (1.2-3.4); MEAN CELL VOLUME 91.6 fL (80-100); MEAN CORPUSCULAR HEMOGLOBIN 31.4 pg (25-34); MEAN CORPUSCULAR HGB CONC 34.3 g/dl (32-36); MEAN PLATELET VOLUME 11.3 fL (7.4-10.4); MONO % 8.7 %; MONO ABS # 1.03 K/uL (0.11-0.59); NEUT % 72.6 %; PLATELET COUNT 176 K/uL (130-400); RED CELL DISTRIBUTION WIDTH CV 12.8 % (11.5-14.5); RED CELL DISTRIBUTION WIDTH SD 42.8 fL (36.4-46.3); WHITE BLOOD COUNT 11.84 K/uL (4.8-10.8)
[2017-10-14 22:27] VITALS: O2SAT 96
[2017-10-14 22:45] LABS: CALCIUM 9.3 mg/dl (8.5-10.1); CREATININE 0.87 mg/dl (0.60-1.40); POTASSIUM 3.6 mmol/L (3.5-5.1)
[2017-10-14 22:48] LABS: PHOSPHORUS 2.5 mg/dl (2.5-4.9); TOTAL PROTEIN 7.7 gm/dl (6.4-8.2)
[2017-10-14] MEDS ORDERED: OPTIRAY 320 IV PRN (23:45)
--- NOTE | 2017-10-15 00:35 | EMERGENCY ROOM VISIT NOTE ---
History First contact with patient: 21:41 Chief Complaint: DIARRHEA Stated Complaint: DIARRHEA Nursing Triage Summary: Pt c/o abdominal pain and diarrhea since History of Present Illness The patient is a 62 year old male who presents to the Emergency Room with complaints of nausea, dehydration, diarrhea and abdominal cramping for the past 2 days. Patient had multiple episodes of diarrhea. No blood or black in it. No recent antibiotics. No well water. No sick contacts. Patient describes the abdominal pain as cramping, ranging in severity 5 out of 10 throughout the lower abdomen. It does not radiate. Nothing makes it better or worse. He has had diverticulitis before but this feels different. Patient denies chest pain, dyspnea, fever, chills, vomiting, back pain, urinary symptoms. Colonoscopy this year just showed diverticulosis. Review of Systems See HPI for pertinent positives & negatives. A total of 10 systems reviewed and were otherwise negative. Past Medical/Surgical History Medical Problems: (1) Adhesion of abdominal wall (2) Diverticulitis (3) Hyperlipemia (4) Intestinal obstruction (5) SBO (small bowel obstruction) (6) Ventral hernia Surgical Problems: (1) S/P colon resection Family History Blood clots Kidney disease Kidney stones Social History Smoking Status: Never Smoker Smokeless Tobacco Use: No Drug Use: none Marital Status: Housing Status: lives with family Occupation Status: employed Current/Historical Medications No Active Prescriptions or Reported Meds Physical Exam Vital Signs Date Time Temp Pulse Resp B/P (MAP) Pulse Ox O2 Delivery O2 Flow Rate FiO2 10/14/17 23:36 84 18 146/91 95 Room Air 10/14/17 22:27 96 Room Air 10/14/17 21:31 36.6 89 18 159/92 98 Room Air Physical Exam VITALS: Vitals are noted on the nurse's note and reviewed by myself. Vital signs stable. GENERAL: Pleasant male, in no acute distress, nondiaphoretic, well-developed well-nourished. SKIN: The skin was without rashes, erythema, edema, or bruising. There is no tenting of the skin. Capillary reflex less than 2 seconds. HEAD: Normocephalic atraumatic. EARS: External auditory canals clear, tympanic membranes pearly hahn without erythema or effusion bilaterally. EYES: Pupils equal round and reactive to light and accommodation. Conjunctivae without injection, sclerae without icterus. Extraocular movements intact. NOSE: Patent, turbinates without inflammation or discharge. MOUTH: Mucous membranes mildly dry Pharynx without erythema or exudate. Uvula midline. Airway patent. Tongue does not deviate. NECK: Supple without nuchal rigidity. No lymphadenopathy. No thyromegaly. Cervical spine is nontender. No JVD. HEART: Regular rate and rhythm LUNGS: Clear to auscultation bilaterally without wheezes, rales or rhonchi. No dullness to percussion. No retractions or accessory muscle use. ABDOMEN: Positive bowel sounds x 4. Normal tympanic percussion. Soft, tender to palpation lower abdomen, no CVA tenderness, without masses or organomegaly. Martinez sign negative. No guarding or rebound tenderness. MUSCULOSKELETAL: No muscle atrophy, erythema, or edema noted. NEURO: Patient was alert and oriented to person place and time. Normal sensation to light and sharp touch. No focal neurological deficits. Medical Decision & Procedures Laboratory Results 10/14/17 22:10 Red Blood Count 5.12, Mean Corpuscular Volume 91.6, Mean Corpuscular Hemoglobin 31.4, Mean Corpuscular Hemoglobin Concent 34.3, Mean Platelet Volume 11.3, Neutrophils (%) (Auto) 72.6, Lymphocytes (%) (Auto) 17.1, Monocytes (%) (Auto) 8.7, Eosinophils (%) (Auto) 1.2, Basophils (%) (Auto) 0.1, Neutrophils # (Auto) 8.60, Lymphocytes # (Auto) 2.02, Monocytes # (Auto) 1.03, Eosinophils # (Auto) 0.14, Basophils # (Auto) 0.01 10/14/17 22:10 Test 10/14/17 22:10 10/14/17 22:25 White Blood Count 11.84 K/uL (4.8-10.8) Red Blood Count 5.12 M/uL (4.7-6.1) Hemoglobin 16.1 g/dL (14.0-18.0) Hematocrit 46.9 % (42-52) Mean Corpuscular Volume 91.6 fL (80-100) Mean Corpuscular Hemoglobin 31.4 pg (25-34) Mean Corpuscular Hemoglobin Concent 34.3 g/dl (32-36) Platelet Count 176 K/uL (130-400) Mean Platelet Volume 11.3 fL (7.4-10.4) Neutrophils (%) (Auto) 72.6 % Lymphocytes (%) (Auto) 17.1 % Monocytes (%) (Auto) 8.7 % Eosinophils (%) (Auto) 1.2 % Basophils (%) (Auto) 0.1 % Neutrophils # (Auto) 8.60 K/uL (1.4-6.5) Lymphocytes # (Auto) 2.02 K/uL (1.2-3.4) Monocytes # (Auto) 1.03 K/uL (0.11-0.59) Eosinophils # (Auto) 0.14 K/uL (0-0.5) Basophils # (Auto) 0.01 K/uL (0-0.2) RDW Standard Deviation 42.8 fL (36.4-46.3) RDW Coefficient of Variation 12.8 % (11.5-14.5) Immature Granulocyte % (Auto) 0.3 % Immature Granulocyte # (Auto) 0.04 K/uL (0.00-0.02) Anion Gap 7.0 mmol/L (3-11) Est Creatinine Clear Calc Drug Dose 84.1 ml/min Estimated GFR () 106.5 Estimated GFR (Non- 91.9 BUN/Creatinine Ratio 11.1 (10-20) Calcium Level 9.3 mg/dl (8.5-10.1) Phosphorus Level 2.5 mg/dl (2.5-4.9) Magnesium Level 2.1 mg/dl (1.8-2.4) Total Bilirubin 0.8 mg/dl (0.2-1) Direct Bilirubin 0.2 mg/dl (0-0.2) Aspartate Amino Transf (AST/SGOT) 27 U/L (15-37) Alanine Aminotransferase (ALT/SGPT) 51 U/L (12-78) Alkaline Phosphatase 51 U/L (45-117) Total Protein 7.7 gm/dl (6.4-8.2) Albumin 4.0 gm/dl (3.4-5.0) Lipase 316 U/L (73-393) Urine Color YELLOW Urine Appearance CLEAR (CLEAR) Urine pH 5.5 (4.5-7.5) Urine Specific [place] 1.020 (1.000-1.030) Urine Protein NEG (NEG) Urine Glucose (UA) NEG (NEG) Urine Ketones NEG (NEG) Urine Occult Blood NEG (NEG) Urine Nitrite NEG (NEG) Urine Bilirubin NEG (NEG) Urine Urobilinogen NEG (NEG) Urine Leukocyte Esterase NEG (NEG) Medications Administered Medications (Trade) Dose Ordered Sig/[place] Route Start Time Stop Time Status Last Admin Dose Admin Sodium Chloride 1,000 ml @ 999 mls/hr Q1H1M STAT IV 10/14/17 21:50 10/14/17 22:50 DC 10/14/17 22:19 999 MLS/HR Dicyclomine HCl (Bentyl Inj) 20 mg NOW ONCE IM 10/14/17 22:00 10/14/17 22:01 DC 10/14/17 22:18 20 MG Ondansetron HCl (Zofran Inj) 4 mg NOW STAT IV 10/14/17 21:50 10/14/17 21:52 DC 10/14/17 22:18 4 MG ED Course Prior records/ancillary studies reviewed. Triage Nursing notes reviewed. Additional history obtained from family. The patient's history was concerning for abdominal pain with diarrhea. Differential diagnosis: Etiologies such as colitis, C. difficile, stool infection, appendicitis, diverticulitis, PUD, biliary pathology, UTI, pancreatitis, obstruction, mesenteric ischemia, aortic pathology, infections, inflammatory bowel disease, renal colic, as well as others were entertained. Physical examination findings: As above. ER treatment provided: IV fluids, Bentyl, Zofran On reassessment the patient felt better. Diagnostics interpreted by me: The labs revealed mild leukocytosis. Negative C. difficile Mild hyperglycemia Imaging studies: CT ABDOMEN & PELVIS With Contrast: Colonic wall thickening greatest at the sigmoid colon, suspicious for colitis. Colonic diverticulosis without evidence of diverticulitis. No evidence of bowel obstruction. Appendix is not seen. No right lower quadrant inflammatory changes to suggest appendicitis. Hazy generalized mesenteric fat stranding, which is nonspecific with differential including mesenteric panniculitis. Liver, gallbladder, pancreas, spleen, kidneys and adrenals are unremarkable. Small hiatal hernia. Radiologist: Kevin Mary MD Exam and history seem consistent with colitis. Patient felt much better after being medicated as above. He did not have acute abdomen on exam. He is afebrile and nontoxic. He was advised to take medications as directed, stay well-hydrated and to follow-up family care in a few days or here in the ER sooner for abdominal pain, fevers, vomiting, black or blood in the stool, worsening signs or symptoms or as needed. Patient was tolerating fluids. He states the Bentyl helped greatly. By the evaluation outlined above emergent etiologies such as appendicitis, diverticulitis, PUD, biliary pathology, UTI, pancreatitis, obstruction, mesenteric ischemia, aortic pathology, infections, inflammatory bowel disease, renal colic, as well as others were deemed relatively unlikely. The pt informed about the findings as listed above. All questions were answered and pleased with the treatment. Return instructions were outlined and the patient was discharged in stable condition. Outpatient prescription management: Enma Roberts Referral: The patient was referred back to their primary care physician for follow-up in 2 to 3 days for a recheck of the current condition. Case reviewed with my attending Medical Decision As above Medication Reconcilliation Current Medication List: was personally reviewed by me Impression Primary Impression: Colitis Departure Information Dispostion Home / Self-Care Condition GOOD Prescriptions No Active Prescriptions or Reported Meds Referrals Octavio Dee M.D. (PCP) Patient Instructions [facility] Additional Instructions Bentyl 20 m tablet every 6 hours as needed for abdominal cramping. Zofran(odansetron) tablets 4mg: Take one and allow it to dissolve in your mouth every four to six hours as needed for nausea or vomiting. Rest and drink plenty of fluids as tolerated. Slow sips of water or sports drinks are recommended instead of large amounts all at once. Continue current medications. [place] diet until the diarrhea subsides. Return to the ER for persistent vomiting, fevers, abdominal pain, chest pains, difficulty breathing, black or bloody stools, worsening of your condition, or as needed. Follow up with your primary physician in 2-3 days for a recheck of your current condition.
[2017-10-15 00:37] VITALS: BP 153/91; PULSE 65; O2SAT 97
[2017-10-15] MEDS ORDERED: ONDA4TAB10 SL (00:37)
[2017-10-15] MEDS ORDERED: DICY20TA35 PO (00:37)
[2017-10-15] MEDS ORDERED: ONDANSETRON HOME PACK 4MG OD TAB PO ONE (00:45)
[2017-10-15] MEDS ORDERED: BENTYL HOME PACK 10 MG VIAL PO ONE (00:45)
[2017-10-15] MEDS ORDERED: DICYCLOMINE HCL 10 MG CAP PO ONE (00:45)
--- NOTE | 2017-10-15 07:12 | DIAGNOSTIC IMAGING REPORT ---
CT ABD/PELVIS IV CONTRAST ONLY CLINICAL HISTORY: Lower abdominal pain. History of hernia repair with mesh in December 2016 COMPARISON STUDY: 01/14/2017 TECHNIQUE: Following the IV administration of 115 mL of Optiray-320, CT scan of the abdomen and pelvis was performed from the lung bases to the proximal femurs. Images are reviewed in the axial, sagittal, and coronal planes. IV contrast was administered without complication. A dose lowering technique was utilized adhering to the principles of ALARA. CT DOSE: 372.91 mGy.cm FINDINGS: Lower chest: There are a few small lung cysts present Liver: There is hepatic steatosis. No focal masses are visualized. Gallbladder: Unremarkable. Spleen: Normal in size and attenuation. Pancreas: Unremarkable. Adrenal glands: Unremarkable. Kidneys: There is symmetric renal cortical enhancement. The kidneys are normal in size without hydronephrosis. Bowel: There are no transition zones indicate bowel obstruction. The appendix is not visualized with certainty. There are no findings to indicate acute appendicitis. There are scattered colonic diverticula. There is no evidence of acute diverticulitis. Mild wall thickening of left colon, could be secondary to a mild colitis, or incomplete distention.. Peritoneum: There is no intraperitoneal free air or abdominal ascites. There is a ventral hernia mesh. Vasculature: There is mild ectasia of the infrarenal abdominal aorta which measures 29 mm. Adenopathy: None. Pelvic viscera: Prostate is mildly enlarged. Skeletal structures: No destructive osseous lesions are seen. IMPRESSION: 1. No evidence of bowel obstruction. No evidence of free air 2. Diverticulosis. No evidence of acute diverticulitis 3. Nonvisualization the appendix but no evidence of acute appendicitis 4. Hepatic steatosis 5. Mild wall thickening of the left colon. This could be secondary to either a mild colitis, or incomplete distention. 6. Mild prostamegaly Electronically signed by: Krishan Avila M.D. 10/15/2017 7:11 AM Dictated Date/Time: 10/15/2017 7:02 AM
== END 2017-10-15 00:54 | disposition home or self-care (01) ==
LOC: C.EDB 21:28 → C.EDC 10-15 00:54
DX: K52.9 Noninfective gastroenteritis and colitis, unspecified (principal); E78.5 Hyperlipidemia, unspecified; Z90.49 Acquired absence of other specified parts of digestive tract; Z84.1 Family history of disorders of kidney and ureter

== ENCOUNTER 2018-02-07 17:28 | Emergency (ER) | payer OTHER ==
[~2018-02-07] VITALS: Ht 177.8 cm; Wt 79.1 kg
[~2018-02-07 17:28] MED LIST changes: -IBUP-1050 PO; +ONDA4TAB10 SL; -PANT40TA PO; -PSYL0.524 PO
[2018-02-07 17:37] VITALS: TEMP 37; Ht 177.8 cm; Wt 79.1 kg
[2018-02-07] MEDS ORDERED: ONDANSETRON INJ 2 MG/ML 2 ML VIAL IV STA (18:45)
[2018-02-07] MEDS ORDERED: KETOROLAC TROMETHAMINE 30 MG/ML VIAL IV STA (18:45)
[2018-02-07] MEDS ORDERED: SODIUM CHLORIDE 0.9% 1000ML 1,000 ML IV STA (18:45)
[2018-02-07] MEDS ORDERED: OPTIRAY 320 IV PRN (19:00)
[2018-02-07 19:15] LABS: BASO % 0.2 %; BASO ABS # 0.02 K/uL (0-0.2); EOS % 0.8 %; EOS ABS # 0.08 K/uL (0-0.5); IG# 0.02 K/uL (0.00-0.02); LYMPH ABS # 3.16 K/uL (1.2-3.4); MEAN CELL VOLUME 90.4 fL (80-100); MEAN CORPUSCULAR HEMOGLOBIN 30.8 pg (25-34); MEAN PLATELET VOLUME 11.4 fL (7.4-10.4); MONO % 6.8 %; MONO ABS # 0.69 K/uL (0.11-0.59); NEUT ABS # 6.21 K/uL (1.4-6.5); PLATELET COUNT 201 K/uL (130-400); RED CELL DISTRIBUTION WIDTH SD 42.8 fL (36.4-46.3); WHITE BLOOD COUNT 10.18 K/uL (4.8-10.8)
[2018-02-07 19:33] LABS: CALCIUM 9.2 mg/dl (8.5-10.1); CREATININE 1.04 mg/dl (0.60-1.40); POTASSIUM 4.1 mmol/L (3.5-5.1)
[2018-02-07 19:36] LABS: TOTAL PROTEIN 8.1 gm/dl (6.4-8.2)
[2018-02-07] MEDS ORDERED: IBUP-103 PO (19:40)
--- NOTE | 2018-02-07 20:23 | DIAGNOSTIC IMAGING REPORT ---
ABD/PELVIS IV CONTRAST ONLY CLINICAL HISTORY: 62 years-old Male presenting with abd pain periumbilical . TECHNIQUE: Multidetector CT of the abdomen and pelvis was performed after the administration of intravenous contrast. IV contrast: 93 mL of Optiray 320. A dose lowering technique was used consistent with the principles of ALARA (as low as reasonably achievable). COMPARISON: 10/14/2017. CT DOSE (mGy.cm): The estimated cumulative dose is 374.85 mGy.cm. FINDINGS: [employer] topogram: Unremarkable. Lung bases: Minimal basilar opacities, likely atelectasis. Trace emphysematous changes or pulmonary cysts noted. Mild multichamber enlargement of the heart. Aortic valve calcification. No pericardial or pleural effusion. Liver: Normal morphology. Density suggestive of hepatic steatosis. Perfusional variation or less severe hepatic steatosis centrally in the liver. No focal lesion. Patent hepatic vasculature. Biliary: No intrahepatic or extrahepatic biliary ductal dilatation. Normal gallbladder. Pancreas: Normal. Spleen: Normal. Adrenal glands: Normal. Kidneys and ureters: Normal. No hydronephrosis. Ureters mildly prominent though no obstructing calculi or mass evident. Bladder: Circumferential bladder wall thickening. Pelvic organs: Prostate enlargement likely secondary to benign prostatic hyperplasia. Bowel: Diverticulosis of the distal descending and proximal sigmoid colon. No pericolonic inflammatory change. Scattered diverticula elsewhere in the colon. The cecum is located in the left lower quadrant. No bowel obstruction. Nonvisualization of the appendix though no inflammatory change is evident in the region of the cecum. An anastomotic suture line may be present in the small bowel in the superior pelvis (series 3 image 301). Peritoneal cavity: No free fluid or intraperitoneal gas. Infiltration of the root of the small bowel mesentery. Redemonstration of a nonspecific focal site of infiltration in the omentum (series 3 image 172). This was present on the prior exam and is unchanged. Lymph nodes: No enlarged lymph nodes in the abdomen or pelvis. Vasculature: Atherosclerosis of the abdominal aorta, which demonstrates mild ectasia in the infrarenal portion, measuring up to 2.8 cm in diameter (series 3 image 186). IVC patent. Suggestion of bilateral varicoceles. Abdominal wall: Postsurgical changes of the midline ventral abdominal wall. Musculoskeletal: Normal. IMPRESSION: 1. Bladder wall thickening could suggest cystitis or more likely chronic bladder outlet obstruction in setting of prostatomegaly. 2. 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 This can be variably symptomatic. This was present on the prior exam to a slightly lesser degree. 3. Focal infiltration in the omentum of the left anterior abdomen, similar to prior exam and possibly representing a small focal omental infarct. 4. Hepatic steatosis. Correlate with liver function tests to exclude steatohepatitis as a cause for abdominal pain. 5. Diverticulosis. 6. Nonvisualization of the appendix though no inflammatory changes evident in the region of the cecum, which is located in the left lower quadrant. Electronically signed by: Tariq Longoria M.D. 02/07/2018 8:22 PM Dictated Date/Time: 02/07/2018 8:13 PM
[2018-02-07 21:37] VITALS: BP 116/72; PULSE 78; O2SAT 98
--- NOTE | 2018-02-08 00:13 | EMERGENCY ROOM VISIT NOTE ---
History Report prepared by Eduard: Sandra Reyna Under the Supervision of: Dr. Jaciel Fitzgerald D.O. First contact with patient: 18:38 Chief Complaint: ABDOMINAL PAIN Stated Complaint: STOMACH TENDERNESS AND PAINS Nursing Triage Summary: Pt reports pain across middle of abd, worse on right side. Pt states hernia surgery 1 yr ago, told at that time that gall bladder will need to come out. Pain over the past week. Pain in right shoulder this afternoon, now resolved. Denies n/v/d. Pain worse after eating "gravy puts the pain in orbit." History of Present Illness The patient is a 62 year old male who presents to the Emergency Room with complaints of persistent right sided abdominal pain starting yesterday. The pain worsens with pressing on his abdomen. 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 Currently the pain is a 1 out of 10 but on palpation significantly worsens. Pain is just the right of the umbilicus. It does not worsen with eating or drinking. He denies any nausea, vomiting, cough, runny nose, chest pain, SOB, or urinary symptoms. His last bowel movement was this morning. The patient had hernia surgery last year. At that time, he was told that his gallbladder would need to be removed at some point. He has had abdominal pain with eating fatty foods, especially gravy. Source of History: patient Onset: yesterday Position: abdomen (right) Timing: other (persistent) Modifying Factors (Worsening): other (bending over) Associated Symptoms: No cough, No chest pain, No SOB, No nausea, No vomiting , No urinary symptoms Review of Systems See HPI for pertinent positives & negatives. A total of 10 systems reviewed and were otherwise negative. Past Medical & Surgical Medical Problems: (1) Adhesion of abdominal wall (2) Diverticulitis (3) Hyperlipemia (4) Intestinal obstruction (5) SBO (small bowel obstruction) (6) Ventral hernia Surgical Problems: (1) S/P colon resection Family History Blood clots Kidney disease Kidney stones Social History Smoking Status: Never Smoker Drug Use: none Marital Status: Housing Status: lives with family Occupation Status: employed Current/Historical Medications Scheduled PRN Ibuprofen Tab (Advil), 400 MG PO UD PRN for Pain or Fever Allergies Coded Allergies: No Known Allergies (Verified , 10/14/17) Physical Exam Vital Signs Date Time Temp Pulse Resp B/P (MAP) Pulse Ox O2 Delivery O2 Flow Rate FiO2 02/07/18 21:37 78 20 116/72 98 02/07/18 20:20 76 18 128/78 96 Room Air 02/07/18 19:02 78 18 151/90 98 Room Air 02/07/18 17:37 37.0 80 18 148/82 96 Room Air Physical Exam GENERAL: Sitting up in bed, alert, well appearing, well nourished, no distress, non-toxic EYE EXAM: normal conjunctiva. PERRL and EOM's grossly intact. OROPHARYNX: no exudate, no erythema, lips, buccal mucosa, and tongue normal and mucous membranes are moist NECK: supple, no nuchal rigidity, no adenopathy, non-tender LUNGS: Clear to auscultation. Normal chest wall mechanics HEART: no murmurs, S1 normal and S2 normal ABDOMEN: abdomen soft, just right of umbilicus and right mid abdominal pain tracking laterally, normo-active bowel sounds, no masses, no rebound or guarding. BACK: Back is symmetrical on inspection and there is no deformity, no midline tenderness, no CVA tenderness. SKIN: no rashes and no bruising UPPER EXTREMITIES: upper extremities are grossly normal. LOWER EXTREMITIES: No pitting edema. NEURO EXAM: Normal sensorium, cranial nerves II-XII grossly intact, normal speech, no gross weakness of arms, no gross weakness of legs. Medical Decision & Procedures ER Provider Diagnostic Interpretation: Radiology results as stated below per my review and the radiologist's interpretation: ABD/PELVIS IV CONTRAST ONLY CLINICAL HISTORY: 62 years-old Male presenting with abd pain periumbilical . TECHNIQUE: Multidetector CT of the abdomen and pelvis was performed after the administration of intravenous contrast. IV contrast: 93 mL of Optiray 320. A dose lowering technique was used consistent with the principles of ALARA (as low as reasonably achievable). COMPARISON: 10/14/2017. CT DOSE (mGy.cm): The estimated cumulative dose is 374.85 mGy.cm. FINDINGS: Barrel Liner topogram: Unremarkable. Lung bases: Minimal basilar opacities, likely atelectasis. Trace emphysematous changes or pulmonary cysts noted. Mild multichamber enlargement of the heart. Aortic valve calcification. No pericardial or pleural effusion. Liver: Normal morphology. Density suggestive of hepatic steatosis. Perfusional variation or less severe hepatic steatosis centrally in the liver. No focal lesion. Patent hepatic vasculature. Biliary: No intrahepatic or extrahepatic biliary ductal dilatation. Normal gallbladder. Pancreas: Normal. Spleen: Normal. Adrenal glands: Normal. Kidneys and ureters: Normal. No hydronephrosis. Ureters mildly prominent though no obstructing calculi or mass evident. Bladder: Circumferential bladder wall thickening. Pelvic organs: Prostate enlargement likely secondary to benign prostatic hyperplasia. Bowel: Diverticulosis of the distal descending and proximal sigmoid colon. No pericolonic inflammatory change. Scattered diverticula elsewhere in the colon. The cecum is located in the left lower quadrant. No bowel obstruction. Nonvisualization of the appendix though no inflammatory change is evident in the region of the cecum. An anastomotic suture line may be present in the small bowel in the superior pelvis (series 3 image 301). Peritoneal cavity: No free fluid or intraperitoneal gas. Infiltration of the root of the small bowel mesentery. Redemonstration of a nonspecific focal site of infiltration in the omentum (series 3 image 172). This was present on the prior exam and is unchanged. Lymph nodes: No enlarged lymph nodes in the abdomen or pelvis. Vasculature: Atherosclerosis of the abdominal aorta, which demonstrates mild ectasia in the infrarenal portion, measuring up to 2.8 cm in diameter (series 3 image 186). IVC patent. Suggestion of bilateral varicoceles. Abdominal wall: Postsurgical changes of the midline ventral abdominal wall. Musculoskeletal: Normal. IMPRESSION: 1. Bladder wall thickening could suggest cystitis or more likely chronic bladder outlet obstruction in setting of prostatomegaly. 2. 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 This can be variably symptomatic. This was present on the prior exam to a slightly lesser degree. 3. Focal infiltration in the omentum of the left anterior abdomen, similar to prior exam and possibly representing a small focal omental infarct. 4. Hepatic steatosis. Correlate with liver function tests to exclude steatohepatitis as a cause for abdominal pain. 5. Diverticulosis. 6. Nonvisualization of the appendix though no inflammatory changes evident in the region of the cecum, which is located in the left lower quadrant. Electronically signed by: Tariq Longoria M.D. 02/07/2018 8:22 PM Dictated Date/Time: 02/07/2018 8:13 PM Laboratory Results 02/07/18 18:54 Red Blood Count 5.20, Mean Corpuscular Volume 90.4, Mean Corpuscular Hemoglobin 30.8, Mean Corpuscular Hemoglobin Concent 34.0, Mean Platelet Volume 11.4, Neutrophils (%) (Auto) 61.0, Lymphocytes (%) (Auto) 31.0, Monocytes (%) (Auto) 6.8, Eosinophils (%) (Auto) 0.8, Basophils (%) (Auto) 0.2, Neutrophils # (Auto) 6.21, Lymphocytes # (Auto) 3.16, Monocytes # (Auto) 0.69, Eosinophils # (Auto) 0.08, Basophils # (Auto) 0.02 02/07/18 18:54 Test 02/07/18 18:54 White Blood Count 10.18 K/uL (4.8-10.8) Red Blood Count 5.20 M/uL (4.7-6.1) Hemoglobin 16.0 g/dL (14.0-18.0) Hematocrit 47.0 % (42-52) Mean Corpuscular Volume 90.4 fL (80-100) Mean Corpuscular Hemoglobin 30.8 pg (25-34) Mean Corpuscular Hemoglobin Concent 34.0 g/dl (32-36) Platelet Count 201 K/uL (130-400) Mean Platelet Volume 11.4 fL (7.4-10.4) Neutrophils (%) (Auto) 61.0 % Lymphocytes (%) (Auto) 31.0 % Monocytes (%) (Auto) 6.8 % Eosinophils (%) (Auto) 0.8 % Basophils (%) (Auto) 0.2 % Neutrophils # (Auto) 6.21 K/uL (1.4-6.5) Lymphocytes # (Auto) 3.16 K/uL (1.2-3.4) Monocytes # (Auto) 0.69 K/uL (0.11-0.59) Eosinophils # (Auto) 0.08 K/uL (0-0.5) Basophils # (Auto) 0.02 K/uL (0-0.2) RDW Standard Deviation 42.8 fL (36.4-46.3) RDW Coefficient of Variation 13.0 % (11.5-14.5) Immature Granulocyte % (Auto) 0.2 % Immature Granulocyte # (Auto) 0.02 K/uL (0.00-0.02) Urine Color YELLOW Urine Appearance CLEAR (CLEAR) Urine pH 7.0 (4.5-7.5) Urine Specific [place] 1.022 (1.000-1.030) Urine Protein NEG (NEG) Urine Glucose (UA) NEG (NEG) Urine Ketones NEG (NEG) Urine Occult Blood NEG (NEG) Urine Nitrite NEG (NEG) Urine Bilirubin NEG (NEG) Urine Urobilinogen NEG (NEG) Urine Leukocyte Esterase NEG (NEG) Urine WBC (Auto) 0 /hpf (0-5) Urine RBC (Auto) 0-4 /hpf (0-4) Urine Hyaline Casts (Auto) 0 /lpf (0-5) Urine Epithelial Cells (Auto) 0-5 /lpf (0-5) Urine Bacteria (Auto) NEG (NEG) Anion Gap 5.0 mmol/L (3-11) Est Creatinine Clear Calc Drug Dose 75.1 ml/min Estimated GFR () 88.1 Estimated GFR (Non- 76.1 BUN/Creatinine Ratio 14.1 (10-20) Calcium Level 9.2 mg/dl (8.5-10.1) Total Bilirubin 0.6 mg/dl (0.2-1) Direct Bilirubin 0.1 mg/dl (0-0.2) Aspartate Amino Transf (AST/SGOT) 38 U/L (15-37) Alanine Aminotransferase (ALT/SGPT) 56 U/L (12-78) Alkaline Phosphatase 64 U/L (45-117) Total Protein 8.1 gm/dl (6.4-8.2) Albumin 4.0 gm/dl (3.4-5.0) Lipase 240 U/L (73-393) Laboratory results per my review. Medications Administered Medications (Trade) Dose Ordered Sig/[place] Route Start Time Stop Time Status Last Admin Dose Admin Sodium Chloride 1,000 ml @ 999 mls/hr Q1H1M STAT IV 02/07/18 18:45 02/07/18 19:45 DC 02/07/18 19:00 999 MLS/HR Ondansetron HCl (Zofran Inj) 4 mg NOW STAT IV 02/07/18 18:45 18 18:46 DC 02/07/18 19:00 4 MG Ketorolac Tromethamine (Toradol Inj) 30 mg NOW STAT IV 02/07/18 18:45 02/07/18 18:46 DC 02/07/18 19:01 30 MG ED Course ED COURSE: Vital signs were reviewed and showed normal vitals. The patients medical record was reviewed The above diagnostic studies were performed and reviewed. ED treatments and interventions as stated above. 1838: The patient was evaluated in room B3B. A complete history and physical examination was performed. 1844: Toradol Inj 30 mg IV, Zofran Inj 4 mg IV, Sodium Chloride 1000 ml @ 999 mls/hr IV. 2047: Upon reevaluation, the patient is resting comfortably. I discussed my findings with the patient and he understands and agrees with the treatment plan. Based on the patients age, coexisting illnesses, exam and lab findings the decision to treat as an outpatient was made. The patient remained stable while under my care. The patient appeared well at the time of discharge. Medical Decision Differential diagnoses includes but is not limited to gastritis, peptic ulcer disease, GERD, gallbladder disease, pancreatitis, small bowel obstruction, acute coronary syndrome, pericarditis, ischemic bowel, irritable bowel disease, irritable bowel syndrome, appendicitis, diverticulitis, malignancy, hernia, urinary tract infection, torsion, perforation, trauma, infectious. Patient is a 62-year-old male that presents to ER for abdominal pain located just to the right of the umbilicus. It is reproducible and focal. No signs of peritonitis. Vitals are stable. CBC along with BMP, LFTs, bilirubin lipase is unremarkable. UA was negative. CT shows infiltration of the mesentery suggesting panniculitis and infiltration of the omentum which is old. Patient was given Toradol did feel significant better. He was given fluids. He was updated at bedside. He was discharged to follow-up with general surgery on Monday as he already has an appointment scheduled. Discussed with Pt concerning signs and symptoms to watch out for. Pt was instructed to follow up with their PCP and discussed with the patient their option to return to the ED at anytime for persistent or worsening symptoms. The appropriate anticipatory guidance and out-patient management, including indications for return to the emergency department, were explained at length to the patient and understood. Medication Reconcilliation Current Medication List: was personally reviewed by me Blood Pressure Screening Patient's blood pressure: Normal blood pressure Blood pressure disposition: Did not require urgent referral Impression Primary Impression: Abdominal pain Scribe Attestation The scribe's documentation has been prepared under my direction and personally reviewed by me in its entirety. I confirm that the note above accurately reflects all work, treatment, procedures, and medical decision making performed by me. Departure Information Dispostion Home / Self-Care Forms Call Back Authorization, HOME CARE DOCUMENTATION FORM, IMPORTANT VISIT INFORMATION Patient Instructions Abdominal Pain - [facility], [facility] Additional Instructions Please follow up with your primary care doctor with in the next 24 hours. Any worsening of your symptoms, please return to the ED immediately. This includes any fevers greater than 100.4, worsening pain, chest pain, shortness breath, persistent nausea, vomiting, unable to eat or drink, or any other concerning signs or symptoms from your standpoint. Please take Tylenol or Motrin as needed for pain. Please follow-up with general surgery on Monday as you already have an appointment. Problem Qualifiers Primary Impression: Abdominal pain Abdominal location: unspecified location Qualified Codes: R10.9 - Unspecified abdominal pain
== END 2018-02-07 21:39 | disposition home or self-care (01) ==
LOC: C.EDB 17:29
DX: R10.9 Unspecified abdominal pain (principal); E78.5 Hyperlipidemia, unspecified